=== PATIENT | male | born 1935 | race Caucasian/White ===

== ENCOUNTER 2022-12-02 09:46 | Emergency (ER) | payer MEDICARE ==
[2022-12-02 10:06] VITALS: RESP 18
[2022-12-02] MEDS ORDERED: CIPROFLOXACIN-DEXAMETH 0.3-0.1% DROPS 7.5 ML BTL RIGHT EAR STA (11:00)
--- NOTE | 2022-12-02 11:06 | ED ---
General Adult HPI - General Chief complaint: ENT Stated complaint: rt ear issues Time Seen by Provider: 12/02/22 10:09 Source: patient, RN notes reviewed Mode of arrival: ambulatory - History of Present Illness Initial comments: 87-year-old male presents emergency Department with chief complaint of right ear drainage and pain. He also reports muffled hearing. He states that he has had his ear irrigated from his primary care provider multiple times. He has been on neomycin drops for the past week. Patient states that he follows up closely with his primary care provider but he is visiting from out of town. He states that he is typically healthy. He reports that he is a nondiabetic. Denies fever, chills, nausea, vomiting. Denies dizziness. - Related Data Allergies Allergy/AdvReac Type Severity Reaction Status Date / Time No Known Allergies Allergy Verified 12/02/22 10:05 Review of Systems ROS Statement: Those systems with pertinent positive or pertinent negative responses have been documented in the HPI. ROS Other: All systems not noted in ROS Statement are negative. Past Medical History Past Medical History: Coronary Artery Disease (CAD) History of Any Multi-Drug Resistant Organisms: None Reported Past Surgical History: Coronary Bypass/CABG Past Psychological History: No Psychological Hx Reported Smoking Status: Never smoker Past Alcohol Use History: None Reported Past Drug Use History: None Reported General Exam Limitations: no limitations General appearance: alert, in no apparent distress Head exam: Present: atraumatic, normocephalic, normal inspection ENT exam: Present: normal exam, normal oropharynx, mucous membranes moist, TM's normal bilaterally, other (non-tender pinna, no tenderness over mastoid). Absent: normal external ear exam (purulent drainage from right ear canal with mild canal swelling) Neck exam: Present: normal inspection, full ROM. Absent: tenderness, meningismus, lymphadenopathy Respiratory exam: Present: normal lung sounds bilaterally. Absent: respiratory distress, wheezes, rales, rhonchi, stridor Cardiovascular Exam: Present: regular rate, normal rhythm, normal heart sounds. Absent: systolic murmur, diastolic murmur, rubs, gallop, clicks GI/Abdominal exam: Present: soft, normal bowel sounds. Absent: distended, tenderness, guarding, rebound, rigid Extremities exam: Present: normal inspection, full ROM, normal capillary refill. Absent: tenderness, pedal edema, joint swelling, calf tenderness Back exam: Present: normal inspection Neurological exam: Present: alert, oriented X3 Psychiatric exam: Present: normal affect, normal mood Skin exam: Present: warm, dry, intact, normal color. Absent: rash Course Vital Signs 12/02/22 12/02/22 10:01 11:51 Temperature 98.5 F 98.2 F Pulse Rate 70 72 Respiratory 18 18 Rate Blood Pressure 121/74 120/76 O2 Sat by Pulse 95 96 Oximetry Medical Decision Making - Medical Decision Making Was pt. sent in by a medical professional or institution (, PEYTON, RECREATIONAL RESORT MANAGER, urgent care, hospital, or senior care...) When possible be specific @ -No Did you speak to anyone other than the patient for history (EMS, parent, family, police, friend...)? What history was obtained from this source @ -No Did you review nursing and triage notes (agree or disagree)? Why? @ -I reviewed and agree with nursing and triage notes Were old charts reviewed (outside hosp., previous admission, EMS record, old EKG, old radiological studies, urgent care reports/EKG's, senior care records)? Report findings @ -No old charts were reviewed Differential Diagnosis (chest pain, altered mental status, abdominal pain women, abdominal pain men, vaginal bleeding, weakness, fever, dyspnea, syncope, headache, dizziness, GI bleed, back pain, seizure, CVA, palpatations, mental health, musculoskeletal)? @ -Otitis media, otitis externa, malignant otitis externa, mastoiditis, this list is not all-inclusive EKG interpreted by me (3pts min.). @ -none X-rays interpreted by me (1pt min.). @ -None done CT interpreted by me (1pt min.). @ -None done U/S interpreted by me (1pt. min.). @ -None done What testing was considered but not performed or refused? (CT, X-rays, U/S, labs)? Why? @ -None What meds were considered but not given or refused? Why? @ -None Did you discuss the management of the patient with other professionals (professionals i.e. PEYTON Quiroz, RECREATIONAL RESORT MANAGER, lab, RT, psych nurse, social scientist, regional sales engineer, teacher, commissioned security officer, renal case manager)? Give summary @ -No Was smoking cessation discussed for >3mins.? @ -No Was critical care preformed (if so, how long)? @ -No Were there social determinants of health that impacted care today? How? (Homelessness, low income, unemployed, alcoholism, drug addiction, transportation, low edu. Level, literacy, decrease access to med. care, longterm, rehab)? @ -No Was there de-escalation of care discussed even if they declined (Discuss DNR or withdrawal of care, Hospice)? DNR status @ -No What co-morbidities impacted this encounter? (DM, HTN, Smoking, COPD, CAD, Cancer, CVA, ARF, Chemo, Hep., AIDS, mental health diagnosis, sleep apnea, morbid obesity)? @ -None Was patient admitted / discharged? Hospital course, mention meds given and route, prescriptions, significant lab abnormalities, going to OR and other pertinent info. @ -Discharged. Patient presented to emergency department chief complaint of right ear drainage and muffled hearing. Patient has visible discharge from the right ear with mild erythema and swelling of the right ear canal. Patient has no risk factors for malignant otitis externa such as diabetes or immunosuppression. It is not having any systemic symptoms at this time. Patient ear drops switched to Ciprodex. Ear wick was placed. Patient given strict return precautions. Patient is going to follow up with his primary care provider when he returns home from his vacation or return to the nearest emergency Department if symptoms worsen or do not improve. Patient stable at time of discharge. Case discussed with my attending, Dr. [place] Undiagnosed new problem with uncertain prognosis? @ -No Drug Therapy requiring intensive monitoring for toxicity (Heparin, Nitro, Insulin, Cardizem)? @ -No Were any procedures done? @ -No Diagnosis/symptom? @ -Otitis externa Acute, or Chronic, or Acute on Chronic? @ -Acute Uncomplicated (without systemic symptoms) or Complicated (systemic symptoms)? @ -Uncomplicated Side effects of treatment? @ -No Exacerbation, Progression, or Severe Exacerbation? @ -No Poses a threat to life or bodily function? How? (Chest pain, USA, VA, pneumonia, PE, COPD, DKA, ARF, appy, cholecystitis, CVA, Diverticulitis, Homicidal, Ibrahim icidal, threat to staff... and all critical care pts) @ -No Disposition Clinical Impression: Otitis externa Disposition: HOME SELF-CARE Condition: Stable Instructions (If sedation given, give patient instructions): Earache (ED) Additional Instructions: Instill 4 ear drops twice a day for 1 week. Follow up with your primary care provider when you return home. Return to the emergency department if you develop new or worsening symptoms including fever. Is patient prescribed a controlled substance at d/c from ED?: No Referrals: Nonstaff,Physician [Primary Care Provider] - 1-2 days Time of Disposition: 11:28
[2022-12-02 11:53] VITALS: BP 120/76; PULSE 72; TEMP 98.2
== END 2022-12-02 11:36 | disposition home or self-care (01) ==
LOC: EC 09:46
DX: H60.91 Unspecified otitis externa, right ear (principal); I25.10 Atherosclerotic heart disease of native coronary artery without angina pectoris; Z95.1 Presence of aortocoronary bypass graft
CPT/HCPCS: 99282

== ENCOUNTER 2023-04-20 16:00 | Inpatient (IN) | payer MEDICARE ==
[2023-04-20 17:08] LABS: Basophils % (A) 1 %; Eosinophils # (A) 0.1 k/uL (0-0.7); Eosinophils % (A) 1 %; HCT 48.6 % (39.0-53.0); HGB 15.9 gm/dL (13.0-17.5); Hypochromasia Slight; Lymphocytes # (A) 1.1 k/uL (1.0-4.8); Lymphocytes % (A) 15 %; MCH 36.9 pg (25.0-35.0); MCHC 32.6 g/dL (31.0-37.0); MCV 112.9 fL (80.0-100.0); Macrocytosis Marked; Mean Platelet Volume 10.6; Monocytes # (A) 0.7 k/uL (0-1.0); Monocytes % (A) 9 %; Neutrophils # (A) 5.5 k/uL (1.3-7.7); Neutrophils % (A) 72 %; Platelet Count 125 k/uL (150-450); RDW 14.7 % (11.5-15.5); WBC 7.6 k/uL (3.8-10.6)
[2023-04-20 17:22] LABS: INR 1.1 (<1.2); Partial Thromboplastin Time 26.3 sec (22.0-30.0); Prothrombin Time 12.1 sec (10.0-12.5)
[2023-04-20 17:53] LABS: ALT 39 U/L (4-49); AST 62 U/L (17-59); African American GFR (CKD) 87 (>60 ml/min/1.73 sqM); Albumin 3.7 g/dL (3.5-5.0); Alkaline Phosphatase 218 U/L (38-126); Anion Gap 11 mmol/L; Blood Urea Nitrogen 28 mg/dL (9-20); Calcium 9.1 mg/dL (8.4-10.2); Carbon Dioxide 24 mmol/L (22-30); Chloride 100 mmol/L (98-107); Glucose 90 mg/dL (74-99); Non-African American GFR(CKD) 76 (>60 ml/min/1.73 sqM); Potassium 4.8 mmol/L (3.5-5.1); Sodium 135 mmol/L (137-145); Total Bilirubin 1.5 mg/dL (0.2-1.3); Total Protein 7.3 g/dL (6.3-8.2)
[2023-04-20 18:00] LABS: NT-Pro-B-Type Natriuretic Pept 5120 pg/mL
[2023-04-20] MEDS ORDERED: FUROSEMIDE 10 MG/ML 4 ML VIAL IV STA (18:11)
[2023-04-20] MEDS ORDERED: ASPIRIN 81 MG PO STA (18:11)
[2023-04-20] MEDS ORDERED: NALOXONE 0.4 MG/ML 1 ML VIAL IV PRN (18:22)
--- NOTE | 2023-04-20 18:23 | ED ---
General Adult HPI - General Chief complaint: Shortness of Breath Stated complaint: GARCIA-Leg swelling Time Seen by Provider: 04/20/23 16:25 Source: patient, RN notes reviewed, old records reviewed Mode of arrival: wheelchair Limitations: no limitations - History of Present Illness Initial comments: Patient is a 88-year-old male who recently moved here from [place] some last week presents emergency Department complaint worsening shortness of breath for t he last 2-3 weeks. Also has noticed worsening lower extremity edema. Denies any chest pain. Endorses worsening orthopnea and exertional dyspnea. Is supposed family 6 but has been without a prescription for the last 3 weeks. Has a history of CABG. Also had a history of atrial fibrillation previous on blood thinners but no longer on blood thinners. Has a pacemaker. Denies any nausea or vomiting. Does endorse mild weakness. Has no other acute complaints at this time. Recently moved here and has not established care with anyone in the area. Presents for further evaluation at this time. - Related Data Allergies Allergy/AdvReac Type Severity Reaction Status Date / Time No Known Allergies Allergy Verified 04/20/23 16:20 Review of Systems ROS Statement: Those systems with pertinent positive or pertinent negative responses have been documented in the HPI. Review of Systems: CONST: Denies fever EYES: Denies blurry vision ENT: Denies nasal congestion C/V: Denies Chest pain RESP: Endorses dyspnea GI: Denies abdominal pain : Denies dysuria SKIN: Denies rash. MSK: Denies joint pain. NEURO: Denies headache ROS Other: All systems not noted in ROS Statement are negative. Past Medical History Past Medical History: Coronary Artery Disease (CAD) History of Any Multi-Drug Resistant Organisms: None Reported Past Surgical History: Coronary Bypass/CABG Past Psychological History: No Psychological Hx Reported Smoking Status: Never smoker Past Alcohol Use History: None Reported Past Drug Use History: None Reported General Exam - General Exam Comments Initial Comments: General: Appears in no acute distress. HEAD: Normal with no signs of head trauma. EYES: PERRLA, EOMI, conjunctiva normal, no discharge. ENT: Hearing grossly intact, normal oropharynx. RESPIRATORY: Coarse breath sounds bilaterally. Normal oximetry on 3 L nasal cannula. No increased work of breathing at rest. C/V: Regular rate and rhythm. S1 and S2 auscultated, 3+ bilateral lower extremity pitting edema that is symmetric., peripheral pulses 2+ and intact throughout ABD: Abd is soft, nontender, nondistended EXT: Normal range of motion, no obvious deformity SKIN: No rashes or lesions observed on exposed skin. NEURO: Alert and oriented x 4. Limitations: no limitations Course Vital Signs 04/20/23 04/20/23 16:12 16:42 Temperature 97.8 F Pulse Rate 73 69 Respiratory 20 20 Rate Blood Pressure 135/72 127/85 O2 Sat by Pulse 99 100 Oximetry Medical Decision Making - Medical Decision Making Was pt. sent in by a medical professional or institution (, PA, INDUSTRIAL ENGINEER, urgent care, hospital, or long term...) When possible be specific @ -No Did you speak to anyone other than the patient for history (EMS, parent, family, police, friend...)? What history was obtained from this source @ -No Did you review nursing and triage notes (agree or disagree)? Why? @ -I reviewed and agree with nursing and triage notes Were old charts reviewed (outside hosp., previous admission, EMS record, old EKG, old radiological studies, urgent care reports/EKG's, long term records)? Report findings @ -No old charts were reviewed Differential Diagnosis (chest pain, altered mental status, abdominal pain women, abdominal pain men, vaginal bleeding, weakness, fever, dyspnea, syncope, h eadache, dizziness, GI bleed, back pain, seizure, CVA, palpatations, mental health, musculoskeletal)? @ -Differential Dyspnea: Coronary syndrome, arrhythmia, tamponade, asthma, COPD, pulmonary embolism, pneumonia, pneumothorax, pulmonary effusion, anaphylaxis, diabetic ketoacidosis, flailed chest, pulmonary contusion, diaphragmatic rupture, anemia, neuromuscular, this is not meant to be an all-inclusive list. EKG interpreted by me (3pts min.). @ -As above X-rays interpreted by me (1pt min.). @ -Chest x-ray reveals diffuse bilateral pulmonary vascular congestion CT interpreted by me (1pt min.). @ -None done U/S interpreted by me (1pt. min.). @ -None done What testing was considered but not performed or refused? (CT, X-rays, U/S, labs)? Why? @ -None What meds were considered but not given or refused? Why? @ -None Did you discuss the management of the patient with other professionals (professionals i.e. , PA, INDUSTRIAL ENGINEER, lab, RT, psych nurse, child welfare social worker, k [employer] school principal, teacher, transport corps officer, case management specialist)? Give summary @ - I spoke with the admitting physician, [facility] call Dr. Koroma [facility] who accepted the patient. Was smoking cessation discussed for >3mins.? @ -No Was critical care preformed (if so, how long)? @ -No Were there social determinants of health that impacted care today? How? (Homelessness, low income, unemployed, alcoholism, drug addiction, transportation, low edu. Level, literacy, decrease access to med. care, detention, rehab)? @ -No Was there de-escalation of care discussed even if they declined (Discuss DNR or withdrawal of care, Hospice)? DNR status @ -No What co-morbidities impacted this encounter? (DM, HTN, Smoking, COPD, CAD, Cancer, CVA, ARF, Chemo, Hep., AIDS, mental health diagnosis, sleep apnea, morbi d obesity)? @ -None Was patient admitted / discharged? Hospital course, mention meds given and route, prescriptions, significant lab abnormalities, going to OR and other pertinent info. @ -Based on patient's presentation and physical exam, I do strongly suspect a CHF exacerbation. The patient. We will obtain cardiac primary labs. He was in agreement this plan. Vital signs within acceptable limits at this time. EKG shows no signs of acute ischemia. Chest x-ray shows diffuse pulmonary vascular congestion. Labs are remarkable for a BNP of 5100. Troponin is not elevated. Remainder the labs except for limits. I did the patient. He will be admitted. Cardiology consulted. Echo ordered. Patient started on twice a day 40 mg Lasix. He was in agreement this plan. Patient is uncertain what his home dose of Lasix was. I spoke with the admitting physician, [facility] call Dr. Rodriguez [facility] who accepted the patient. Undiagnosed new problem with uncertain prognosis? @ -No Drug Therapy requiring intensive monitoring for toxicity (Heparin, Nitro, Insulin, Cardizem)? @ -No Were any procedures done? @ -No Diagnosis/symptom? @ -CHF Acute, or Chronic, or Acute on Chronic? @ -Acute on chronic Uncomplicated (without systemic symptoms) or Complicated (systemic symptoms)? @ -Complicated Side effects of treatment? @ -No Exacerbation, Progression, or Severe Exacerbation? @ -Exacerbation Poses a threat to life or bodily function? How? (Chest pain, USA, VA, pneumonia, PE, COPD, DKA, ARF, appy, cholecystitis, CVA, Diverticulitis, Homicidal, Suicidal, threat to staff... and all critical care pts) @ -Yes - Lab Data Result diagrams: 04/20/23 16:54 04/20/23 16:54 Lab Results 04/20/23 04/20/23 04/20/23 Range/Units 16:54 16:54 16:54 WBC 7.6 (3.8-10.6) k/uL RBC 4.30 (4.30-5.90) m/uL Hgb 15.9 (13.0-17.5) gm/dL Hct 48.6 (39.0-53.0) % MCV 112.9 H (80.0-100.0) fL MCH 36.9 H (25.0-35.0) pg MCHC 32.6 (31.0-37.0) g/dL RDW 14.7 (11.5-15.5) % Plt Count 125 L (150-450) k/uL MPV 10.6 Neutrophils % 72 % Lymphocytes % 15 % Monocytes % 9 % Eosinophils % 1 % Basophils % 1 % Neutrophils # 5.5 (1.3-7.7) k/uL Lymphocytes # 1.1 (1.0-4.8) k/uL Monocytes # 0.7 (0-1.0) k/uL Eosinophils # 0.1 (0-0.7) k/uL Basophils # 0.0 (0-0.2) k/uL Manual Slide Review Performed Hypochromasia Slight Macrocytosis Marked A PT 12.1 (10.0-12.5) sec INR 1.1 (<1.2) APTT 26.3 (22.0-30.0) sec Sodium 135 L (137-145) mmol/L Potassium 4.8 (3.5-5.1) mmol/L Chloride 100 (98-107) mmol/L Carbon Dioxide 24 (22-30) mmol/L Anion Gap 11 mmol/L BUN 28 H (9-20) mg/dL Creatinine 0.91 (0.66-1.25) mg/dL Est GFR (CKD-EPI)AfAm 87 (>60 ml/min/1.73 sqM) Est GFR (CKD-EPI)NonAf 76 (>60 ml/min/1.73 sqM) Glucose 90 (74-99) mg/dL Calcium 9.1 (8.4-10.2) mg/dL Magnesium 2.0 (1.6-2.3) mg/dL Total Bilirubin 1.5 H (0.2-1.3) mg/dL AST 62 H (17-59) U/L ALT 39 (4-49) U/L Alkaline Phosphatase 218 H (38-126) U/L Troponin I (0.000-0.034) ng/mL NT-Pro-B Natriuret Pep 5120 pg/mL Total Protein 7.3 (6.3-8.2) g/dL Albumin 3.7 (3.5-5.0) g/dL Influenza Type A (PCR) (Not Detectd) Influenza Type B (PCR) (Not Detectd) RSV (PCR) (Not Detectd) SARS-CoV-2 (PCR) (Not Detectd) 04/20/23 04/20/23 Range/Units 16:54 16:54 WBC (3.8-10.6) k/uL RBC (4.30-5.90) m/uL Hgb (13.0-17.5) gm/dL Hct (39.0-53.0) % MCV (80.0-100.0) fL MCH (25.0-35.0) pg MCHC (31.0-37.0) g/dL RDW (11.5-15.5) % Plt Count (150-450) k/uL MPV Neutrophils % % Lymphocytes % % Monocytes % % Eosinophils % % Basophils % % Neutrophils # (1.3-7.7) k/uL Lymphocytes # (1.0-4.8) k/uL Monocytes # (0-1.0) k/uL Eosinophils # (0-0.7) k/uL Basophils # (0-0.2) k/uL Manual Slide Review Hypochromasia Macrocytosis PT (10.0-12.5) sec INR (<1.2) APTT (22.0-30.0) sec Sodium (137-145) mmol/L Potassium (3.5-5.1) mmol/L Chloride (98-107) mmol/L Carbon Dioxide (22-30) mmol/L Anion Gap mmol/L BUN (9-20) mg/dL Creatinine (0.66-1.25) mg/dL Est GFR (CKD-EPI)AfAm (>60 ml/min/1.73 sqM) Est GFR (CKD-EPI)NonAf (>60 ml/min/1.73 sqM) Glucose (74-99) mg/dL Calcium (8.4-10.2) mg/dL Magnesium (1.6-2.3) mg/dL Total Bilirubin (0.2-1.3) mg/dL AST (17-59) U/L ALT (4-49) U/L Alkaline Phosphatase (38-126) U/L Troponin I 0.030 (0.000-0.034) ng/mL NT-Pro-B Natriuret Pep pg/mL Total Protein (6.3-8.2) g/dL Albumin (3.5-5.0) g/dL Influenza Type A (PCR) Not Detected (Not Detectd) Influenza Type B (PCR) Not Detected (Not Detectd) RSV (PCR) Not Detected (Not Detectd) SARS-CoV-2 (PCR) Not Detected (Not Detectd) - EKG Data -: EKG Interpreted by Me EKG Comments: 12-lead Electrocardiogram Interpretation Note EKG was reviewed and interpreted by myself. 12-lead ECG performed at 1629 is interpreted by me as revealing a paced rhythm at a rate of at 72 beats per minute. NE interval is 97 ms, QRS duration is 99 ms, QTc is 403 ms.. There were no obvious acute ST or T wave abnormalities to suggest myocardial ischemia or injury. R wave progression across the precordium was delayed. By my interpretation this EKG is non-diagnostic for acute ischemia. Disposition Clinical Impression: Congestive heart failure Disposition: ADMITTED IP TO THIS HOSP Condition: Stable Referrals: None,Stated [Primary Care Provider] - 1-2 days Time of Disposition: 18:11
[2023-04-20] MEDS: HEPARIN SODIUM,PORCINE 5,000 UNIT/ML 1 ML VIAL SQ SCH (20:14)
--- NOTE | 2023-04-20 20:57 | XR ---
EXAMINATION TYPE: XR chest 2V DATE OF EXAM: 04/20/2023 COMPARISON: None HISTORY: 88 year-old male shortness of breath, difficulty breathing TECHNIQUE: AP and lateral views FINDINGS: Median sternotomy wires are present with post-CABG changes. Left anterior chest wall pacemaker genera tor with right atrial and right ventricular leads. Heart mildly enlarged. Diffuse interstitial and pa tchy opacities are present throughout the lungs. Small bilateral pleural effusions. IMPRESSION: CHF with diffuse bilateral patchy pulmonary edema. Small effusions.
--- NOTE | 2023-04-21 01:57 | P.HPIM ---
History of Present Illness H&P Date: 04/20/23 Patient is a 88-year-old male with a PMH of CHF with pacemaker placement who presents to the emergency room with complaints of shortness of breath and lower extremity edema. The patient reports that he recently moved from [place] to be closer to his son here in [place]. He ran out of his Lasix 3 weeks ago. Reports gradually worsening dyspnea on exertion, lower extremity edema, and orthopnea. Denied chest discomfort, cough, fever, chills, nausea, vomiting. In the emergency room a chest x-ray revealed findings consistent with CHF with EKG showing an intermittently v-paced rhythm at 72 bpm as reviewed by me. Laboratory evaluation revealed a proBNP 5120, MCV 112.9, platelet count 125, tro ponin 0.030, total bilirubin 1.5, AST 62. ED documentation reviewed and case discussed with ED provider. Review of systems: Pertinent positives and negatives as discussed in HPI, a complete review of systems was performed and all other systems are negative. Physical examination: Vital signs reviewed General: non toxic, no distress, appears at stated age, normal weight Derm: no unusual rashes/lesions, warm Head: atraumatic, normocephalic, symmetric Eyes: EOMI, no lid lag, anicteric sclera, pupils equal round reactive to light ENT: Nose and ears atraumatic Neck: No cervical lymphadenopathy, trachea midline, supple Mouth: no lip lesion, mucus membranes moist Cardiovascular: S1S2 reg, no murmur, positive dorsalis pedis pulse bilateral, 2+ bilateral lower extremity pitting edema Lungs: Bibasilar rales without rhonchi or wheezing, no accessory muscle use Abdominal: soft, nontender to palpation, no guarding Ext: muscle strength 5 out of 5 in all 4 extremities grossly, no gross muscle atrophy, no contractures, Neuro: CN II-XI grossly intact, no gross focal neuro deficits Psych: Alert, oriented, appropriate affect Assessment: Acute CHF exacerbation Macrocytosis Thrombocytopenia, no baseline available for comparison Imaging: In the emergency room a chest x-ray revealed findings consistent with CHF with EKG showing an intermittently v-paced rhythm at 72 bpm as reviewed by me. Data Review: Laboratory evaluation revealed MCV 112.9, platelet count 125, troponin 0.030, total bilirubin 1.5, AST 62. Plan: Continue with Lasix IV 40 mg every 12 hourly Intake and output Daily weights Cardiology consult Cardiac monitoring Fluid restriction Check B12 and folate levels Obtain right upper quadrant ultrasound Monitor CBC Obtain echocardiogram DVT prophylaxis: Heparin subq The patient is admitted with an anticipated less than 2 midnight stay for evalu ation of acute CHF exacerbation CODE STATUS: Full Code Discussed with: Patient Anticipated discharge place: Home Past Medical History Past Medical History: Coronary Artery Disease (CAD) History of Any Multi-Drug Resistant Organisms: None Reported Past Surgical History: Coronary Bypass/CABG Past Psychological History: No Psychological Hx Reported Smoking Status: Never smoker Past Alcohol Use History: None Reported Past Drug Use History: None Reported Medications and Allergies Home Medications Medication Instructions Recorded Confirmed Type Thyroid,Pork [[place] Thyroid] 120 mg PO DAILY 04/20/23 04/20/23 History Allergies Allergy/AdvReac Type Severity Reaction Status Date / Time No Known Allergies Allergy Verified 04/20/23 18:47 Physical Exam Vitals: Vital Signs Temp Pulse Resp BP Pulse Ox 04/20/23 19:00 72 22 143/98 100 04/20/23 18:00 73 22 138/88 98 04/20/23 17:30 73 22 135/91 99 04/20/23 16:42 69 20 127/85 100 04/20/23 16:12 97.8 F 73 20 135/72 99 Intake and Output 04/20/23 04/20/23 04/21/23 14:59 22:59 06:59 Other: Weight 83.915 kg Results CBC & Chem 7: 04/20/23 16:54 04/20/23 16:54 Labs: Abnormal Lab Results - Last 24 Hours (Table) 04/20/23 04/20/23 Range/Units 16:54 16:54 MCV 112.9 H (80.0-100.0) fL MCH 36.9 H (25.0-35.0) pg Plt Count 125 L (150-450) k/uL Macrocytosis Marked A Sodium 135 L (137-145) mmol/L BUN 28 H (9-20) mg/dL Total Bilirubin 1.5 H (0.2-1.3) mg/dL AST 62 H (17-59) U/L Alkaline Phosphatase 218 H (38-126) U/L
[2023-04-21] MEDS: METOPROLOL SUCCINATE (ER) 25 MG TAB.ER.24H PO SCH (09:35)
[2023-04-21] MEDS: ASPIRIN 81 MG PO SCH (09:35)
[2023-04-21] MEDS: HEPARIN SODIUM,PORCINE 5,000 UNIT/ML 1 ML VIAL SQ SCH ×2 (09:36→20:17)
[2023-04-21] MEDS: FUROSEMIDE 10 MG/ML 4 ML VIAL IV SCH ×2 (09:36→20:17)
[2023-04-21] MEDS: THYROID, PORK 30 MG TAB PO SCH (10:04)
--- NOTE | 2023-04-21 10:17 | P.CRDCN ---
History of Present Illness Consult date: 04/21/23 Consult reason: congestive heart failure History of present illness: History of present illness: This is an 88-year-old male patient recently moved from [place] with past medical history of pacemaker, chronic atrial fibrillation, congestive heart failure, status post CABG in 2013-details not available. We have been asked to see the patient for CHF. Patient states he moved to [place] 3 days ago to apartment with his and will be near his son. He states he ran out of [employer] 2 weeks ago. He has chronic shortness of breath that has been going on for the past 6 months especially at nighttime but much worse over the past few days along with increased edema in his legs up to his thighs. He aslo complains of generalized pain in his legs from the edema. EKG pacemaker rhythm with intermittent atrial fibrillation Chest x-ray: CHF with diffuse bilateral patchy pulmonary edema. Small effusions. WBC 7.6, hemoglobin 15.9, platelet count 125. INR 1.1. Sodium 135, potassium 4.8, chloride 100, CO2 24, BUN 28 creatinine 0.91. Troponin negative 3. Magnesium 2.0. Blood sugar 90. Total bilirubin 1.5, AST 62, ALT 39, alkaline phosphatase 218. ProBNP 5120. Influenza A, influenza B, RSV, Covid 19 not detected Home cardiac medications: Only listed medication is [place] Thyroid. Review Of Systems: At the time of my exam: CONSTITUTIONAL: Denies fever or chills. CARDIOVASCULAR: Denies chest pain, + shortness of breath, no orthopnea, PND or palpitations. + edema. RESPIRATORY: Denies cough. GASTROINTESTINAL: Denies abdominal pain, diarrhea, constipation, nausea or vomiting. MUSCULOSKELETAL: Denies myalgias. NEUROLOGIC: Denies numbness, tingling or weakness. ENDOCRINE: Denies fatigue, weight change, polydipsia or polyurina. GENITOURINARY: Denies burning, hematuria or urgency with micturation. HEMATOLOGIC: Denies history of anemia or bleeding. Physical examination: Gen: This is an 88-year-old male resting on ER stretcher and appears to be comfortable and in no acute distress. No acute respiratory distress noted. VS: reviewed HEENT: Head is atraumatic, normocephalic. Pupils equal, round. Sclerae is anicteric. NECK: Supple. No JVD. LUNGS: Clear to auscultation. No wheezes or rhonchi. No intercostal retractions. HEART: Regular rate and rhythm. No murmur. ABDOMEN: Soft No tenderness. EXTREMITIES: 2+ pedal edema with edema up into the thigh. No calf tenderness. NEUROLOGICAL: Patient is awake, alert and oriented x3. Assessment: Acute on chronic heart failure Chronic atrial fibrillation status post pacemaker Coronary artery disease with previous CABG in 2012 Hypothyroidism Thrombocytopenia Plan: Continue patient on IV Lasix 40 mg every 12 hours Monitor I&O, who daily weights, electrolytes and renal function Start patient on aspirin 81 mg daily, atorvastatin 40 mg at bedtime, Toprol-XL 25 mg daily Obtain 2-D echocardiogram and Doppler study to assess cardiac structure and function Obtain cardiac records from patient's shop lead and [place] Obtain TSH with reflex free T4 Interrogate pacemaker, Medtronic Further recommendations to follow based upon clinical course Thank you kindly for this consultation. Nurse practitioner note has been reviewed, I agree with documented findings and plan of care. Patient was seen and examined. Past Medical History Past Medical History: Coronary Artery Disease (CAD) History of Any Multi-Drug Resistant Organisms: None Reported Past Surgical History: Coronary Bypass/CABG Past Psychological History: No Psychological Hx Reported Smoking Status: Never smoker Past Alcohol Use History: None Reported Past Drug Use History: None Reported Medications and Allergies Home Medications Medication Instructions Recorded Confirmed Type Thyroid,Pork [[place] Thyroid] 120 mg PO DAILY 04/20/23 04/20/23 History Allergies Allergy/AdvReac Type Severity Reaction Status Date / Time No Known Allergies Allergy Verified 04/20/23 18:47 Physical Exam Vitals: Vital Signs Temp Pulse Resp BP Pulse Ox 04/21/23 07:56 100 04/21/23 06:00 71 18 144/86 100 04/21/23 02:00 72 18 139/97 100 04/20/23 22:00 70 20 124/76 100 04/20/23 19:00 72 22 143/98 100 04/20/23 18:00 73 22 138/88 98 04/20/23 17:30 73 22 135/91 99 04/20/23 16:42 69 20 127/85 100 04/20/23 16:12 97.8 F 73 20 135/72 99 Intake and Output 04/20/23 04/21/23 04/21/23 22:59 06:59 14:59 Other: Weight 83.915 kg Results 04/20/23 16:54 04/20/23 16:54 Cardiac Enzymes 04/20/23 04/20/23 04/20/23 Range/Units 16:54 16:54 22:14 AST 62 H (17-59) U/L Troponin I 0.030 0.024 (0.000-0.034) ng/mL 04/21/23 Range/Units 01:08 AST (17-59) U/L Troponin I 0.027 (0.000-0.034) ng/mL Coagulation 04/20/23 Range/Units 16:54 PT 12.1 (10.0-12.5) sec APTT 26.3 (22.0-30.0) sec CBC 04/20/23 Range/Units 16:54 WBC 7.6 (3.8-10.6) k/uL RBC 4.30 (4.30-5.90) m/uL Hgb 15.9 (13.0-17.5) gm/dL Hct 48.6 (39.0-53.0) % Plt Count 125 L (150-450) k/uL Comprehensive Metabolic Panel 04/20/23 Range/Units 16:54 Sodium 135 L (137-145) mmol/L Potassium 4.8 (3.5-5.1) mmol/L Chloride 100 (98-107) mmol/L Carbon Dioxide 24 (22-30) mmol/L BUN 28 H (9-20) mg/dL Creatinine 0.91 (0.66-1.25) mg/dL Glucose 90 (74-99) mg/dL Calcium 9.1 (8.4-10.2) mg/dL AST 62 H (17-59) U/L ALT 39 (4-49) U/L Alkaline Phosphatase 218 H (38-126) U/L Total Protein 7.3 (6.3-8.2) g/dL Albumin 3.7 (3.5-5.0) g/dL Current Medications Generic Name Dose Route Start Last Admin Trade Name Freq PRN Reason Stop Dose Admin Furosemide 40 mg 04/21/23 09:00 Furosemide 10 Mg/Ml 4 Ml Vial IV Q12HR EDWARD Heparin Sodium (Porcine) 5,000 unit 04/20/23 21:00 04/20/23 20:14 Heparin Sodium,Porcine 5,000 Unit/Ml 1 Ml Vial SQ Not Given Q12HR EDWARD Naloxone HCl 0.2 mg 04/20/23 18:22 Naloxone 0.4 Mg/Ml 1 Ml Vial IV Q2M PRN Opioid Reversal Intake and Output 04/20/23 04/21/23 04/21/23 22:59 06:59 14:59 Other: Weight 83.915 kg 04/20/23 16:54 04/20/23 16:54
--- NOTE | 2023-04-21 11:12 | US ---
EXAMINATION TYPE: US liver DATE OF EXAM: 04/21/2023 COMPARISON: NONE CLINICAL INDICATION: Male, 88 years old with history of elevated t bili; elevated t bilirubin TECHNIQUE: Multiple sonographic images of the right upper quadrant are obtained. FINDINGS: EXAM MEASUREMENTS: Liver Length: 16.6 cm Gallbladder Wall: 0.3 cm CBD: 0.4 cm Right Kidney: 10.6x4.9x4.6 cm CORE ANALYST NOTES: IVC distended to 2.9cm, right pleural effusion, exam limited by limited patient mo bility and ability to hold deep breath, bowel, body habitus, and rib shadows Pancreas: The body and tail of the pancreas are of scattered bowel gas shadowing. Liver: Coarse in appearance, slightly nodular contour, free fluid noted superior to liver Gallbladder: [id number] sign indicating GB packed with stones, imaged in supine only due to li mited patient mobility Evidence for sonographic Green's sign: No CBD: wnl Right Kidney: No hydronephrosis or masses seen IMPRESSION: 1. Cirrhosis. Very limited detailed assessment of the liver parenchyma due to above-mentioned limitat ions. No obvious visualized hepatoma. Appropriate follow-up recommended. 2. Wall echo shadow complex when imaging the gallbladder compatible with a gallbladder packed with st ones. 3. No biliary ductal dilatation. 3. Mild ascites suggests portal venous hypertension. Distention of the IVC may reflect fluid overload state.
[2023-04-21 11:44] LABS: BUN/Creat Ratio 26.22 Ratio (12.00-20.00); Blood Urea Nitrogen 23.6 mg/dL (9.0-27.0); Carbon Dioxide 21.9 mmol/L (21.6-31.8); Chloride 100 mmol/L (96-109); Glucose 86 mg/dL (70-110); Potassium 4.6 mmol/L (3.5-5.5); Sodium 138 mmol/L (135-145)
[2023-04-21 12:23] LABS: Basophils # (A) 0.04 X 10*3/uL (0.00-0.10); Basophils % (A) 0.4 %; Eosinophils # (A) 0.15 X 10*3/uL (0.04-0.35); Eosinophils % (A) 1.7 %; HCT 44.7 % (39.6-50.0); Lymphocytes # (A) 1.28 X 10*3/uL (0.90-5.00); Lymphocytes % (A) 14.3 %; MCH 36.9 pg (27.0-32.0); MCHC 33.6 g/dL (32.0-37.0); MCV 110.1 FL (80.0-97.0); Macrocytosis (M) 3+; Mean Platelet Volume 11.9 FL (9.5-12.2); Monocytes # (A) 1.19 X 10*3/uL (0.20-1.00); Monocytes % (A) 13.3 %; NRBC Per 100 WBC 0 X 10*3/uL (0.00-0.01); Neutrophils # (A) 6.27 X 10*3/uL (1.80-7.70); Neutrophils % (A) 69.9 %; Platelet Count 135 X 10*3/uL (140-440); RBC 4.06 X 10*6/uL (4.40-5.60); WBC 8.97 X 10*3/uL (4.50-10.00)
--- NOTE | 2023-04-21 17:42 | P.PN ---
Subjective Progress Note Date: 04/21/23 Hospital course: Patient is a very pleasant 88-year-old male with a past medical history of CAD status post CABG, ischemic cardiomyopathy with chronic congestive heart failure status post pacemaker placement. He presented to the emergency department on 04/20/23 secondary to chief complaint of shortness of breath and increased bilateral lower extremity edema. Patient reports he has recently moved to [place] from [place] and ran out of his diuretics 3 weeks ago. Patient underwent full evaluation in the emergency department. Vital signs upon arrival blood pressure 135/72, heart rate 73, respiratory rate 20, temp 97.8F, SpO2 of 99% on room air. EKG completed showing an intermittently ventricular paced rhythm at 72 bpm. Chest x-ray completed showing CHF with diffuse bilateral patchy pulmonary edema and small pleural effusions. Labs completed and reviewed. CBC showed macrocytosis with MCV of 112.9. Coagulation profile normal findings. BMP revealing prerenal azotemia with BUN of 20 and otherwise normal findings. Blood glucose was 90. Magnesium normal findings at 2.0. Liver profile showing elevated total bili of 1.5, AST of 62, and alkaline phosphatase of 218. Troponin 0.030 and proBNP 5120. Influenza A, influenza B, RSV, Covid PCR were all negative. Patient was admitted under services for CHF exacerbation with consultation to cardiology. Troponins trended overnight resulting at 0.030, 0.024, and 0.027. Physical exam: Vital signs reviewed and stable. General: Nontoxic, no distress and appears stated age. Derm: Skin warm and dry, normal coloration for ethnicity. Head: Atraumatic, normocephalic and symmetric. Eyes: EOMs intact, no lid lag, and anicteric sclera Mouth: no lip lesions, mucus membranes moist Cardiovascular: regular rate and rhythm with normal S1S2, systolic murmur, positive posterior tibial pulses bilaterally, and cap refill < 2 seconds. Lungs: Respirations even, regular, and unlabored on room air. Lungs diminished, no rhonchi, no rales, no wheezing, and no accessory muscle usage. Abdominal: soft, nontender to palpation, no guarding, no appreciable organomegaly Ext: ROM intact. No gross muscle atrophy, 2+ pitting bilateral lower extremity edema, no contractures Neuro: Speech clear, face symmetrical and CN II-XII grossly intact with no noted focal neuro deficits Psych: Alert and oriented to person, place, time, and situation. Appropriate and pleasant affect. Assessment and Plan of Care: Acute exacerbation of chronic heart failure unclear type pending echocardiogram History of CAD status post CABG History of ischemic cardiomyopathy with chronic heart failure status post pacemaker placement -Cardiology consult -Telemetry monitoring -Troponins trended overnight. Resulting at 0.030, 0.024, and 0.027. -ProBNP 5120 -Daily weights -Close monitoring of I's and O's -Cardiac diet -Lasix 40 mg IVP every 12 hours -Aspirin 81 mg daily, atorvastatin 40 mg nightly, and metoprolol 25 mg dailys. -Continued close monitoring of electrolytes while diuresing. Hypothyroidism -Continue [place] Thyroid 120 mg daily. -Order placed for TSH with free T4. Data and imaging reviewed: Vital signs reviewed. Blood pressure 130/82, heart rate 70, respiratory rate 18, temp 98.1F, SpO2 of 94% on 3 L O2 via nasal cannula. Daily labs reviewed. CBC showing macrocytosis with MCV of 110.1 and MCH of 36.9 along with thrombocytopenia with platelet count of 135. BMP unremarkable. Glucose 86. CODE STATUS: Full code DVT prophylaxis: Heparin Anticipated discharge date: Clinical course to determine Anticipated discharge place: Clinical course to determine Patient was seen independently by Nurse Pracitioner. This document was prepared using [employer] dictation software. Please allow for errors in radiology transcriptionist, while rare they do occur. I reviewed the documentation as provided by the DANICA above, who is the original author of this note. I agree with the documented assessment and plan, with the following changes: none Objective - Vital Signs Vital signs: Vital Signs Temp 97.8 F 04/20/23 16:12 Pulse 71 04/21/23 06:00 Resp 18 04/21/23 06:00 BP 144/86 04/21/23 06:00 Pulse Ox 100 04/21/23 07:56 FiO2 Intake & Output 04/20/23 04/21/23 04/21/23 18:59 06:59 18:59 Weight 83.915 kg - Labs CBC & Chem 7: 04/21/23 07:21 04/21/23 07:21 Labs: Abnormal Lab Results - Last 24 Hours (Table) 04/20/23 04/20/23 Range/Units 16:54 16:54 MCV 112.9 H (80.0-100.0) fL MCH 36.9 H (25.0-35.0) pg Plt Count 125 L (150-450) k/uL Macrocytosis Marked A Sodium 135 L (137-145) mmol/L BUN 28 H (9-20) mg/dL Total Bilirubin 1.5 H (0.2-1.3) mg/dL AST 62 H (17-59) U/L Alkaline Phosphatase 218 H (38-126) U/L
[2023-04-21] MEDS: ATORVASTATIN 40 MG TAB PO SCH (20:17)
[2023-04-22] MEDS: FUROSEMIDE 10 MG/ML 4 ML VIAL IV SCH ×2 (08:45→20:45)
[2023-04-22] MEDS: HEPARIN SODIUM,PORCINE 5,000 UNIT/ML 1 ML VIAL SQ SCH ×2 (08:46→20:45)
[2023-04-22] MEDS: METOPROLOL SUCCINATE (ER) 25 MG TAB.ER.24H PO SCH (08:46)
[2023-04-22] MEDS: THYROID, PORK 30 MG TAB PO SCH (08:46)
[2023-04-22 08:58] LABS: HCT 46.2 % (39.6-50.0); HGB 15.4 g/dL (13.0-17.0); MCH 36.7 pg (27.0-32.0); MCHC 33.3 g/dL (32.0-37.0); NRBC Per 100 WBC 0 X 10*3/uL (0.00-0.01); Platelet Count 138 X 10*3/uL (140-440)
[2023-04-22] MEDS: ASPIRIN 81 MG PO SCH (09:08)
[2023-04-22 09:14] LABS: Blood Urea Nitrogen 20.6 mg/dL (9.0-27.0); Carbon Dioxide 30.2 mmol/L (21.6-31.8); Chloride 98 mmol/L (96-109); Glucose 93 mg/dL (70-110); Magnesium 1.8 mg/dL (1.5-2.4); Potassium 4.9 mmol/L (3.5-5.5); Sodium 136 mmol/L (135-145)
--- NOTE | 2023-04-22 11:06 | P.PN ---
Subjective Progress Note Date: 04/22/23 Consult reason: congestive heart failure History of present illness: History of present illness: This is an 88-year-old male patient recently moved from [place] with past medical history of pacemaker, chronic atrial fibrillation, congestive heart failure, status post CABG in 2012-details not available. We have been asked to see the patient for CHF. Patient states he moved to [place] 3 days ago to apartment with his and will be near his son. He states he ran out of lasix 2 weeks ago. He has chronic shortness of breath that has been going on for the past 6 months especially at nighttime but much worse over the past few days along with increased edema in his legs up to his thighs. He aslo complains of generalized pain in his legs from the edema. EKG pacemaker rhythm with intermittent atrial fibrillation Chest x-ray: CHF with diffuse bilateral patchy pulmonary edema. Small effusions. WBC 7.6, hemoglobin 15.9, platelet count 125. INR 1.1. Sodium 135, potassium 4.8, chloride 100, CO2 24, BUN 28 creatinine 0.91. Troponin negative 3. Magnesium 2.0. Blood sugar 90. Total bilirubin 1.5, AST 62, ALT 39, alkaline phosphatase 218. ProBNP 5120. Influenza A, influenza B, RSV, Covid 19 not detected Home cardiac medications: Only listed medication is [place] Thyroid. 04/22 Patient is seen today in follow-up on the [facility] floor. He continues to have some lower extremity edema and decreased breath sounds at the bases. He has b een maintained on IV Lasix 40 mg every 12 hours. He has documented urine output of 2000 mL's, weight does not appear accurate. Repeat blood work reveals hemoglobin 15.4. BUN 20 creatinine 1.0. TSH came back at 11.8. Echocardiogram is pending. Nursing to follow-up on interrogation of his pacemaker. [facility]ed [facility]. Patient's cooling machine operator was Dr. Loza and was seen on 02/20/2023 with the following diagnoses as problem list. Aortic stenosis, atrial fibrillation, AV block first-degree, bradycardia, congestive heart failure, coronary artery disease, hypertension, hypothyroidism, mitral regurgitation, obstructive sleep apnea, pulmonary embolism, sick sinus s yndrome. Also noted that it was discussed the patient would have an echocardiogram and this was not sent and the records or patient did not follow- up and have this done. He was started on Lasix on 02/20 as well as Toprol-XL 50 mg daily. Physical examination: Gen: This is an 88-year-old male resting in bed and appears to be comfortable and in no acute distress. No acute respiratory distress noted. VS: reviewed HEENT: Head is atraumatic, normocephalic. Pupils equal, round. Sclerae is anicteric. NECK: Supple. No JVD. LUNGS: Diminished to the bases bilat. No intercostal retractions. HEART: Regular rate and rhythm. No murmur. ABDOMEN: Soft No tenderness. EXTREMITIES: 2+ pedal edema with edema up into the thigh. No calf tenderness. NEUROLOGICAL: Patient is awake, alert and oriented x3. Assessment: Acute on chronic heart failure Chronic atrial fibrillation status post pacemaker Coronary artery disease with previous CABG in 2012 Hypothyroidism Thrombocytopenia Plan: Continue patient on IV Lasix 40 mg every 12 hours Monitor I&O, who daily weights, electrolytes and renal function Continue patient on aspirin 81 mg daily, atorvastatin 40 mg at bedtime, Toprol- XL 25 mg daily Obtain 2-D echocardiogram and Doppler study to assess cardiac structure and function Interrogate pacemaker, Medtronic Further recommendations to follow based upon clinical course Nurse practitioner note has been reviewed, I agree with documented findings and plan of care. Patient was seen and examined. Objective - Vital Signs Vital signs: Vital Signs Temp 97.7 F 04/22/23 07:33 Pulse 70 04/22/23 07:33 Resp 16 04/22/23 07:33 BP 137/81 04/22/23 07:33 Pulse Ox 99 04/22/23 07:33 FiO2 Intake & Output 04/21/23 04/22/23 04/22/23 18:59 06:59 18:59 Output Total 1999 Balance -1999 Weight 83.915 kg 54 kg Output: Urine 1999 Other: Voiding Method External Catheter - Labs CBC & Chem 7: 04/22/23 05:49 04/22/23 05:49 Labs: Abnormal Lab Results - Last 24 Hours (Table) 04/21/23 04/21/23 04/22/23 Range/Units 07:21 07:21 05:49 RBC 4.06 L 4.20 L (4.40-5.60) X 10*6/uL MCV 110.1 H 110.0 H (80.0-97.0) FL MCH 36.9 H 36.7 H (27.0-32.0) pg RDW 17.0 H 17.0 H (11.5-14.5) % Plt Count 135 L 138 L (140-440) X 10*3/uL Monocytes # 1.19 H (0.20-1.00) X 10*3/uL Macrocytosis (manual) 3+ A Anion Gap 16.10 H (4.00-12.00) mmol/L BUN/Creatinine Ratio 26.22 H (12.00-20.00) Ratio Vitamin B12 1130.0 H (200.0-944.0) pg/mL TSH 11.800 H (0.350-5.500) UIU/ML 04/22/23 Range/Units 05:49 RBC (4.40-5.60) X 10*6/uL MCV (80.0-97.0) FL MCH (27.0-32.0) pg RDW (11.5-14.5) % Plt Count (140-440) X 10*3/uL Monocytes # (0.20-1.00) X 10*3/uL Macrocytosis (manual) Anion Gap (4.00-12.00) mmol/L BUN/Creatinine Ratio 20.60 H (12.00-20.00) Ratio Vitamin B12 (200.0-944.0) pg/mL TSH (0.350-5.500) UIU/ML
--- NOTE | 2023-04-22 11:18 | CA ---
Transthoracic Echo Report Name: Lee Rodriguez Age: 88 Gender: M : 1935 Exam Date: 04/21/2023 14:57 Exam Location: [facility] Ht (in): 72 Wt (lb): 185 Ordering Physician: Benoit Hernandez MD Attending/Referring Phys: [employer] Room Supervisor Gareth Barlow Procedure CPT: Indications: chf Cardiac Hx: Technical Quality: Fair Contrast 1: Total Dose (mL): Contrast 2: Total Dose (mL): MEASUREMENTS (Male / Female) Normal Values 2D ECHO LV Diastolic Diameter PLAX 4.4 cm 4.2 - 5.9 / 3.9 - 5.3 cm LV Systolic Diameter PLAX 3.1 cm IVS Diastolic Thickness 0.9 cm 0.6 - 1.0 / 0.6 - 0.9 cm LVPW Diastolic Thickness 1.2 cm 0.6 - 1.0 / 0.6 - 0.9 cm LV Relative Wall Thickness 0.5 RV Internal Dim ED PLAX 3.8 cm LVOT Diameter 2.2 cm Aortic Root Diameter 2.9 cm LA Systolic Diameter LX 3.0 cm 3.0 - 4.0 / 2.7 - 3.8 cm LV Diastolic Volume MOD BP 50.2 cm??? 67 - 155 / 56 - 104 cm??? LV Systolic Volume MOD BP 21.1 cm??? 22 - 58 / 19 - 49 cm??? LV Ejection Fraction MOD BP 58.1 % >= 55 % LV Cardiac Index MOD BP 985.8 cm???/min???m??? LV Diastolic Volume MOD 4C 36.3 cm??? LV Systolic Volume MOD 4C 20.0 cm??? LV Ejection Fraction MOD 4C 44.9 % LV Cardiac Index MOD 4C 551.9 cm???/min???m??? LV Diastolic Length 4C 6.8 cm LV Systolic Length 4C 6.0 cm LV Diastolic Volume MOD 2C 67.7 cm??? LV Systolic Volume MOD 2C 21.4 cm??? LV Ejection Fraction MOD 2C 68.4 % LV Cardiac Index MOD 2C 1565.7 cm???/min???m??? LV Diastolic Length 2C 6.9 cm LV Systolic Length 2C 6.3 cm LA Volume 57.5 cm??? 18 - 58 / 22 - 52 cm??? LA Volume Index 27.8 cm???/m??? 16 - 28 cm???/m??? Ascending Aorta Diameter 2.7 cm DOPPLER AV Peak Velocity 262.0 cm/s AV Peak Gradient 27.5 mmHg AV Mean Velocity 187.4 cm/s AV Mean Gradient 16.3 mmHg AV Velocity Time Integral 57.1 cm LVOT Peak Velocity 67.9 cm/s LVOT Peak Gradient 1.8 mmHg LVOT Velocity Time Integral 13.2 cm LVOT Stroke Volume 52.5 cm??? LVOT Stroke Volume Index 25.5 ml/m??? LVOT Cardiac Index 1772.6 cm???/min???m??? AV Area Cont Eq vti 0.9 cm??? AV Area Cont Eq pk 1.0 cm??? MV Peak Velocity 164.2 cm/s MV Peak Gradient 10.8 mmHg MV Mean Velocity 75.2 cm/s MV Mean Gradient 3.1 mmHg MV Velocity Time Integral 29.1 cm MR Peak Velocity 395.3 cm/s MR Peak Gradient 62.5 mmHg Mitral E Point Velocity 147.7 cm/s Mitral A Point Velocity 35.3 cm/s Mitral E to A Ratio 4.2 MV Deceleration Time 155.4 ms MV E' Velocity 5.6 cm/s Mitral E to MV E' Ratio 26.4 TR Peak Velocity 300.9 cm/s TR Peak Gradient 36.2 mmHg Right Ventricular Systolic Press 46.2 mmHg PV Peak Velocity 123.4 cm/s PV Peak Gradient 6.1 mmHg FINDINGS Left Ventricle Normal LVsize and wall thickness. Normal global LV systolic function with EF around 55%. No obvious regional wall motion abnormality. Grade III diastolic dysfunction Right Ventricle Moderate right ventricular dilatation. RVSP= 46mmHg. Right Atrium Moderate right ventricular dilatation Left Atrium Moderate left atrial dilatation. Elevated left atrial filling pressures Mitral Valve Mild Mitral annulus calcification. [place] MR Aortic Valve At least moderate AV calcification. Aortic valve not well visualized. AV peak gradient= 27.5mmHg. Mean gradient= 16.3mmHg. Tricuspid Valve Structurally normal tricuspid valve. Moderate TR. Pulmonic Valve Pulmonic valve not well visualized. No pulmonic regurgitation. Pericardium Normal pericardium. Aorta Normal size aortic root and proximal ascending aorta. CONCLUSIONS Normal LVsize and wall thickness. No obvious regional wall motion abnormality. Normal global LV systolic function with EF around 55%. Grade III diastolic dysfunction. Moderate biatrial dilatation. Elevated RA and LA pressures Calcific aortic valve with midl , mean gradient 16 mmHg at index stroke volume of 25 cm/m??? (Low flow state) Dilated IVC Elevated RVSP at 46 mmHg Previewed by: Dr Geoffrey Edwards (Electronically Signed) Final Date: 22 April 2023 11:17
[2023-04-22] MEDS: SPIRONOLACTONE 25 MG TAB PO SCH (14:12)
[2023-04-22 16:06] VITALS: BMI 16.1
--- NOTE | 2023-04-22 18:51 | P.PN ---
Subjective Progress Note Date: 04/22/23 Hospital course: Patient is a very pleasant 88-year-old male with a past medical history of CAD status post CABG, ischemic cardiomyopathy with chronic congestive heart failure status post pacemaker placement. He presented to the emergency department on 04/20/23 secondary to chief complaint of shortness of breath and increased bilateral lower extremity edema. Patient reports he has recently moved to [place] from [place] and ran out of his diuretics 3 weeks ago. Patient underwent full evaluation in the emergency department. Vital signs upon arrival blood pressure 135/72, heart rate 73, respiratory rate 20, temp 97.8F, SpO2 of 99% on room air. EKG completed showing an intermittently ventricular paced rhythm at 72 bpm. Chest x-ray completed showing CHF with diffuse bilateral patchy pulmonary edema and small pleural effusions. Labs completed and reviewed. CBC showed macrocytosis with MCV of 112.9. Coagulation profile normal findings. BMP revealing prerenal azotemia with BUN of 20 and otherwise normal findings. Blood glucose was 90. Magnesium normal findings at 2.0. Liver profile showing elevated total bili of 1.5, AST of 62, and alkaline phosphatase of 218. Troponin 0.030 and proBNP 5120. Influenza A, influenza B, RSV, Covid PCR were all negative. Patient was admitted under services for CHF exacerbation with consultation to cardiology. Troponins trended overnight resulting at 0.030, 0.024, and 0.027. Physical exam: Vital signs reviewed and stable. General: Nontoxic, no distress and appears stated age. Derm: Skin warm and dry, normal coloration for ethnicity. Head: Atraumatic, normocephalic and symmetric. Eyes: EOMs intact, no lid lag, and anicteric sclera Mouth: no lip lesions, mucus membranes moist Cardiovascular: regular rate and rhythm with normal S1S2, systolic murmur, positive posterior tibial pulses bilaterally, and cap refill < 2 seconds. Lungs: Respirations even, regular, and unlabored on room air. Lungs diminished, no rhonchi, no rales, no wheezing, and no accessory muscle usage. Abdominal: soft, nontender to palpation, no guarding, no appreciable organomegaly Ext: ROM intact. No gross muscle atrophy, 2+ pitting bilateral lower extremity edema, no contractures Neuro: Speech clear, face symmetrical and CN II-XII grossly intact with no noted focal neuro deficits Psych: Alert and oriented to person, place, time, and situation. Appropriate and pleasant affect. Assessment and Plan of Care: Acute exacerbation of chronic heart failure unclear type pending echocardiogram History of CAD status post CABG History of ischemic cardiomyopathy with chronic heart failure status post pacemaker placement -Cardiology following -Telemetry monitoring -ProBNP 5120 -Daily weights -Close monitoring of I's and O's. Pt has documented urinary output of 2000 mL in the last 24 hours. -Cardiac diet -Lasix 40 mg IVP every 12 hours -Aspirin 81 mg daily, atorvastatin 40 mg nightly, and metoprolol 25 mg dailys. -Continued close monitoring of electrolytes while diuresing. Hypothyroidism -Continue [place] Thyroid 120 mg daily. -Order placed for TSH with free T4. Data and imaging reviewed: Vital signs reviewed. Blood pressure 137/82, heart rate 81, respiratory rate 18, temp 97.7F, SpO2 of 99% on 2 L O2 via nasal cannula. Daily labs reviewed. CBC showing macrocytosis with MCV of 110.0 and MCH of 36.7 along with thrombocytopenia with platelet count of 138. BMP unremarkable. Glucose 93. CODE STATUS: Full code DVT prophylaxis: Heparin Anticipated discharge date: Clinical course to determine Anticipated discharge place: Clinical course to determine Patient was seen independently by Nurse Pracitioner. This document was prepared using Delectable dictation software. Please allow for errors in pourer buggy ladle, while rare they do occur. Objective - Vital Signs Vital signs: Vital Signs Temp 97.5 F L 04/22/23 00:19 Pulse 65 04/22/23 00:19 Resp 18 04/22/23 00:19 BP 134/81 04/22/23 00:19 Pulse Ox 99 04/22/23 00:19 FiO2 Intake & Output 04/21/23 04/22/23 04/22/23 18:59 06:59 18:59 Output Total 1999 Balance -1999 Weight 83.915 kg 54 kg Output: Urine 1999 Other: Voiding Method External Catheter - Labs CBC & Chem 7: 04/22/23 05:49 04/22/23 05:49 Labs: Abnormal Lab Results - Last 24 Hours (Table) 04/21/23 04/21/23 Range/Units 07:21 07:21 RBC 4.06 L (4.40-5.60) X 10*6/uL MCV 110.1 H (80.0-97.0) FL MCH 36.9 H (27.0-32.0) pg RDW 17.0 H (11.5-14.5) % Plt Count 135 L (140-440) X 10*3/uL Monocytes # 1.19 H (0.20-1.00) X 10*3/uL Macrocytosis (manual) 3+ A Anion Gap 16.10 H (4.00-12.00) mmol/L BUN/Creatinine Ratio 26.22 H (12.00-20.00) Ratio Vitamin B12 1130.0 H (200.0-944.0) pg/mL TSH 11.800 H (0.350-5.500) UIU/ML
[2023-04-22] MEDS: ATORVASTATIN 40 MG TAB PO SCH (20:45)
[2023-04-23 08:30] VITALS: RESP 19
[2023-04-23] MEDS: METOPROLOL SUCCINATE (ER) 25 MG TAB.ER.24H PO SCH (08:51)
[2023-04-23] MEDS: SPIRONOLACTONE 25 MG TAB PO SCH (08:51)
[2023-04-23] MEDS: THYROID, PORK 30 MG TAB PO SCH (08:51)
[2023-04-23] MEDS: ASPIRIN 81 MG PO SCH (08:51)
[2023-04-23] MEDS: HEPARIN SODIUM,PORCINE 5,000 UNIT/ML 1 ML VIAL SQ SCH ×2 (08:52→20:40)
[2023-04-23] MEDS: FUROSEMIDE 10 MG/ML 4 ML VIAL IV SCH ×2 (08:52→20:40)
--- NOTE | 2023-04-23 10:05 | P.PN ---
Subjective Progress Note Date: 04/23/23 Consult reason: congestive heart failure History of present illness: History of present illness: This is an 88-year-old male patient recently moved from [place] with past medical history of pacemaker, chronic atrial fibrillation, congestive heart failure, status post CABG in 2012-details not available. We have been asked to see the patient for CHF. Patient states he moved to [place] 3 days ago to apartment with his and will be near his son. He states he ran out of lasix 2 weeks ago. He has chronic shortness of breath that has been going on for the past 6 months especially at nighttime but much worse over the past few days along with increased edema in his legs up to his thighs. He aslo complains of generalized pain in his legs from the edema. EKG pacemaker rhythm with intermittent atrial fibrillation Chest x-ray: CHF with diffuse bilateral patchy pulmonary edema. Small effusions. WBC 7.6, hemoglobin 15.9, platelet count 125. INR 1.1. Sodium 135, potassium 4.8, chloride 100, CO2 24, BUN 28 creatinine 0.91. Troponin negative 3. Magnesium 2.0. Blood sugar 90. Total bilirubin 1.5, AST 62, ALT 39, alkaline phosphatase 218. ProBNP 5120. Influenza A, influenza B, RSV, Covid 19 not detected Home cardiac medications: Only listed medication is [place] Thyroid. 04/22 Patient is seen today in follow-up on the [facility] floor. He continues to have some lower extremity edema and decreased breath sounds at the bases. He has b een maintained on IV Lasix 40 mg every 12 hours. He has documented urine output of 2000 mL's, weight does not appear accurate. Repeat blood work reveals hemoglobin 15.4. BUN 20 creatinine 1.0. TSH came back at 11.8. Echocardiogram is pending. Nursing to follow-up on interrogation of his pacemaker. Reviewed patient records from [facility]. Patient's oliving machine operator was Dr. Loza and was seen on 02/20/2023 with the following diagnoses as problem list. Aortic stenosis, atrial fibrillation, AV block first-degree, bradycardia, congestive heart failure, coronary artery disease, hypertension, hypothyroidism, mitral regurgitation, obstructive sleep apnea, pulmonary embolism, sick sinus s yndrome. Also noted that it was discussed the patient would have an echocardiogram and this was not sent and the records or patient did not follow- up and have this done. He was started on Lasix on 02/20 as well as Toprol-XL 50 mg daily. 04/23 Echocardiogram reveals EF of 55%, grade 3 diastolic dysfunction. Moderate biatrial dilation. Elevated RA and LA pressures. Calcified aortic valve with mild left ear, mean gradient 16 mmHg at the index stroke. Volume of 25 cm/asthma. Dilated IVC. Elevated RVSP of 46 mmHg. Yesterday, patient was continued on IV Lasix and Aldactone was added. Vital signs have been stable, blood pressure 138/78, heart rate 70, pulse ox 90% on 2 L. Patient currently denies having any shortness of breath. Interrogation of pacemaker is pending as this device is not Medtronic. Nursing will try to obtain manager photography name from his oliving machine operator in [place]. Physical examination: Gen: This is an 88-year-old male resting in bed and appears to be comfortable and in no acute distress. No acute respiratory distress noted. VS: reviewed HEENT: Head is atraumatic, normocephalic. Pupils equal, round. Sclerae is anicteric. NECK: Supple. No JVD. LUNGS: Diminished to the bases bilat. No intercostal retractions. HEART: Regular rate and rhythm. No murmur. ABDOMEN: Soft No tenderness. EXTREMITIES: 1+ pedal edema with edema. No calf tenderness. NEUROLOGICAL: Patient is awake, alert and oriented x3. Assessment: Acute on chronic diastolic heart failure Chronic atrial fibrillation status post pacemaker Coronary artery disease with previous CABG in 2012 Hypothyroidism Thrombocytopenia Plan: Continue patient on IV Lasix 40 mg every 12 hours Monitor I&O, who daily weights, electrolytes and renal function Continue patient on aspirin 81 mg daily, atorvastatin 40 mg at bedtime, Toprol- XL 25 mg daily, Aldactone 12.5 mg daily Start patient on losartan 25 mg daily Interrogate pacemaker Further recommendations to follow based upon clinical course Nurse practitioner note has been reviewed, I agree with documented findings and plan of care. Patient was seen and examined. Objective - Vital Signs Vital signs: Vital Signs Temp 97.6 F 04/23/23 07:12 Pulse 70 04/23/23 07:12 Resp 19 04/23/23 07:12 BP 138/78 04/23/23 07:12 Pulse Ox 98 04/23/23 07:12 FiO2 Intake & Output 1204/23/23 04/23/23 18:59 06:59 18:59 Output Total 1000 2200 Balance -1000 -2200 Weight 54 kg 86 kg Output: Urine 1000 2200 Other: Voiding Method External Catheter External Catheter # Bowel Movements 1 2 - Labs CBC & Chem 7: 04/22/23 05:49 04/22/23 05:49 Labs: Abnormal Lab Results - Last 24 Hours (Table) 04/22/23 04/22/23 Range/Units 05:49 05:49 RBC 4.20 L (4.40-5.60) X 10*6/uL MCV 110.0 H (80.0-97.0) FL MCH 36.7 H (27.0-32.0) pg RDW 17.0 H (11.5-14.5) % Plt Count 138 L (140-440) X 10*3/uL BUN/Creatinine Ratio 20.60 H (12.00-20.00) Ratio
--- NOTE | 2023-04-23 12:23 | P.PN ---
Subjective Progress Note Date: 04/23/23 Hospital course: Patient is a very pleasant 88-year-old male with a past medical history of CAD status post CABG, ischemic cardiomyopathy with chronic congestive heart failure status post pacemaker placement. He presented to the emergency department on 04/20/23 secondary to chief complaint of shortness of breath and increased bilateral lower extremity edema. Patient reports he has recently moved to [place] from [place] and ran out of his diuretics 3 weeks ago. Patient underwent full evaluation in the emergency department. Vital signs upon arrival blood pressure 135/72, heart rate 73, respiratory rate 20, temp 97.8F, SpO2 of 99% on room air. EKG completed showing an intermittently ventricular paced rhythm at 72 bpm. Chest x-ray completed showing CHF with diffuse bilateral patchy pulmonary edema and small pleural effusions. Labs completed and reviewed. CBC showed macrocytosis with MCV of 112.9. Coagulation profile normal findings. BMP revealing prerenal azotemia with BUN of 20 and otherwise normal findings. Blood glucose was 90. Magnesium normal findings at 2.0. Liver profile showing elevated total bili of 1.5, AST of 62, and alkaline phosphatase of 218. Troponin 0.030 and proBNP 5120. Influenza A, influenza B, RSV, Covid PCR were all negative. Patient was admitted under services for CHF exacerbation with consultation to cardiology. Troponins trended overnight resulting at 0.030, 0.024, and 0.027. Currently on IV Lasix. Echocardiogram showed LVEF of around 55%, grade 3 diastolic dysfunction, RVSP 46, calcified aortic valve with mild Patient seen and examined at bedside. No acute events overnight. Continues to have orthopnea. Slightly improved with lower extremity swelling. Physical exam: Vital signs reviewed and stable. General: Nontoxic, no distress and appears stated age. Derm: Skin warm and dry, normal coloration for ethnicity. Head: Atraumatic, normocephalic and symmetric. Eyes: EOMs intact, no lid lag, and anicteric sclera Mouth: no lip lesions, mucus membranes moist Cardiovascular: regular rate and rhythm with normal S1S2, systolic murmur, positive posterior tibial pulses bilaterally, and cap refill < 2 seconds. Lungs: Bilateral rales, no wheezing, and no accessory muscle usage. , Supplemental oxygen Abdominal: soft, nontender to palpation, no guarding, no appreciable organomegaly Ext: ROM intact. No gross muscle atrophy, 2+ pitting bilateral lower extremity edema, no contractures Neuro: Speech clear, face symmetrical and CN II-XII grossly intact with no noted focal neuro deficits Psych: Alert and oriented to person, place, time, and situation. Appropriate and pleasant affect. Assessment and Plan of Care: Acute exacerbation of chronic diastolic heart failure History of CAD status post CABG History of ischemic cardiomyopathy with chronic heart failure status post pacemaker placement -Cardiology note reviewed, started on losartan 25 mg daily, interrogate pacemaker -Telemetry monitoring -Daily weights -Lasix 40 mg IVP every 12 hours, monitor renal function and electrolytes -Aspirin 81 mg daily, atorvastatin 40 mg nightly, and metoprolol 25 mg dailys. -Also on Aldactone 12.5 daily Hypothyroidism -Continue [place] Thyroid, increased to 135 mg daily -Repeat TSH in 6 weeks Data and imaging reviewed: TSH 11.8, free T4 0.9 Echocardiogram showed LVEF 55%, grade 3 diastolic dysfunction BMP and magnesium pending, will be reviewed when available CODE STATUS: Full code DVT prophylaxis: Heparin Anticipated discharge date: Clinical course to determine Anticipated discharge place: Clinical course to determine Objective - Vital Signs Vital signs: Vital Signs Temp 97.6 F 04/23/23 07:12 Pulse 70 04/23/23 07:12 Resp 19 04/23/23 07:12 BP 138/78 04/23/23 07:12 Pulse Ox 98 04/23/23 07:12 FiO2 Intake & Output 04/22/23 04/23/23 04/23/23 18:59 06:59 18:59 Output Total 1000 2200 Balance -1000 -2200 Weight 54 kg 86 kg Output: Urine 1000 2200 Other: Voiding Method External Catheter External Catheter # Bowel Movements 1 2 - Labs CBC & Chem 7: 04/22/23 05:49 04/22/23 05:49
[2023-04-23] MEDS: LOSARTAN 25 MG TAB PO SCH (12:34)
[2023-04-23] MEDS: TAMSULOSIN 0.4 MG CAP.ER.24H PO SCH (12:34)
[2023-04-23 14:40] LABS: African American GFR (CKD) >90 (>60 ml/min/1.73 sqM); Anion Gap 9 mmol/L; Blood Urea Nitrogen 24 mg/dL (9-20); Calcium 8.9 mg/dL (8.4-10.2); Carbon Dioxide 35 mmol/L (22-30); Chloride 90 mmol/L (98-107); Glucose 103 mg/dL (74-99); Magnesium 1.7 mg/dL (1.6-2.3); Non-African American GFR(CKD) 81 (>60 ml/min/1.73 sqM); Potassium 4.4 mmol/L (3.5-5.1); Sodium 134 mmol/L (137-145)
[2023-04-23] MEDS: ATORVASTATIN 40 MG TAB PO SCH (20:41)
[2023-04-24] MEDS: HEPARIN SODIUM,PORCINE 5,000 UNIT/ML 1 ML VIAL SQ SCH (08:36)
[2023-04-24] MEDS: LOSARTAN 25 MG TAB PO SCH (08:36)
[2023-04-24] MEDS: SPIRONOLACTONE 25 MG TAB PO SCH (08:36)
[2023-04-24] MEDS: ASPIRIN 81 MG PO SCH (08:36)
[2023-04-24] MEDS: TAMSULOSIN 0.4 MG CAP.ER.24H PO SCH (08:36)
[2023-04-24] MEDS: METOPROLOL SUCCINATE (ER) 25 MG TAB.ER.24H PO SCH (08:36)
[2023-04-24] MEDS ORDERED: THYROID, PORK 30 MG TAB PO SCH (09:00)
[2023-04-24] MEDS: FUROSEMIDE 10 MG/ML 4 ML VIAL IV SCH ×2 (09:50→11:00)
--- NOTE | 2023-04-24 09:53 | P.PN ---
Subjective Progress Note Date: 04/24/23 Consult reason: congestive heart failure History of present illness: History of present illness: This is an 88-year-old male patient recently moved from [place] with past medical history of pacemaker, chronic atrial fibrillation, congestive heart failure, status post CABG in 2012-details not available. We have been asked to see the patient for CHF. Patient states he moved to [place] 3 days ago to apartment with his and will be near his son. He states he ran out of lasix 2 weeks ago. He has chronic shortness of breath that has been going on for the past 6 months especially at nighttime but much worse over the past few days along with increased edema in his legs up to his thighs. He aslo complains of generalized pain in his legs from the edema. EKG pacemaker rhythm with intermittent atrial fibrillation Chest x-ray: CHF with diffuse bilateral patchy pulmonary edema. Small effusions. WBC 7.6, hemoglobin 15.9, platelet count 125. INR 1.1. Sodium 135, potassium 4.8, chloride 100, CO2 24, BUN 28 creatinine 0.91. Troponin negative 3. Magnesium 2.0. Blood sugar 90. Total bilirubin 1.5, AST 62, ALT 39, alkaline phosphatase 218. ProBNP 5120. Influenza A, influenza B, RSV, Covid 19 not detected Home cardiac medications: Only listed medication is [place] Thyroid. 04/22 Patient is seen today in follow-up on the [facility] floor. He continues to have some lower extremity edema and decreased breath sounds at the bases. He has b een maintained on IV Lasix 40 mg every 12 hours. He has documented urine output of 2000 mL's, weight does not appear accurate. Repeat blood work reveals hemoglobin 15.4. BUN 20 creatinine 1.0. TSH came back at 11.8. Echocardiogram is pending. Nursing to follow-up on interrogation of his pacemaker. Reviewed patient records from [facility]. Patient's program supervisor was Dr. Loza and was seen on 02/20/2023 with the following diagnoses as problem list. Aortic stenosis, atrial fibrillation, AV block first-degree, bradycardia, congestive heart failure, coronary artery disease, hypertension, hypothyroidism, mitral regurgitation, obstructive sleep apnea, pulmonary embolism, sick sinus s yndrome. Also noted that it was discussed the patient would have an echocardiogram and this was not sent and the records or patient did not follow- up and have this done. He was started on Lasix on 02/20 as well as Toprol-XL 50 mg daily. 04/23 Echocardiogram reveals EF of 55%, grade 3 diastolic dysfunction. Moderate biatrial dilation. Elevated RA and LA pressures. Calcified aortic valve with mild left ear, mean gradient 16 mmHg at the index stroke. Volume of 25 cm/asthma. Dilated IVC. Elevated RVSP of 46 mmHg. Yesterday, patient was continued on IV Lasix and Aldactone was added. Vital signs have been stable, blood pressure 138/78, heart rate 70, pulse ox 90% on 2 L. Patient currently denies having any shortness of breath. Interrogation of pacemaker is pending as this device is not Medtronic. Nursing will try to obtain hearing instrument specialist name from his program supervisor in [place]. 04/24 Patient's vital signs have been stable with the addition of new medications. He seems to be tolerating well. He has less lower extremity edema. He denies any shortness of breath. He has been afebrile. Physical examination: Gen: This is an 88-year-old male resting in bed and appears to be comfortable and in no acute distress. No acute respiratory distress noted. VS: reviewed HEENT: Head is atraumatic, normocephalic. Pupils equal, round. Sclerae is anicteric. NECK: Supple. No JVD. LUNGS: Diminished to the bases bilat. No intercostal retractions. HEART: Regular rate and rhythm. No murmur. ABDOMEN: Soft No tenderness. EXTREMITIES: Minimal pedal edema. No calf tenderness. NEUROLOGICAL: Patient is awake, alert and oriented x3. Assessment: Acute on chronic diastolic heart failure Chronic atrial fibrillation status post pacemaker Coronary artery disease with previous CABG in 2012 Hypothyroidism Thrombocytopenia Grade 3 diastolic dysfunction Mild aortic stenosis Plan: Transition IV Lasix to Bumex 1 mg daily Continue current cardiac medications Interrogate pacemaker Patient is cleared for discharge following interrogation of pacemaker Patient will follow up with Dr. Edwards in 1 week. Nurse practitioner note has been reviewed, I agree with documented findings and plan of care. Patient was seen and examined. Objective - Vital Signs Vital signs: Vital Signs Temp 97.5 F L 04/24/23 07:09 Pulse 66 04/24/23 07:09 Resp 19 04/24/23 07:09 BP 104/69 04/24/23 07:09 Pulse Ox 100 04/24/23 07:09 FiO2 Intake & Output 04/23/23 04/24/23 04/24/23 18:59 06:59 18:59 Output Total 1080 Balance -1080 Weight 86 kg Output: Urine 1080 Other: Voiding Method External Catheter # Bowel Movements 1 - Labs CBC & Chem 7: 04/22/23 05:49 04/23/23 13:51 Labs: Abnormal Lab Results - Last 24 Hours (Table) 04/23/23 Range/Units 13:51 Sodium 134 L (137-145) mmol/L Chloride 90 L (98-107) mmol/L Carbon Dioxide 35 H (22-30) mmol/L BUN 24 H (9-20) mg/dL Glucose 103 H (74-99) mg/dL
--- NOTE | 2023-04-24 11:08 | P.DS ---
Providers Date of admission: 04/20/23 18:24 Expected date of discharge: 04/24/23 Attending physician: Bernie Rodriguez DO Consults: 04/20/23 18:24 Consult Physician Routine Consulting Provider: [facility] Consult Reason/Comments: chf Do you want consulting provider notified?: Yes Primary care physician: Stated None Hospital Course: Discharge Diagnosis: Acute exacerbation of chronic diastolic heart failure History of CAD status post CABG History of ischemic cardiomyopathy with chronic heart failure status post pacemaker placement Hypothyroidism Macrocytosis Chronic hypoxic respiratory failure on 2 L Hospital Course: Patient is a very pleasant 88-year-old male with a past medical history of CAD status post CABG, ischemic cardiomyopathy with chronic congestive heart failure status post pacemaker placement, chronic hypoxic respiratory failure on 2 L. He presented to the emergency department on 04/20/23 secondary to chief complaint of shortness of breath and increased bilateral lower extremity edema. Patient reports he has recently moved to [place] from [place] and ran out of his diuretics 3 weeks ago. Patient underwent full evaluation in the emergency department. Vital signs upon arrival blood pressure 135/72, heart rate 73, respiratory rate 20, temp 97.8F, SpO2 of 99% on room air. EKG completed showing an intermittently ventricular paced rhythm at 72 bpm. Chest x-ray completed showing CHF with diffuse bilateral patchy pulmonary edema and small pleural effusions. Labs completed and reviewed. CBC showed macrocytosis with MCV of 112.9. Coagulation profile normal findings. BMP revealing prerenal azotemia with BUN of 20 and otherwise normal findings. Blood glucose was 90. Magnesium normal findings at 2.0. Liver profile showing elevated total bili of 1.5, AST of 62, and alkaline phosphatase of 218. Troponin 0.030 and proBNP 5120. Influenza A, influenza B, RSV, Covid PCR were all negative. Patient was admitted under services for CHF exacerbation with consultation to cardiology. Troponins trended overnight resulting at 0.030, 0.024, and 0.027. He was on IV Lasix. Echocardiogram showed LVEF of around 55%, grade 3 diastolic dysfunction, RVSP 46, calcified aortic valve with mild . Additional hypertension medications added. Patient being discharged home with oral Bumex. [place] Thyroid also increased due to TSH being 11.8. Repeat TSH in 4-6 weeks. Patient also has macrocytosis, likely related to hypothyroidism. Will have evaluation by hematology outpatient as well. He will also follow-up with cardiology outpatient. Patient seen and examined at bedside. Vital signs reviewed and stable. General: nontoxic, no distress, appears at stated age Derm: warm, dry Head: atraumatic, normocephalic, symmetric Eyes: EOMI, no lid lag, anicteric sclera Mouth: no lip lesion, mucus membranes moist Cardiovascular: S1S2 reg, systolic murmur Lungs: Bibasilar rales , no accessory muscle use, supplemental oxygen Abdominal: soft, nontender to palpation, no guarding, no appreciable organomegaly Ext: no gross muscle atrophy, 2+ pitting edema, no contractures Neuro: CN II-XI grossly intact, no focal neuro deficits Psych: Alert, oriented, appropriate affect A total of 33 minutes of time were spent preparing this complex discharge summary. Patient was discharged on 04/24/23 at 1037. Patient Condition at Discharge: Stable Plan - Discharge Summary Discharge Rx Participant: No New Discharge Prescriptions: New Thyroid, Pork [[place] Thyroid] 135 mg PO DAILY #30 tab Bumetanide [BUMEX] 1 mg PO DAILY #90 tab Spironolactone [Aldactone] 12.5 mg PO DAILY #90 tab Aspirin 81 mg PO DAILY #90 tab Losartan [Cozaar] 25 mg PO DAILY #90 tab Tamsulosin [Flomax] 0.4 mg PO PC-BRKFST #30 cap Atorvastatin [Lipitor] 40 mg PO HS #90 tab Metoprolol Succinate (ER) [Toprol XL] 25 mg PO DAILY #90 tab Discontinued Thyroid,Pork [[place] Thyroid] 120 mg PO DAILY Discharge Medication List Aspirin 81 mg PO DAILY #90 tab 04/24/23 [Rx] Atorvastatin [Lipitor] 40 mg PO HS #90 tab 04/24/23 [Rx] Bumetanide [BUMEX] 1 mg PO DAILY #90 tab 04/24/23 [Rx] Losartan [Cozaar] 25 mg PO DAILY #90 tab 04/24/23 [Rx] Metoprolol Succinate (ER) [Toprol XL] 25 mg PO DAILY #90 tab 04/24/23 [Rx] Spironolactone [Aldactone] 12.5 mg PO DAILY #90 tab 04/24/23 [Rx] Tamsulosin [Flomax] 0.4 mg PO PC-BRKFST #30 cap 04/24/23 [Rx] Thyroid, Pork [[place] Thyroid] 135 mg PO DAILY #30 tab 04/24/23 [Rx] Follow up Appointment(s)/Referral(s): Geoffrey Edwards MD [Medical Doctor] - 1 Week Cooper Do [STAFF PHYSICIAN] - 2 Weeks (work up for MDS) None,Stated [Primary Care Provider] - 1-2 days Patient Instructions/Handouts: Heart Failure (DC), Hypothyroidism (DC) Activity/Diet/Wound Care/Special Instructions: Please see your mattress inspector, auto cleaner and PCP. You will need repeat thyroid function test in 4-6 weeks. Discharge Disposition: HOME SELF-CARE
[2023-04-24 11:25] LABS: African American GFR (CKD) >90 (>60 ml/min/1.73 sqM); Anion Gap 7 mmol/L; Blood Urea Nitrogen 29 mg/dL (9-20); Calcium 8.9 mg/dL (8.4-10.2); Carbon Dioxide 37 mmol/L (22-30); Chloride 90 mmol/L (98-107); Glucose 100 mg/dL (74-99); Magnesium 1.8 mg/dL (1.6-2.3); Non-African American GFR(CKD) 80 (>60 ml/min/1.73 sqM); Potassium 4.5 mmol/L (3.5-5.1); Sodium 134 mmol/L (137-145)
[2023-04-24 13:27] VITALS: BP 110/68; PULSE 69; TEMP 97.9
[2023-04-25] MEDS ORDERED: BUMETANIDE 1 MG TAB PO SCH (09:00)
== END 2023-04-24 16:57 | disposition home or self-care (01) | DRG 291 ==
LOC: EC 16:00 → 6NMEDSUR 18:23 → OBSVTOIN 18:24 → 6NMEDSUR 20:08 → 4SSUR 04-21 20:10
PROVIDERS: ADMIT Internal Medicine; ATTEND Internal Medicine
DX: I11.0 Hypertensive heart disease with heart failure (principal); I50.33 Acute on chronic diastolic (congestive) heart failure; J96.11 Chronic respiratory failure with hypoxia; D69.6 Thrombocytopenia, unspecified; I49.5 Sick sinus syndrome; Z28.310 Unvaccinated for COVID-19; I25.10 Atherosclerotic heart disease of native coronary artery without angina pectoris; I08.0 Rheumatic disorders of both mitral and aortic valves; I25.5 Ischemic cardiomyopathy; E03.9 Hypothyroidism, unspecified; G47.33 Obstructive sleep apnea (adult) (pediatric); I44.30 Unspecified atrioventricular block; D75.89 Other specified diseases of blood and blood-forming organs; Z79.890 Hormone replacement therapy; Z79.899 Other long term (current) drug therapy; Z95.1 Presence of aortocoronary bypass graft; Z86.711 Personal history of pulmonary embolism; Z95.0 Presence of cardiac pacemaker
CPT/HCPCS: 36415; 51702; 71046; 76705; 80048; 80053; 82607; 82747; 83735; 83880; 84439; 84443; 84484; 85025; 85027; 85610; 85730; 87636; 93005; 93306; 94760; 96372; 96374; 96376; 99285

== ENCOUNTER 2023-06-25 12:31 | Inpatient (IN) | payer MEDICARE, OTHER ==
--- NOTE | 2023-06-25 13:41 | XR ---
EXAMINATION TYPE: XR chest 2V DATE OF EXAM: 06/25/2023 COMPARISON: NONE HISTORY: Weakness, cough and congestion. TECHNIQUE: Frontal and lateral views of the chest are obtained. IMPRESSION: The cardiac silhouette is moderately enlarged with mild diffuse interstitial changes throughout the l ungs bilaterally which is likely related to mild edema. More focal opacity in the left upper lobe is new since the previous examination and could represent a developing pneumonia with an underlying mass not excluded and follow to resolution is recommended. Left-sided pacemaker generator and midline sternotomy wires are unchanged.
[2023-06-25] MEDS: SODIUM CHLORIDE 0.9% 1,000 ML IV STA (15:50)
[2023-06-25] MEDS: SODIUM CHLORIDE 0.9% 500 ML 500 ML IV STA (15:51)
[2023-06-25 16:12] LABS: Basophils # (A) 0.1 k/uL (0-0.2); Basophils % (A) 1 %; Eosinophils % (A) 1 %; HCT 52.4 % (39.0-53.0); HGB 17.3 gm/dL (13.0-17.5); Lymphocytes # (A) 1.9 k/uL (1.0-4.8); Lymphocytes % (A) 25 %; MCHC 33.1 g/dL (31.0-37.0); MCV 108.8 fL (80.0-100.0); Macrocytosis Moderate; Monocytes # (A) 0.7 k/uL (0-1.0); Monocytes % (A) 9 %; Neutrophils # (A) 4.8 k/uL (1.3-7.7); Neutrophils % (A) 64 %; RBC 4.82 m/uL (4.30-5.90); RDW 12.7 % (11.5-15.5); WBC 7.5 k/uL (3.8-10.6)
[2023-06-25 16:16] LABS: Appearance,Urine Clear (Clear); Bacteria,Urine Rare /hpf; Bilirubin,Urine Negative (Negative); Blood,Urine Negative (Negative); Color,Urine Yellow; Glucose,Urine (UA) Negative (Negative); Hyaline Casts,Urine 9 /lpf (0-2); Ketones,Urine Negative (Negative); Leukocyte Esterase,Urine Negative (Negative); Mucus,Urine Few /hpf; Nitrite,Urine Negative (Negative); Protein,Urine 1+ (Negative); Specific Gravity,Urine 1.016 (1.001-1.035); Squamous Epithelial Cell,Urine <1 /hpf (0-4); Urobilinogen,Urine <2.0 mg/dL (<2.0); WBC,Urine 3 /hpf (0-5)
[2023-06-25 16:20] LABS: Platelet Count 316 k/uL (150-450)
[2023-06-25 17:01] LABS: ALT 47 U/L (4-49); AST 75 U/L (17-59); African American GFR (CKD) 82 (>60 ml/min/1.73 sqM); Albumin 3.6 g/dL (3.5-5.0); Alkaline Phosphatase 288 U/L (38-126); Anion Gap 8 mmol/L; Blood Urea Nitrogen 32 mg/dL (9-20); Calcium 9.7 mg/dL (8.4-10.2); Carbon Dioxide 27 mmol/L (22-30); Chloride 102 mmol/L (98-107); Glucose 97 mg/dL (74-99); Magnesium 2.3 mg/dL (1.6-2.3); Non-African American GFR(CKD) 71 (>60 ml/min/1.73 sqM); Potassium 5.9 mmol/L (3.5-5.1); Sodium 137 mmol/L (137-145); Total Bilirubin 1.3 mg/dL (0.2-1.3); Total Protein 7.5 g/dL (6.3-8.2)
[2023-06-25 17:10] LABS: NT-Pro-B-Type Natriuretic Pept 2620 pg/mL
--- NOTE | 2023-06-25 18:12 | ED ---
General Adult HPI - General Chief complaint: Upper Respiratory Infection Stated complaint: Weakness,Diaherra, hx of CHF Time Seen by Provider: 06/25/23 13:00 Source: patient Mode of arrival: ambulatory Limitations: no limitations - History of Present Illness Initial comments: 88-year-old male presents the emergency department with weakness, diarrhea and cough. His son is at bedside and helps provide the history. The patient has had symptoms all week. They went into an urgent care and was told that they needed to go to the hospital of the patient's symptoms continued. He did test positive for influenza A. Son states that the patient has had a poor appetite. He has had several episodes of loose watery stool per day. Denies any black or bloody stool. They deny any current fevers. The patient's has also been sick however her symptoms seem to have improved. The patient denies any belly pain. No chest pain. No difficulty breathing. No lateralizing weakness. No other alleviating, precipitating or modifying factors - Related Data Home Medications Medication Instructions Recorded Confirmed Adthyza 130mg 130 mg PO DAILY 06/25/23 06/26/23 Dabigatran Etexilate Mesylate 150 mg PO DIRECTED 06/25/23 06/25/23 [Dabigatran Etexilate] cefUROXime axetiL [Ceftin] 500 mg PO BID 06/25/23 06/25/23 Previous Rx's Medication Instructions Recorded Aspirin 81 mg PO DAILY #90 tab 04/24/23 Atorvastatin [Lipitor] 40 mg PO HS #90 tab 04/24/23 Bumetanide [BUMEX] 1 mg PO DAILY #90 tab 04/24/23 Losartan [Cozaar] 25 mg PO DAILY #90 tab 04/24/23 Metoprolol Succinate (ER) [Toprol 25 mg PO DAILY #90 tab 04/24/23 XL] Spironolactone [Aldactone] 12.5 mg PO DAILY #90 tab 04/24/23 Tamsulosin [Flomax] 0.4 mg PO PC-BRKFST #30 cap 04/24/23 Allergies Allergy/AdvReac Type Severity Reaction Status Date / Time No Known Allergies Allergy Verified 06/25/23 22:19 Review of Systems ROS Statement: Those systems with pertinent positive or pertinent negative responses have been documented in the HPI. ROS Other: All systems not noted in ROS Statement are negative. Past Medical History Past Medical History: Coronary Artery Disease (CAD), Heart Failure History of Any Multi-Drug Resistant Organisms: None Reported Past Surgical History: Appendectomy, Coronary Bypass/CABG, Pacemaker Additional Past Surgical History / Comment(s): rt hip surgery 1986 Past Anesthesia/Blood Transfusion Reactions: No Reported Reaction Past Psychological History: No Psychological Hx Reported Smoking Status: Never smoker Past Alcohol Use History: None Reported Past Drug Use History: None Reported General Exam Limitations: no limitations General appearance: alert, in no apparent distress Head exam: Present: atraumatic, normocephalic, normal inspection Eye exam: Present: normal appearance, PERRL, EOMI. Absent: scleral icterus, conjunctival injection, periorbital swelling ENT exam: Present: normal exam, mucous membranes moist Neck exam: Present: normal inspection. Absent: tenderness, meningismus, lymphadenopathy Respiratory exam: Present: normal lung sounds bilaterally. Absent: respiratory distress, wheezes, rales, rhonchi, stridor Cardiovascular Exam: Present: normal rhythm, bradycardia, normal heart sounds. Absent: systolic murmur, diastolic murmur, rubs, gallop, clicks GI/Abdominal exam: Present: soft, normal bowel sounds. Absent: distended, tenderness, guarding, rebound, rigid Extremities exam: Present: normal inspection, full ROM, normal capillary refill. Absent: tenderness, pedal edema, joint swelling, calf tenderness Back exam: Present: normal inspection Neurological exam: Present: alert, oriented X3, CN II-XII intact Psychiatric exam: Present: normal affect, normal mood Skin exam: Present: warm, dry, intact, normal color. Absent: rash Course Vital Signs 06/25/23 06/25/23 06/25/23 12:58 15:01 18:44 Temperature 97.3 F L Pulse Rate 47 L 72 70 Pulse Rate [ Pulse Oximetery ] Respiratory 18 20 18 Rate Blood Pressure 98/65 109/72 107/67 Blood Pressure [Right Arm] O2 Sat by Pulse 100 96 99 Oximetry 06/25/23 22:03 Temperature 97.9 F Pulse Rate Pulse Rate [ 69 Pulse Oximetery ] Respiratory 18 Rate Blood Pressure Blood Pressure 116/72 [Right Arm] O2 Sat by Pulse 94 L Oximetry Medical Decision Making - Medical Decision Making Was pt. sent in by a medical professional or institution (Dr., PA, CLOTH EXAMINER, urgent care, hospital, or care home...) When possible be specific @ -No Did you speak to anyone other than the patient for history (EMS, parent, family, police, friend...)? What history was obtained from this source @ -Spoke with the patient's son Did you review nursing and triage notes (agree or disagree)? Why? @ -I reviewed and agree with nursing and triage notes Were old charts reviewed (outside hosp., previous admission, EMS record, old EKG , old radiological studies, urgent care reports/EKG's, care home records)? Report findings @ -No old charts were reviewed Differential Diagnosis (chest pain, altered mental status, abdominal pain women, abdominal pain men, vaginal bleeding, weakness, fever, dyspnea, syncope, headache, dizziness, GI bleed, back pain, seizure, CVA, palpatations, mental health, musculoskeletal)? @ -Differential Weakness: Hypoglycemia, shock, sepsis, hyponatremia, anemia, infection, ME, ETOH, adverse medicine reaction, overdose, stroke, this is not meant to be an all-inclusive list. EKG interpreted by me (3pts min.). @ -Yes and demonstrates an electronic pacemaker with a rate of 70. QRS 169. QTc of 493. Pacemaker captures appropriately. No acute ST segment elevation X-rays interpreted by me (1pt min.). @ -Yes and demonstrates possible pneumonia CT interpreted by me (1pt min.). @ -None done U/S interpreted by me (1pt. min.). @ -None done What testing was considered but not performed or refused? (CT, X-rays, U/S, labs)? Why? @ -None What meds were considered but not given or refused? Why? @ -None Did you discuss the management of the patient with other professionals (professionals i.e. , PA, CLOTH EXAMINER, lab, RT, psych nurse, social sciences chair, family manager, teacher, navigating officer, major case detective)? Give summary @ -Spoke with Dr. Orr who will admit the patient Was smoking cessation discussed for >3mins.? @ -No Was critical care preformed (if so, how long)? @ -No Were there social determinants of health that impacted care today? How? (Homelessness, low income, unemployed, alcoholism, drug addiction, transportation, low edu. Level, literacy, decrease access to med. care, detention, rehab)? @ -No Was there de-escalation of care discussed even if they declined (Discuss DNR or withdrawal of care, Hospice)? DNR status @ -No What co-morbidities impacted this encounter? (DM, HTN, Smoking, COPD, CAD, Cancer, CVA, ARF, Chemo, Hep., AIDS, mental health diagnosis, sleep apnea, morbid obesity)? @ -None Was patient admitted / discharged? Hospital course, mention meds given and route, prescriptions, significant lab abnormalities, going to OR and other pertinent info. @ -Upon arrival patient was placed into room 31. Thorough history and physical exam was performed. Twelve-lead EKG was obtained. Laboratory studies are conducted. Patient did receive a 500 cc bolus of normal saline followed by 75 cc/h. Chest x-ray was performed which demonstrates possible pneumonia. Due to patient's weakness with recent influenza infection and now possible lobar pneumonia I do feel that the patient will require admission. He was agreeable to this. Spoke with Dr. Orr who agreed to admit the patient. Patient no longer testing positive for influenza at this time Undiagnosed new problem with uncertain prognosis? @ -Yes Drug Therapy requiring intensive monitoring for toxicity (Heparin, Nitro, Insulin, Cardizem)? @ -No Were any procedures done? @ -No Diagnosis/symptom? @ -Acute diarrhea, acute pneumonia, recent influenza A infection Acute, or Chronic, or Acute on Chronic? @ -Acute Uncomplicated (without systemic symptoms) or Complicated (systemic symptoms)? @ -Complicated Side effects of treatment? @ -No Exacerbation, Progression, or Severe Exacerbation? @ -No Poses a threat to life or bodily function? How? (Chest pain, USA, ME, pneumonia, PE, COPD, DKA, ARF, appy, cholecystitis, CVA, Diverticulitis, Homicidal, Suicidal, threat to staff... and all critical care pts) @ -No - Lab Data Result diagrams: 06/26/23 06:01 06/26/23 06:01 Lab Results 06/25/23 06/25/23 06/25/23 Range/Units 15:05 15:23 15:23 WBC 7.5 (3.8-10.6) k/uL RBC 4.82 (4.30-5.90) m/uL Hgb 17.3 (13.0-17.5) gm/dL Hct 52.4 (39.0-53.0) % MCV 108.8 H (80.0-100.0) fL MCH 36.0 H (25.0-35.0) pg MCHC 33.1 (31.0-37.0) g/dL RDW 12.7 (11.5-15.5) % Plt Count 316 D (150-450) k/uL MPV 10.0 Neutrophils % 64 % Lymphocytes % 25 % Monocytes % 9 % Eosinophils % 1 % Basophils % 1 % Neutrophils # 4.8 (1.3-7.7) k/uL Lymphocytes # 1.9 (1.0-4.8) k/uL Monocytes # 0.7 (0-1.0) k/uL Eosinophils # 0.0 (0-0.7) k/uL Basophils # 0.1 (0-0.2) k/uL Macrocytosis Moderate Sodium (137-145) mmol/L Potassium (3.5-5.1) mmol/L Chloride (98-107) mmol/L Carbon Dioxide (22-30) mmol/L Anion Gap mmol/L BUN (9-20) mg/dL Creatinine (0.66-1.25) mg/dL Est GFR (CKD-EPI)AfAm (>60 ml/min/1.73 sqM) Est GFR (CKD-EPI)NonAf (>60 ml/min/1.73 sqM) Glucose (74-99) mg/dL Plasma Lactic Acid Trevor (0.7-2.0) mmol/L Calcium (8.4-10.2) mg/dL Magnesium (1.6-2.3) mg/dL Total Bilirubin (0.2-1.3) mg/dL AST (17-59) U/L ALT (4-49) U/L Alkaline Phosphatase (38-126) U/L Troponin I (0.000-0.034) ng/mL NT-Pro-B Natriuret Pep pg/mL Total Protein (6.3-8.2) g/dL Albumin (3.5-5.0) g/dL Procalcitonin (0.02-0.09) ng/mL TSH (0.465-4.680) mIU/L Free T4 (0.78-2.19) ng/dL Urine Color Yellow Urine Appearance Clear (Clear) Urine pH 5.0 (5.0-8.0) Ur Specific [place] 1.016 (1.001-1.035) Urine Protein 1+ H (Negative) Urine Glucose (UA) Negative (Negative) Urine Ketones Negative (Negative) Urine Blood Negative (Negative) Urine Nitrite Negative (Negative) Urine Bilirubin Negative (Negative) Urine Urobilinogen <2.0 (<2.0) mg/dL Ur Leukocyte Esterase Negative (Negative) Urine WBC 3 (0-5) /hpf Ur Squamous Epith Cells <1 (0-4) /hpf Urine Bacteria Rare H (None) /hpf Hyaline Casts 9 H (0-2) /lpf Urine Mucus Few H (None) /hpf Influenza Type A (PCR) Not Detected (Not Detectd) Influenza Type B (PCR) Not Detected (Not Detectd) RSV (PCR) Not Detected (Not Detectd) SARS-CoV-2 (PCR) Not Detected (Not Detectd) 06/25/23 06/25/23 06/25/23 Range/Units 15:23 15:23 15:23 WBC (3.8-10.6) k/uL RBC (4.30-5.90) m/uL Hgb (13.0-17.5) gm/dL Hct (39.0-53.0) % MCV (80.0-100.0) fL MCH (25.0-35.0) pg MCHC (31.0-37.0) g/dL RDW (11.5-15.5) % Plt Count (150-450) k/uL MPV Neutrophils % % Lymphocytes % % Monocytes % % Eosinophils % % Basophils % % Neutrophils # (1.3-7.7) k/uL Lymphocytes # (1.0-4.8) k/uL Monocytes # (0-1.0) k/uL Eosinophils # (0-0.7) k/uL Basophils # (0-0.2) k/uL Macrocytosis Sodium 137 (137-145) mmol/L Potassium 5.9 H (3.5-5.1) mmol/L Chloride 102 (98-107) mmol/L Carbon Dioxide 27 (22-30) mmol/L Anion Gap 8 mmol/L BUN 32 H (9-20) mg/dL Creatinine 0.97 (0.66-1.25) mg/dL Est GFR (CKD-EPI)AfAm 82 (>60 ml/min/1.73 sqM) Est GFR (CKD-EPI)NonAf 71 (>60 ml/min/1.73 sqM) Glucose 97 (74-99) mg/dL Plasma Lactic Acid Trevor 1.5 (0.7-2.0) mmol/L Calcium 9.7 (8.4-10.2) mg/dL Magnesium 2.3 (1.6-2.3) mg/dL Total Bilirubin 1.3 (0.2-1.3) mg/dL AST 75 H (17-59) U/L ALT 47 (4-49) U/L Alkaline Phosphatase 288 H (38-126) U/L Troponin I <0.012 (0.000-0.034) ng/mL NT-Pro-B Natriuret Pep 2620 pg/mL Total Protein 7.5 (6.3-8.2) g/dL Albumin 3.6 (3.5-5.0) g/dL Procalcitonin (0.02-0.09) ng/mL TSH 0.246 L (0.465-4.680) mIU/L Free T4 1.85 (0.78-2.19) ng/dL Urine Color Urine Appearance (Clear) Urine pH (5.0-8.0) Ur Specific [place] (1.001-1.035) Urine Protein (Negative) Urine Glucose (UA) (Negative) Urine Ketones (Negative) Urine Blood (Negative) Urine Nitrite (Negative) Urine Bilirubin (Negative) Urine Urobilinogen (<2.0) mg/dL Ur Leukocyte Esterase (Negative) Urine WBC (0-5) /hpf Ur Squamous Epith Cells (0-4) /hpf Urine Bacteria (None) /hpf Hyaline Casts (0-2) /lpf Urine Mucus (None) /hpf Influenza Type A (PCR) (Not Detectd) Influenza Type B (PCR) (Not Detectd) RSV (PCR) (Not Detectd) SARS-CoV-2 (PCR) (Not Detectd) 06/25/23 Range/Units 15:23 WBC (3.8-10.6) k/uL RBC (4.30-5.90) m/uL Hgb (13.0-17.5) gm/dL Hct (39.0-53.0) % MCV (80.0-100.0) fL MCH (25.0-35.0) pg MCHC (31.0-37.0) g/dL RDW (11.5-15.5) % Plt Count (150-450) k/uL MPV Neutrophils % % Lymphocytes % % Monocytes % % Eosinophils % % Basophils % % Neutrophils # (1.3-7.7) k/uL Lymphocytes # (1.0-4.8) k/uL Monocytes # (0-1.0) k/uL Eosinophils # (0-0.7) k/uL Basophils # (0-0.2) k/uL Macrocytosis Sodium (137-145) mmol/L Potassium (3.5-5.1) mmol/L Chloride (98-107) mmol/L Carbon Dioxide (22-30) mmol/L Anion Gap mmol/L BUN (9-20) mg/dL Creatinine (0.66-1.25) mg/dL Est GFR (CKD-EPI)AfAm (>60 ml/min/1.73 sqM) Est GFR (CKD-EPI)NonAf (>60 ml/min/1.73 sqM) Glucose (74-99) mg/dL Plasma Lactic Acid Trevor (0.7-2.0) mmol/L Calcium (8.4-10.2) mg/dL Magnesium (1.6-2.3) mg/dL Total Bilirubin (0.2-1.3) mg/dL AST (17-59) U/L ALT (4-49) U/L Alkaline Phosphatase (38-126) U/L Troponin I (0.000-0.034) ng/mL NT-Pro-B Natriuret Pep pg/mL Total Protein (6.3-8.2) g/dL Albumin (3.5-5.0) g/dL Procalcitonin 0.07 (0.02-0.09) ng/mL TSH (0.465-4.680) mIU/L Free T4 (0.78-2.19) ng/dL Urine Color Urine Appearance (Clear) Urine pH (5.0-8.0) Ur Specific [place] (1.001-1.035) Urine Protein (Negative) Urine Glucose (UA) (Negative) Urine Ketones (Negative) Urine Blood (Negative) Urine Nitrite (Negative) Urine Bilirubin (Negative) Urine Urobilinogen (<2.0) mg/dL Ur Leukocyte Esterase (Negative) Urine WBC (0-5) /hpf Ur Squamous Epith Cells (0-4) /hpf Urine Bacteria (None) /hpf Hyaline Casts (0-2) /lpf Urine Mucus (None) /hpf Influenza Type A (PCR) (Not Detectd) Influenza Type B (PCR) (Not Detectd) RSV (PCR) (Not Detectd) SARS-CoV-2 (PCR) (Not Detectd) Disposition Clinical Impression: Congestive heart failure, Pneumonia, Influenza A, Hyperkalemia Disposition: ADMITTED IP TO THIS HOSP Condition: Stable Is patient prescribed a controlled substance at d/c from ED?: No Time of Disposition: 18:28
[2023-06-25] MEDS ORDERED: NALOXONE 0.4 MG/ML 1 ML VIAL IV PRN (18:33)
[2023-06-25 18:40] LABS: T4, Free (Free Thyroxine) 1.85 ng/dL (0.78-2.19)
[2023-06-25] MEDS ORDERED: ACETAMINOPHEN TAB 325 MG TAB PO PRN (19:13)
[2023-06-25] MEDS ORDERED: PNEUMONIA PROTOCOL UTILIZED 1 EACH MISC PO PRN (19:16)
[2023-06-25] MEDS: AZITHROMYCIN 500 MG in SODIUM CHLORIDE 0.9% 250 ML IVPB STA (20:17)
[2023-06-26 08:22] LABS: Basophils # (A) 0.08 X 10*3/uL (0.00-0.10); Eosinophils # (A) 0.15 X 10*3/uL (0.04-0.35); Eosinophils % (A) 1.8 %; HCT 47.4 % (39.6-50.0); HGB 16.2 g/dL (13.0-17.0); Lymphocytes # (A) 2.56 X 10*3/uL (0.90-5.00); Lymphocytes % (A) 30.4 %; MCH 35.7 pg (27.0-32.0); MCHC 34.2 g/dL (32.0-37.0); MCV 104.4 FL (80.0-97.0); Mean Platelet Volume 11.4 FL (9.5-12.2); Monocytes # (A) 1.08 X 10*3/uL (0.20-1.00); Monocytes % (A) 12.8 %; NRBC Per 100 WBC 0 X 10*3/uL (0.00-0.01); Neutrophils # (A) 4.37 X 10*3/uL (1.80-7.70); Neutrophils % (A) 51.9 %; Platelet Count 236 X 10*3/uL (140-440); RBC 4.54 X 10*6/uL (4.40-5.60); RDW 13.5 % (11.5-14.5); WBC 8.42 X 10*3/uL (4.50-10.00)
[2023-06-26 09:11] LABS: Blood Urea Nitrogen 25.2 mg/dL (9.0-27.0); Calcium 8.8 mg/dL (8.7-10.3); Carbon Dioxide 21.2 mmol/L (21.6-31.8); Chloride 105 mmol/L (96-109); Glucose 85 mg/dL (70-110); Potassium 5.2 mmol/L (3.5-5.5); Sodium 135 mmol/L (135-145)
[2023-06-26] MEDS: ASPIRIN 81 MG PO SCH (10:59)
[2023-06-26] MEDS: TAMSULOSIN 0.4 MG CAP.ER.24H PO SCH (11:00)
[2023-06-26] MEDS: ENOXAPARIN 40 MG/0.4 ML SYRINGE SQ SCH (11:01)
[2023-06-26] MEDS: METOPROLOL SUCCINATE (ER) 25 MG TAB.ER.24H PO SCH (11:01)
[2023-06-26] MEDS: THYROID, PORK 30 MG TAB PO SCH (11:02)
[2023-06-26] MEDS: SPIRONOLACTONE 25 MG TAB PO SCH (11:02)
--- NOTE | 2023-06-26 11:40 | XR ---
EXAMINATION TYPE: XR chest 2V DATE OF EXAM: 06/26/2023 COMPARISON: 06/25/2023 HISTORY: 88-year-old male pneumonia TECHNIQUE: Frontal and lateral views FINDINGS: Left anterior chest wall pacemaker generator with right atrial and right ventricular leads. Median st ernotomy wires and post-CABG clips. Mild hyperinflation. Mild cardiomegaly. Diffuse interstitial dens ities and patchy/hazy densities in the mid and lower lungs slightly worsened from prior. IMPRESSION: COPD with patchy infiltrates mid and lower lungs slightly worsened from prior. Consider infectious or aspiration pneumonitis. Interstitial pneumonitis is also in the differential.
[2023-06-26] MEDS: IOPAMIDOL CONTRAST (ORAL USE) VIAL PO PRN (13:38)
[2023-06-26] MEDS ORDERED: ZINC OXIDE PASTE (Z-GUARD) 1 APPLIC TOPICAL PRN (14:31)
[2023-06-26] MEDS: AZITHROMYCIN 500 MG TAB PO SCH (14:34)
[2023-06-26] MEDS: BUMETANIDE 1 MG TAB PO SCH (15:16)
[2023-06-26 15:53] LABS: Alpha Fetoprotein, Tumor Mkr <3.00 ng/mL (0.00-7.90); Carcinoembryonic Antigen 5.2 ng/mL (0.0-4.9)
--- NOTE | 2023-06-26 16:05 | CT ---
EXAMINATION TYPE: CT ChestAbdPelvis wo/w con DATE OF EXAM: 06/26/2023 COMPARISON: 06/26/2023. HISTORY: Abnormal weight loss. CT DLP: 3712 mGycm Automated exposure control for dose reduction was used. CONTRAST: CT scan of the chest, abdomen and pelvis is performed without Oral Contrast and without and with IV C ontrast, patient injected with 100ml mL of Isovue 300. FINDINGS: LUNGS: Trace right pleural effusion. There is scattered interstitial changes seen throughout the lung s bilaterally which are likely related to chronic and fibrotic changes. These are more prominent at t he lung bases. There is no focal area of consolidation. MEDIASTINUM: The heart is moderately to significantly enlarged. There are midline sternotomy wires. L eft-sided pacemaker generator has leads in the right atrium and right ventricle. Surgical changes of prior CABG are noted. There is significant coronary artery calcifications. OTHER: No additional significant abnormality is seen. LIVER/GB: No significant abnormality is appreciated. PANCREAS: No significant abnormality is seen. SPLEEN: No significant abnormality is seen. ADRENALS: No significant abnormality is seen. KIDNEYS: 1.4 cm cyst in the upper pole of the left kidney. 1.4 cm simple cyst in the lower pole of th e left kidney. The left kidneys and ureters otherwise appear unremarkable BOWEL: There is moderate sigmoid colonic diverticulosis without evidence of diverticulitis. REPRODUCTIVE ORGANS: The prostate is moderately to significantly enlarged with likely radiation seeds present. LYMPH NODES: No greater than 1 cm abdominal or pelvic lymph nodes are appreciated. OSSEOUS STRUCTURES: No significant abnormality is seen. OTHER: Nothing significant. IMPRESSION: 1. Chronic and likely fibrotic changes within the lungs bilaterally. 2. Trace right pleural effusion. 3. Cardiomegaly. 4. Diverticulosis without evidence of diverticulitis. 5. Prostatomegaly.
--- NOTE | 2023-06-26 17:59 | P.HPIM ---
History of Present Illness H&P Date: 06/26/23 Chief Complaint: Increased weakness This is a very pleasant 88-year-old patient who follows Dr. Norman. Does live with his . Chronic stable medical conditions include coronary artery disease with coronary bypass, pacemaker, osteoarthritis, CHF. Lives with his . Patient had a flu infection about 3 weeks ago. Now progressively has gotten weak. Barely able to stand gets dizzy lightheaded. Decreased appetite. Patient lost about 50 pounds in last 1 year. Last 2 weeks is having diarrhea including rather aggressive. Denies any fever chills abdominal pain. Tired rundown. Review of systems: GEN.: Decreased appetite tired weight loss EYES: None HEENT: None NECK: None RESPIRATORY: None CARDIOVASCULAR: None GASTROINTESTINAL: As above e GENITOURINARY: None MUSCULOSKELETAL: Joint pains LYMPHATICS: None HEMATOLOGICAL: None PSYCHIATRY: None NEUROLOGICAL: None Social history: Lives with his . Non-smoker. No alcohol. Retired Physical examination: VITAL SIGNS: 98.1, 70, blood pressure 105 x 76 lying down and 79/57 standing up GENERAL: BMI 22.1, laying in bed awake tired. EYES: Pupils equal. Conjunctiva tommy l. HEENT: External appearance of nose and ears normal, oral cavity grossly normal. NECK: JVD not raised; masses not palpable. HEART: First and second heart sounds are normal; no edema. LUNGS: Respiratory rate normal; clear to auscultation. ABDOMEN: Soft, nontender, liver spleen not palpable, no masses palpable. PSYCH: Alert and oriented x3; mood and affect tommy l. MUSCULOSKELETAL:No Clubbing/cyanosis;muscles-grossly intact. OA NEUROLOGICAL: Cranial nerves grossly intact; no facial asymmetry, power and sensation grossly intact. LYMPHATICS: No lymph nodes palpable in the axilla and neck INVESTIGATIONS, reviewed in the clinical context: June 26: White count 8.4 hemoglobin 16.2 platelets 236 sodium 135 potassium 5.2 creatinine is 1.0 Alpha-fetoprotein: Less than 3 CEA antigen 5.2 TSH 0.246. Free T41.85. Procalcitonin 0.07 Influenza type A, type B, RSV, COVID-19: Not detected EKG tracing personally reviewed by me-ventricular paced rhythm Chest x-ray film personally reviewed by me-cardiomegaly. Pacemaker. Some interstitial changes. Questionable upper lobe mass CT chest abdomen pelvis with and without contrast: Scattered interstitial changes throughout the lungs bilaterally. Heart is enlarged. Coronary calcification. Moderate sigmoid colon diverticulosis. Prostate is significantly enlarged. Previous labs: 2D echocardiogram April 22, 2023: EF 55%. Calcified aortic valve. Assessment and plan: -This is a patient present increasing asthenia weakness. Falls. Had a flu symptoms about 2 weeks ago. But patient is losing weight about 50 pounds in last 1 year. Having significant diarrhea. Found to be orthostatic. Need to rule out rule out underlying GI malignancy. Patient will be made n.p.o. after midnight. Clear liquid diet. GoLytely. Dr. Jules Curry from [facility] been consulted for the same. For EGD colonoscopy tomorrow. -Orthostatic hypotension From diarrhea and decreased appetite -Essential hypertension Hold Bumex, Cozaar, Aldactone. Continue Toprol-XL Hyperlipidemia Lipitor 40 mg nightly -Clinical dehydration IV fluids gently. -Hyperkalemia: Corrected -Chronic congestive heart failure from diastolic dysfunction EF 55%. Hold off diuretics for now -BPH Flomax -Hypothyroidism from over replacement. This patient is lost over 50 pounds. Will cut back the thyroid dose to 90 mg. This itself could be causing the diarrhea. And some weight loss Patient has over 50 pound weight loss severe diarrhea. Weak tired. Orthostatic. Will need workup for his weight loss. Given the complexity and severity of patient's condition expect the patient to be in the hospital at least for 2 overnights - Past Medical History Past Medical History: Coronary Artery Disease (CAD), Heart Failure History of Any Multi-Drug Resistant Organisms: None Reported Past Surgical History: Appendectomy, Coronary Bypass/CABG, Pacemaker Additional Past Surgical History / Comment(s): rt hip surgery 1986 Past Anesthesia/Blood Transfusion Reactions: No Reported Reaction Type of Cardiac Device: Permanent Pacemaker Device Placement Date:: unknown Past Psychological History: No Psychological Hx Reported Smoking Status: Never smoker Past Alcohol Use History: None Reported Past Drug Use History: None Reported Medications and Allergies Home Medications Medication Instructions Recorded Confirmed Type Aspirin 81 mg PO DAILY #90 tab 04/24/23 06/25/23 Rx Atorvastatin [Lipitor] 40 mg PO HS #90 tab 04/24/23 06/25/23 Rx Bumetanide [BUMEX] 1 mg PO DAILY #90 tab 04/24/23 06/25/23 Rx Losartan [Cozaar] 25 mg PO DAILY #90 tab 04/24/23 06/25/23 Rx Metoprolol Succinate (ER) [Toprol 25 mg PO DAILY #90 tab 04/24/23 06/25/23 Rx XL] Spironolactone [Aldactone] 12.5 mg PO DAILY #90 tab 04/24/23 06/25/23 Rx Tamsulosin [Flomax] 0.4 mg PO PC-BRKFST #30 cap 04/24/23 06/25/23 Rx Adthyza 130mg 130 mg PO DAILY 06/25/23 06/26/23 History Dabigatran Etexilate Mesylate 150 mg PO DIRECTED 06/25/23 06/25/23 History [Dabigatran Etexilate] cefUROXime axetiL [Ceftin] 500 mg PO BID 06/25/23 06/25/23 History Allergies Allergy/AdvReac Type Severity Reaction Status Date / Time No Known Allergies Allergy Verified 06/25/23 22:19 Physical Exam Vitals: Vital Signs Temp Pulse Pulse Resp BP BP Pulse Ox 06/26/23 07:00 98.1 F 70 16 108/69 98 06/26/23 03:53 97.8 F 67 18 101/62 98 06/25/23 22:03 97.9 F 69 18 116/72 94 L 06/25/23 18:44 70 18 107/67 99 06/25/23 15:01 72 20 109/72 96 06/25/23 12:58 97.3 F L 47 L 18 98/65 100 Intake and Output 06/25/23 06/26/23 06/26/23 22:59 06:59 14:59 Output Total 600 Balance -600 Output: Urine 600 Other: # Bowel Movements 1 Weight 73.936 kg Results CBC & Chem 7: 06/26/23 06:01 06/26/23 06:01 Labs: Abnormal Lab Results - Last 24 Hours (Table) 06/25/23 06/25/23 06/25/23 Range/Units 15:23 15:23 15:23 MCV 108.8 H (80.0-100.0) fL MCH 36.0 H (25.0-35.0) pg Immature Gran # (0.00-0.04) X 10*3/uL Monocytes # (0.20-1.00) X 10*3/uL Potassium 5.9 H (3.5-5.1) mmol/L Carbon Dioxide (21.6-31.8) mmol/L BUN 32 H (9-20) mg/dL BUN/Creatinine Ratio (12.00-20.00) Ratio AST 75 H (17-59) U/L Alkaline Phosphatase 288 H (38-126) U/L TSH 0.246 L (0.465-4.680) mIU/L Urine Protein 1+ H (Negative) Urine Bacteria Rare H (None) /hpf Hyaline Casts 9 H (0-2) /lpf Urine Mucus Few H (None) /hpf 06/26/23 06/26/23 Range/Units 06:01 06:01 MCV 104.4 H (80.0-100.0) fL MCH 35.7 H (25.0-35.0) pg Immature Gran # 0.18 H (0.00-0.04) X 10*3/uL Monocytes # 1.08 H (0.20-1.00) X 10*3/uL Potassium (3.5-5.1) mmol/L Carbon Dioxide 21.2 L (21.6-31.8) mmol/L BUN (9-20) mg/dL BUN/Creatinine Ratio 25.20 H (12.00-20.00) Ratio AST (17-59) U/L Alkaline Phosphatase (38-126) U/L TSH (0.465-4.680) mIU/L Urine Protein (Negative) Urine Bacteria (None) /hpf Hyaline Casts (0-2) /lpf Urine Mucus (None) /hpf
[2023-06-26] MEDS: PEG 3350 (236 GM/BTL) + LYTES 4,000 ML BOTTLE PO ONE (19:49)
[2023-06-26] MEDS: ATORVASTATIN 40 MG TAB PO SCH (20:38)
[2023-06-26] MEDS ORDERED: LOSARTAN 25 MG TAB PO SCH (21:00)
--- NOTE | 2023-06-27 09:21 | P.CONS ---
History of Present Illness - Reason for Consult Consult date: 06/27/23 EGD and colonoscopy, weight loss and positive CEA Requesting physician: Oswaldo Orr - Chief Complaint Weakness - History of Present Illness This is a pleasant 88-year-old male who presented to the hospital with complaints of generalized weakness, diarrhea and shortness of breath. He has a past medical history including coronary artery disease status post CABG and pac emaker. He states that he has been sick for the last month with the flu. He has had diarrhea upper respiratory symptoms and states that he has had a 50 pound weight loss over the last 1 year duration. He states over the last 1 year he has not had much of an appetite and the weight just started falling off. He denies any abdominal pain, nausea or vomiting. Reports nonbloody stool. Chest x-ray reported COPD with patchy infiltrate consider infectious or aspiration pneumonitis, interstitial pneumonitis in the differential. He also had a CT of the chest abdomen pelvis reporting chronic and likely fibrotic changes with the lungs bilaterally trace right pleural effusion, cardiomegaly, diverticulosis without evidence of diverticulitis and prostamegaly. He had a CEA that was elevated. Gastroenterology was consulted and asked to do EGD and colonoscopy on this patient. He states his last colonoscopy was at least 10 to 15 years ago which she states was normal. No history of upper endoscopy. Influenza and COVID-19 negative. Review of Systems REVIEW OF SYSTEMS: CARDIOPULMONARY: No chest pain. Shortness of breath. Gastrointestinal: No reported abdominal pain. No nausea or vomiting. No hematemesis, coffee-ground emesis. Diarrhea. No rectal bleeding, or melena. Decreased appetite. GENITOURINARY: No dysuria or hematuria. MUSCULOSKELETAL: Reports normal range of motion. SKIN: No rashes. No jaundice. ENDOCRINE: No chills, fevers. No excessive weight gain or loss. No polydipsia or polyuria. PSYCHIATRIC: Unremarkable. NEUROLOGY: No change in mental status. Denies dizziness, headache. ENT: Vision unremarkable. CONSTITUTIONAL: 50 pound weight loss over the last year.. No fever, chills, night sweats. Weakness. Past Medical History Past Medical History: Coronary Artery Disease (CAD), Heart Failure History of Any Multi-Drug Resistant Organisms: None Reported Past Surgical History: Appendectomy, Coronary Bypass/CABG, Pacemaker Additional Past Surgical History / Comment(s): rt hip surgery 1986 Past Anesthesia/Blood Transfusion Reactions: No Reported Reaction Type of Cardiac Device: Permanent Pacemaker Device Placement Date:: unknown Past Psychological History: No Psychological Hx Reported Smoking Status: Never smoker Past Alcohol Use History: None Reported Past Drug Use History: None Reported Medications and Allergies Home Medications Medication Instructions Recorded Confirmed Type Aspirin 81 mg PO DAILY #90 tab 04/24/23 06/25/23 Rx Atorvastatin [Lipitor] 40 mg PO HS #90 tab 04/24/23 06/25/23 Rx Bumetanide [BUMEX] 1 mg PO DAILY #90 tab 04/24/23 06/25/23 Rx Losartan [Cozaar] 25 mg PO DAILY #90 tab 04/24/23 06/25/23 Rx Metoprolol Succinate (ER) [Toprol 25 mg PO DAILY #90 tab 04/24/23 06/25/23 Rx XL] Spironolactone [Aldactone] 12.5 mg PO DAILY #90 tab 04/24/23 06/25/23 Rx Tamsulosin [Flomax] 0.4 mg PO PC-BRKFST #30 cap 04/24/23 06/25/23 Rx Adthyza 130mg 130 mg PO DAILY 06/25/23 06/26/23 History Dabigatran Etexilate Mesylate 150 mg PO DIRECTED 06/25/23 06/25/23 History [Dabigatran Etexilate] cefUROXime axetiL [Ceftin] 500 mg PO BID 06/25/23 06/25/23 History Allergies Allergy/AdvReac Type Severity Reaction Status Date / Time No Known Allergies Allergy Verified 06/25/23 22:19 Physical Exam Vitals: Vital Signs Temp Pulse Pulse Pulse Pulse Resp BP 06/27/23 01:49 97.6 F 70 16 06/26/23 20:00 97.7 F 62 16 06/26/23 14:00 16 06/26/23 13:30 97.3 F L 66 73 70 97/65 06/26/23 08:00 16 BP BP BP Pulse Ox 06/27/23 01:49 109/68 90 L 06/26/23 20:00 116/70 90 L 06/26/23 14:00 06/26/23 13:30 79/57 105/66 99 06/26/23 08:00 Intake and Output 06/26/23 06/27/23 06/27/23 22:59 06:59 14:59 Output Total 750 Balance -750 Output: Urine 750 Other: Voiding Method External Catheter # Bowel Movements 1 3 General appearance: The patient is alert, oriented, appears in no acute distress. HET: Head is normocephalic and atraumatic. Conjunctiva pink. Sclera anicteric. Neck: Supple without lymphadenopathy. Trachea midline. Heart: Regular. Lungs: Equal expansion, normal respiratory effort. Abdomen: Soft, nontender, nondistended with bowel sounds. No guarding or rigidity. Skin: No rashes. No jaundice. Extremities: Normal skin color and turgor. No pedal edema. Neurological: No focal deficits. Alert and oriented x3. Results CBC & Chem 7: 06/26/23 06:01 06/26/23 06:01 Labs: Abnormal Lab Results - Last 24 Hours (Table) 06/26/23 06/26/23 06/26/23 Range/Units 06:01 06:01 11:32 MCV 104.4 H (80.0-97.0) FL MCH 35.7 H (27.0-32.0) pg Immature Gran # 0.18 H (0.00-0.04) X 10*3/uL Monocytes # 1.08 H (0.20-1.00) X 10*3/uL Carbon Dioxide 21.2 L (21.6-31.8) mmol/L BUN/Creatinine Ratio 25.20 H (12.00-20.00) Ratio Carcinoembryonic Ag 5.2 H (0.0-4.9) ng/mL Comments: Chest x-ray reported COPD with patchy infiltrate consider infectious or aspiration pneumonitis, interstitial pneumonitis in the differential. CT of the chest abdomen pelvis reporting chronic and likely fibrotic changes with the lungs bilaterally trace right pleural effusion, cardiomegaly, dive rticulosis without evidence of diverticulitis and prostamegaly. Assessment and Plan (1) Diarrhea Narrative/Plan: 88-year-old male with ongoing diarrhea and upper respiratory symptoms over the last 1 months duration. Patient reports nonbloody diarrhea. Also reports unintentional weight loss over last 1 year duration up to [address] chest abdomen and pelvis with findings of diverticulosis without evidence of diverticulitis. Patient had an elevated CEA, primary medical team following patient was concerned due to weight loss. Requested EGD and colonoscopy to be completed. Will proceed with EGD and colonoscopy today. Patient did finish a bowel prep yesterday and states that he is clear. Current Visit: Yes Status: Acute Code(s): R19.7 - DIARRHEA, UNSPECIFIED SNOMED Code(s): 77368605 (2) Unintentional weight loss Current Visit: Yes Status: Acute Code(s): R63.4 - ABNORMAL WEIGHT LOSS SNOMED Code(s): 653345181 Plan: 1. Continue symptomatic and supportive care 2. Keep n.p.o. 3. Patient has completed a bowel prep 4. Plan for EGD and colonoscopy today 5. Further recommendations forthcoming based on endoscopic findings Thank you for this consultation, we will sign off at this time as there will be no further GI available in the hospital. Dr. Jules Curry I agree with the dictator's note, documented as a scribe by Janiya Tineo.
--- NOTE | 2023-06-27 12:25 | CDI ---
Documentation Clarification Form Date: 06/27/2023 12:01:01 PM From: Kristin Wilson RN CCDS Phone: [phone] Admit Date: 06/25/2023 07:14:00 PM Patient Name: Lee Rodriguez Visit Number: [id number] Discharge Date: ATTENTION: The Clinical Documentation Specialists (CDI) and [facility] Coding Staff appreciate your assistance in clarifying documentation. Please respond to the clarification below the line at the bottom and electronically sign. The CDI & [facility] Coding staff will review the response and follow-up if needed. Please note: Queries are made part of the Legal Health Record. If you have any questions, please contact the author of this message via ITS. Dr. Oswaldo Orr Your patient is receiving the followin/14 Azithromycin 500mg IVPB X 1, 06/25 Ceftriaxone 2gm IVPB x 1, 06/26 Zithromax 500mg po daily x 2 doses, 06/26 Ceftriaxone IVPB Q24H x 4 bags. Please clarify what condition/diagnosis is being treated. History/Risk Factors: 88-year old male presents to the ED with progressive weakness, barely able to stand, decreased appetite, being dizzy and lightheaded. Medical History: CHF, Flu infection three weeks prior, OA, CAD with coronary bypass and pacemaker. 06/26 H&P Clinical indicators: CXR, 06/25: Cardiac silhouette is moderately enlarged with mild diffuse interstitial changes throughout the lungs bilaterally which is likely related to mild edema. More focal opacity in the left upper lobe is new since the previous examination and could represent developing pneumonia with an underlying mass not excluded. CXR, 06/26: COPD with patchy infiltrates mid and lower lungs slightly worsened from prior. Consider infectious or aspiration pneumonitis. Interstitial pneumonitis is also in the differential. Lung exam, 06/26 HP: Respiratory rate normal; clear to auscultation. Treatment: 06/25 Azithromycin 500mg IVPB X 1, 06/25 Ceftriaxone 2gm IVPB x 1, 15 Zithromax 500mg po daily x 2 doses, 15 Ceftriaxone IVPB Q24H x 4 bags. What diagnosis are you treating with Azithromycin and Ceftriaxone? [ ] Pneumonia [ ] No additional diagnosis [ + ] Other, please specify____antibiotics stopped.. No infection [ ] Unable to determine (Template Last Reviewed: June 2020) MTDD
--- NOTE | 2023-06-27 16:05 | P.PN ---
Progress Note - Text Progress Note Date: 06/27/23 Chief Complaint: Increased weakness This is a very pleasant 88-year-old patient who follows Dr. Norman. Does live with his . Chronic stable medical conditions include coronary artery disease with coronary bypass, pacemaker, osteoarthritis, CHF. Lives with his wi fe. Patient had a flu infection about 3 weeks ago. Now progressively has gotten weak. Barely able to stand gets dizzy lightheaded. Decreased appetite. Patient lost about 50 pounds in last 1 year. Last 2 weeks is having diarrhea including rather aggressive. Denies any fever chills abdominal pain. Tired rundown. June 27: Patient seen this morning. Did feeling a little bit better. Pending EGD colonoscopy later today. Active Medications Acetaminophen (Acetaminophen Tab 325 Mg Tab) 650 mg PO Q6HR PRN PRN Reason: Mild Pain or Fever > 100.5 Aspirin (Aspirin 81 Mg) 81 mg PO DAILY [facility] Last Admin: 06/27/23 08:53 Dose: Not Given Atorvastatin Calcium (Atorvastatin 40 Mg Tab) 40 mg PO HS [facility] Last Admin: 06/26/23 20:38 Dose: 40 mg Enoxaparin Sodium (Enoxaparin 40 Mg/0.4 Ml Syringe) 40 mg SQ DAILY [facility] Last Admin: 06/27/23 08:54 Dose: Not Given Metoprolol Succinate (Metoprolol Succinate (Er) 25 Mg Tab.Er.24h) 25 mg PO DAILY [facility] Last Admin: 06/27/23 08:53 Dose: 25 mg Miscellaneous Information (Pneumonia Protocol Utilized 1 Each Misc) 1 each PO ONCE PRN PRN Reason: Per Protocol Naloxone HCl (Naloxone 0.4 Mg/Ml 1 Ml Vial) 0.2 mg IV Q2M PRN PRN Reason: Opioid Reversal Petrolatum (Zinc Oxide Paste (Z-Guard) 1 Applic) 1 applic TOPICAL Q2HR PRN; Protocol PRN Reason: Wound Healing Tamsulosin HCl (Tamsulosin 0.4 Mg Cap.Er.24h) 0.4 mg PO PC-BRKFST [facility] Last Admin: 06/27/23 08:53 Dose: 0.4 mg Thyroid (Thyroid, Pork 30 Mg Tab) 60 mg PO DAILY [facility] Thyroid (Thyroid, Pork 30 Mg Tab) 30 mg PO DAILY [facility] Social history: Lives with his . Non-smoker. No alcohol. Retired Physical examination: VITAL SIGNS: 97.8, 70, 14, 103 x 68, 98% room air GENERAL: Laying in bed, tired EYES: Pupils equal. Conjunctiva tommy l. HEENT: External appearance of nose and ears normal, oral cavity grossly normal. NECK: JVD not raised; masses not palpable. HEART: First and second heart sounds are normal; no edema. LUNGS: Respiratory rate normal; clear to auscultation. ABDOMEN: Soft, nontender, liver spleen not palpable, no masses palpable. PSYCH: Alert and oriented x3; mood and affect tommy l. MUSCULOSKELETAL:No Clubbing/cyanosis;muscles-grossly intact. OA INVESTIGATIONS, reviewed in the clinical context: Total PSA 2.3. C. difficile: Negative June 26: White count 8.4 hemoglobin 16.2 platelets 236 sodium 135 potassium 5.2 creatinine is 1.0 Alpha-fetoprotein: Less than 3 CEA antigen 5.2 TSH 0.246. Free T41.85. Procalcitonin 0.07 Influenza type A, type B, RSV, COVID-19: Not detected EKG tracing personally reviewed by me-ventricular paced rhythm Chest x-ray film personally reviewed by me-cardiomegaly. Pacemaker. Some interstitial changes. Questionable upper lobe mass CT chest abdomen pelvis with and without contrast: Scattered interstitial changes throughout the lungs bilaterally. Heart is enlarged. Coronary calcification. Moderate sigmoid colon diverticulosis. Prostate is significantly enlarged. Previous labs: 2D echocardiogram April 22, 2023: EF 55%. Calcified aortic valve. Assessment and plan: -This is a patient present increasing asthenia weakness. Falls. Had a flu symptoms about 2 weeks ago. But patient is losing weight about 50 pounds in last 1 year. Having significant diarrhea. Found to be orthostatic. Need to rule out rule out underlying GI malignancy. N.p.o. after midnight. Clear liquid diet. GoLytely. Dr. Jules Curry from [facility] been consulted for the same. For EGD colonoscopy today -Orthostatic hypotension From diarrhea and decreased appetite -Essential hypertension Hold Bumex, Cozaar, Aldactone. Continue Toprol-XL Hyperlipidemia Lipitor 40 mg nightly -Clinical dehydration IV fluids gently. -Hyperkalemia: Corrected -Chronic congestive heart failure from diastolic dysfunction EF 55%. Hold off diuretics for now -BPH Flomax -Hypothyroidism from over replacement. This patient is lost over 50 pounds. Will cut back the thyroid dose to 90 mg. This itself could be causing the diarrhea. And some weight loss Pending EGD colonoscopy today. - Past Medical History Past Medical History: Coronary Artery Disease (CAD), Heart Failure History of Any Multi-Drug Resistant Organisms: None Reported Past Surgical History: Appendectomy, Coronary Bypass/CABG, Pacemaker Additional Past Surgical History / Comment(s): rt hip surgery 1986 Past Anesthesia/Blood Transfusion Reactions: No Reported Reaction Type of Cardiac Device: Permanent Pacemaker Device Placement Date:: unknown Past Psychological History: No Psychological Hx Reported Smoking Status: Never smoker Past Alcohol Use History: None Reported Past Drug Use History: None Reported
[2023-06-27] MEDS: SODIUM CHLORIDE 0.9% 500 ML 500 ML IV ONE (16:13)
[2023-06-27] MEDS ORDERED: PROPOFOL 10 MG/ML 20 ML VIAL IV ONE (16:15)
--- NOTE | 2023-06-27 16:35 | P.PCN ---
Date of Procedure: 06/27/23 Procedure(s) Performed: Brief history: Patient is a pleasant 88-year-old white male admitted hospital with severe diarrhea for the last month duration. He is having bowel movements anywhere from 10-12 a day which are loose to watery in consistency associated with weight loss of 50 pounds in the last 6 months. He complains of generalized fatigue and weakness. No rectal bleeding. CT of abdomen and pelvis was unremarkable. He is scheduled for an upper endoscopy as well as colonoscopy to evaluate further. Procedure performed: Esophagogastroduodenoscopy biopsy. Colonoscopy with biopsy Preoperative diagnosis: Abdominal pain, chronic diarrhea Progressive weight loss of 50 pounds in the last 1 year duration Anesthesia: MAC Procedure: After informed consent was obtained from the patient was brought into the endoscopy unit and IV sedation was administered by anesthesia under continuous monitoring. Initially upper endoscopy was done. The Olympus GF 160 video endoscope was inserted inserted into the mouth and esophagus intubated without any difficulty and was gradually advanced into the stomach and duodenum and carefully examined. The bulb and second part of the duodenum appeared normal. Multiple biopsies were done from the duodenum to evaluate for celiac disease. The scope was then withdrawn into the stomach adequately insufflated with air and upon careful examination the antrum had gastritis and biopsies were done from this area. Mucosa body, cardia and fundus appeared normal. The scope was then withdrawn into the esophagus. Small hiatal hernia noted. The GE junction was located at 40 cm to the incisors. It appeared regular with no erythema erosions or ulcerations. Rest of the esophagus appeared normal. Patient tolerated the procedure well. At this time the patient continued to remain sedation. Initial digital rectal examination was normal. Olympus CF 160 video colonoscope was then inserted into the rectum and gradually advanced to the cecum without any difficulty. Careful examination was performed as the scope was gradually being withdrawn. The prep was excellent. Terminal ileum was intubated and 20 cm visualized and appeared normal. The cecum, ascending colon, transverse colon, descending colon, sigmoid colon and rectum appeared normal. Biopsies were done from ascending and descending colon to rule out microscopic/collagenous colitis. Retroflexion was performed in the rectum and no lesions were noted. Patient tolerated the procedure well. Impression: 1. Upper endoscopy revealed mild antral gastritis, small hiatal hernia 2. Colonoscopy was within normal limits with no evidence of colitis or colorectal neoplasia Recommendations: Findings of this examination were discussed with the patient . Follow with biopsy results. Advance diet as tolerated. Recommend Imodium for the chronic diarrhea. Follow up in one to 2 weeks following discharge from the hospital
[2023-06-27] MEDS: LACTATED RINGERS 1,000 ML IV SCH (18:49)
[2023-06-28] MEDS: THYROID, PORK 30 MG TAB PO SCH ×2 (08:52)
[2023-06-28 14:15] VITALS: RESP 19; TEMP 97.8
--- NOTE | 2023-06-28 16:12 | P.DS ---
Providers Date of admission: 06/25/23 19:14 Attending physician: Oswaldo Orr Consults: 06/26/23 17:53 Consult Physician Routine Consulting Provider: Flori Curry Consult Reason/Comments: EGD colonoscopy. Elevated CEA. Diarrhea weight loss Do you want consulting provider notified?: Yes Primary care physician: Inocencio Norman Patient Condition at Discharge: Stable Plan - Discharge Summary New Discharge Prescriptions: New Thyroid, Pork [[place] Thyroid] 30 mg PO DAILY #0 tab Thyroid, Pork [[place] Thyroid] 60 mg PO DAILY tab Continue Dabigatran Etexilate Mesylate [Dabigatran Etexilate] 150 mg PO DIRECTED Adthyza 130mg 130 mg PO DAILY Aspirin 81 mg PO DAILY #90 tab Tamsulosin [Flomax] 0.4 mg PO PC-BRKFST #30 cap Atorvastatin [Lipitor] 40 mg PO HS #90 tab Metoprolol Succinate (ER) [Toprol XL] 25 mg PO DAILY #90 tab Discontinued Bumetanide [BUMEX] 1 mg PO DAILY #90 tab cefUROXime axetiL [Ceftin] 500 mg PO BID Spironolactone [Aldactone] 12.5 mg PO DAILY #90 tab Losartan [Cozaar] 25 mg PO DAILY #90 tab Discharge Medication List Aspirin 81 mg PO DAILY #90 tab 04/24/23 [Rx] Atorvastatin [Lipitor] 40 mg PO HS #90 tab 04/24/23 [Rx] Metoprolol Succinate (ER) [Toprol XL] 25 mg PO DAILY #90 tab 04/24/23 [Rx] Tamsulosin [Flomax] 0.4 mg PO PC-BRKFST #30 cap 04/24/23 [Rx] Adthyza 130mg 130 mg PO DAILY 06/25/23 [History] Dabigatran Etexilate Mesylate [Dabigatran Etexilate] 150 mg PO DIRECTED 06/25/23 [History] Thyroid, Pork [[place] Thyroid] 30 mg PO DAILY #0 tab 06/28/23 [Rx] Thyroid, Pork [[place] Thyroid] 60 mg PO DAILY tab 06/28/23 [Rx] Follow up Appointment(s)/Referral(s): Geoffrey Edwards MD [Medical Doctor] - 1 Week Inocencio Norman DO [Primary Care Provider] - 1-2 days [facility], [NON-STAFF] - 1-2 Days Ambulatory/Diagnostic Orders: Basic Metabolic Panel [LAB.AMB] Location: None Selected Complete Blood Count w/diff [LAB.AMB] Time Frame: 3 Days, Location: None Selected Activity/Diet/Wound Care/Special Instructions: Recommend to continue on decreased dose of thyroid armour. Follow up labs with PCP outpatient. Continue with ensure protein supplementation. Recommend holding BP medication and following up with Cardiology outpatient in 1 to 2 weeks. Discharge Disposition: HOME WITH HOME HEALTH SERVICES
[2023-06-28 16:31] VITALS: BP 103/70; PULSE 69
== END 2023-06-28 18:52 | disposition home health service (06) | DRG 392 ==
LOC: EC 12:31 → 6NMEDSUR 19:14 → OBSVTOIN 19:14 → 6NMEDSUR 20:41
PROVIDERS: ADMIT Hospitalist; ATTEND Hospitalist
PROC: 0DBK8ZX Excision of Ascending Colon, Via Natural or Artificial Opening Endoscopic, Diagnostic (ICD-10-PCS; 2023-06-27)
PROC: 0DBM8ZX Excision of Descending Colon, Via Natural or Artificial Opening Endoscopic, Diagnostic (ICD-10-PCS; 2023-06-27)
PROC: 0DB98ZX Excision of Duodenum, Via Natural or Artificial Opening Endoscopic, Diagnostic (ICD-10-PCS; principal; 2023-06-27 07:30)
PROC: 0DB78ZX Excision of Stomach, Pylorus, Via Natural or Artificial Opening Endoscopic, Diagnostic (ICD-10-PCS; 2023-06-27 07:30)
DX: K29.70 Gastritis, unspecified, without bleeding (principal); K52.1 Toxic gastroenteritis and colitis; I50.32 Chronic diastolic (congestive) heart failure; I11.0 Hypertensive heart disease with heart failure; E03.2 Hypothyroidism due to medicaments and other exogenous substances; I35.8 Other nonrheumatic aortic valve disorders; R63.4 Abnormal weight loss; E87.5 Hyperkalemia; K44.9 Diaphragmatic hernia without obstruction or gangrene; I25.10 Atherosclerotic heart disease of native coronary artery without angina pectoris; M19.90 Unspecified osteoarthritis, unspecified site; K57.30 Diverticulosis of large intestine without perforation or abscess without bleeding; I95.1 Orthostatic hypotension; E78.5 Hyperlipidemia, unspecified; E86.0 Dehydration; N40.0 Benign prostatic hyperplasia without lower urinary tract symptoms; T38.1X5A Adverse effect of thyroid hormones and substitutes, initial encounter; Z68.22 Body mass index [BMI] 22.0-22.9, adult; Z86.79 Personal history of other diseases of the circulatory system; Z11.52 Encounter for screening for COVID-19; Z95.1 Presence of aortocoronary bypass graft; Z79.899 Other long term (current) drug therapy; Z95.0 Presence of cardiac pacemaker; Z28.310 Unvaccinated for COVID-19; Z79.82 Long term (current) use of aspirin; Z79.01 Long term (current) use of anticoagulants
CPT/HCPCS: 36415; 43239; 45380; 51702; 71046; 71270; 74178; 80048; 80053; 81001; 82105; 82378; 83605; 83735; 83880; 84145; 84153; 84154; 84439; 84443; 84484; 85025; 87324; 87449; 87636; 88305; 93005; 96365; 96366; 99285

== ENCOUNTER → 2023-07-28 | Outpatient (CLI) | payer MEDICARE ==
[2023-07-29 03:54] LABS: HCT 43.7 % (39.6-50.0); HGB 14.2 g/dL (13.0-17.0); MCH 36.5 pg (27.0-32.0); MCHC 32.5 g/dL (32.0-37.0); MCV 112.3 FL (80.0-97.0); Mean Platelet Volume 11.7 FL (9.5-12.2); NRBC Per 100 WBC 0 X 10*3/uL (0.00-0.01); Platelet Count 201 X 10*3/uL (140-440); RBC 3.89 X 10*6/uL (4.40-5.60); RDW 16.4 % (11.5-14.5); WBC 8.16 X 10*3/uL (4.50-10.00)
[2023-07-29 04:31] LABS: NT-Pro-B-Type Natriuretic Pept 3529 pg/mL (0-450)
[2023-07-29 04:34] LABS: ALT 23 U/L (10-49); AST 48 U/L (14-35); Albumin 3.4 g/dL (3.8-4.9); Alkaline Phosphatase 222 U/L (41-126); BUN/Creat Ratio 19.78 Ratio (12.00-20.00); Blood Urea Nitrogen 17.8 mg/dL (9.0-27.0); Calcium 9.2 mg/dL (8.7-10.3); Carbon Dioxide 24.8 mmol/L (21.6-31.8); Chloride 100 mmol/L (96-109); Globulin 3.4 g/dL (1.6-3.3); Glucose 89 mg/dL (70-110); Potassium 4.9 mmol/L (3.5-5.5); Sodium 137 mmol/L (135-145); Total Bilirubin 0.9 mg/dL (0.3-1.2); Total Protein 6.8 g/dL (6.2-8.2)
== END | disposition home or self-care (01) ==
LOC: LABWHC1 16:19
PROVIDERS: ATTEND Student in an Organized Health Care Education/Training Program
DX: E11.22 Type 2 diabetes mellitus with diabetic chronic kidney disease (principal); N18.9 Chronic kidney disease, unspecified; I50.9 Heart failure, unspecified
CPT/HCPCS: 36415; 80053; 83036; 83880; 84443; 85027

== ENCOUNTER 2023-10-23 14:12 | Inpatient (IN) | payer MEDICARE ==
--- NOTE | 2023-10-23 14:15 | ED ---
Weakness HPI - General Source: patient, family, RN notes reviewed Mode of arrival: wheelchair Limitations: no limitations - History of Present Illness MD Complaint: generalized weakness <Tanna Parra - Last Filed: 10/23/23 14:16> <Armen Mauro - Last Filed: 10/23/23 19:32> - General Chief complaint: Weakness Stated complaint: low O2 Time Seen by Provider: 10/23/23 14:13 - History of Present Illness Initial comments: Quick Note: This is an 88-year-old male who presents to the emergency department for generalized weakness. Family states that he has been dealing with low oxygen saturation, bowel incontinence, and increasing weakness over the last week. States that his doctor told him to come in for evaluation. (Tanna Parra) This is a 88-year-old male who presents to the emergency department complaining of generalized weakness and low oxygen levels. Patient has also noticed some incontinence of stool when he becomes very weak which he has had in the past but he has not had it for few months. Patient denies any fever chills patient denies a cough. Patient denies any abdominal pain patient [place] any nausea but has had a couple episodes of vomiting. Patient denies any diarrhea. Patient does state he is short of breath and denies any chest pain. (Armen Mauro) - Related Data Home Medications Medication Instructions Recorded Confirmed Adthyza 130mg 130 mg PO DAILY 06/25/23 06/26/23 Dabigatran Etexilate Mesylate 150 mg PO DIRECTED 06/25/23 06/25/23 [Dabigatran Etexilate] Previous Rx's Medication Instructions Recorded Aspirin 81 mg PO DAILY #90 tab 04/24/23 Atorvastatin [Lipitor] 40 mg PO HS #90 tab 04/24/23 Metoprolol Succinate (ER) [Toprol 25 mg PO DAILY #90 tab 04/24/23 XL] Tamsulosin [Flomax] 0.4 mg PO PC-BRKFST #30 cap 04/24/23 Thyroid,Pork [[place] Thyroid] 90 mg PO DAILY #30 tablet 06/28/23 Allergies Allergy/AdvReac Type Severity Reaction Status Date / Time No Known Allergies Allergy Verified 06/25/23 22:19 Review of Systems ROS Other: All systems not noted in ROS Statement are negative. <Tanna Parra - Last Filed: 10/23/23 14:16> ROS Other: All systems not noted in ROS Statement are negative. <Armen Mauro - Last Filed: 10/23/23 19:32> ROS Statement: Those systems with pertinent positive or pertinent negative responses have been documented in the HPI. Past Medical History Past Medical History: Coronary Artery Disease (CAD), Heart Failure History of Any Multi-Drug Resistant Organisms: None Reported Past Surgical History: Appendectomy, Coronary Bypass/CABG, Pacemaker Additional Past Surgical History / Comment(s): rt hip surgery 1987 Past Anesthesia/Blood Transfusion Reactions: No Reported Reaction Type of Cardiac Device: Permanent Pacemaker Device Placement Date:: unknown Past Psychological History: No Psychological Hx Reported Smoking Status: Never smoker Past Alcohol Use History: None Reported Past Drug Use History: None Reported <Tanna Prara - Last Filed: 10/23/23 14:16> General Exam <Tanna Parra - Last Filed: 10/23/23 14:16> <Armen Mauro - Last Filed: 10/23/23 19:32> - General Exam Comments Initial Comments: Visual Physical Exam Vital signs reviewed General: Well-appearing, nontoxic, no acute distress. Head: Normocephalic, atraumatic Eyes: PERRLA, EOMI ENT: Airway patent Chest: Nonlabored breathing Skin: No visual rash, normal skin tone Neuro: Alert and oriented 3 Musculoskeletal: No gross abnormalities (Tanna Parra) GENERAL: Patient is well-developed and well-nourished. Patient is nontoxic and well- hydrated and is in mild distress. ENT: Neck is soft and supple. No significant lymphadenopathy is noted. Oropharynx is clear. Moist mucous membranes. Neck has full range of motion without eliciting any pain. EYES: The sclera were anicteric and conjunctiva were pink and moist. Extraocular movements were intact and pupils were equal round and reactive to light. Eyelids were unremarkable. PULMONARY: Unlabored respirations. Good breath sounds bilaterally. Patient has crackles bilaterally CARDIOVASCULAR: There is a regular rate and rhythm without any murmurs gallops or rubs. ABDOMEN: Soft and nontender with normal bowel sounds. SKIN: Skin is clear with no lesions or rashes and otherwise unremarkable. NEUROLOGIC: Patient is alert and oriented x3. Cranial nerves II through XII are grossly intact. Motor and sensory are also intact. Normal speech, volume and content. Symmetrical smile. MUSCULOSKELETAL: Normal extremities with adequate strength and full range of motion. 1+ edema bilaterally LYMPHATICS: No significant lymphadenopathy is noted PSYCHIATRIC: Normal psychiatric evaluation. (Armen Mauro) Course Vital Signs 10/23/23 14:14 Temperature 97.6 F Pulse Rate 73 Respiratory 16 Rate Blood Pressure 133/87 O2 Sat by Pulse 96 Oximetry Medical Decision Making <Tanna Parra - Last Filed: 10/23/23 14:16> - Lab Data Result diagrams: 10/23/23 14:21 10/23/23 17:55 <Armen Mauro - Last Filed: 10/23/23 19:32> - Medical Decision Making I performed the QuickNote portion of this chart. Signed Tanna Parra PA-C. (Tanna Parra) EKG is interpreted by myself. EKG shows a sinus rhythm for half of the EKG and then a paced rhythm the remaining half. In the preceding half of the rhythm he is at a rate of 71 bpm QRS 105 QT interval is 411 QTc is 433. There is some flipped T waves in the inferior leads which are unchanged from a previous EKG Was pt. sent in by a medical professional or institution ([facility]z, NET DEVELOPER, urgent care, hospital, or correction...) When possible be specific @ -No Did you speak to anyone other than the patient for history (EMS, parent, family, police, friend...)? What history was obtained from this source @ -No Did you review nursing and triage notes (agree or disagree)? Why? @ -I reviewed and agree with nursing and triage notes Were old charts reviewed (outside hosp., previous admission, EMS record, old EKG, old radiological studies, urgent care reports/EKG's, correction records)? Report findings @ -I compared today's EKG to a prior EKG there are no acute changes the T waves this on the inferior leads are the same as before. Differential Diagnosis (chest pain, altered mental status, abdominal pain women, abdominal pain men, vaginal bleeding, weakness, fever, dyspnea, syncope, headache, dizziness, GI bleed, back pain, seizure, CVA, palpatations, mental health, musculoskeletal)? @ -Differential Dyspnea: Coronary syndrome, arrhythmia, tamponade, asthma, COPD, pulmonary embolism, pneumonia, pneumothorax, pulmonary effusion, anaphylaxis, diabetic ketoacidosis, flailed chest, pulmonary contusion, diaphragmatic rupture, anemia, neuromuscular, this is not meant to be an all-inclusive list. EKG interpreted by me (3pts min.). @ -As above X-rays interpreted by me (1pt min.). @ -Chest x-ray shows pulmonary fibrosis with pulmonary vascular congestion CT interpreted by me (1pt min.). @ -None done U/S interpreted by me (1pt. min.). @ -None done What testing was considered but not performed or refused? (CT, X-rays, U/S, labs)? Why? @ -None What meds were considered but not given or refused? Why? @ -None Did you discuss the management of the patient with other professionals (professionals i.e. , PA, NET DEVELOPER, lab, RT, psych nurse, social media executive, tipple boss, teacher, chief development officer, case advocate)? Give summary @ -I spoke with Dr. Orr agreed to admit the patient admit the patient wrote admitting orders I consulted cardiology Was smoking cessation discussed for >3mins.? @ -No Was critical care preformed (if so, how long)? @ -No Were there social determinants of health that impacted care today? How? (Homeles sness, low income, unemployed, alcoholism, drug addiction, transportation, low edu. Level, literacy, decrease access to med. care, snf, rehab)? @ -No Was there de-escalation of care discussed even if they declined (Discuss DNR or withdrawal of care, Hospice)? DNR status @ -No What co-morbidities impacted this encounter? (DM, HTN, Smoking, COPD, CAD, Cancer, CVA, ARF, Chemo, Hep., AIDS, mental health diagnosis, sleep apnea, morbid obesity)? @ -None Was patient admitted / discharged? Hospital course, mention meds given and route, prescriptions, significant lab abnormalities, going to OR and other pertinent info. @ -Patient is being mated for pulmonary edema. I gave the patient Lasix and Nitropaste in the emergency department. I spoke with Dr. Figueroa and he agreed admit the patient admit the patient recommending orders Undiagnosed new problem with uncertain prognosis? @ -No Drug Therapy requiring intensive monitoring for toxicity (Heparin, Nitro, Insulin, Cardizem)? @ -No Were any procedures done? @ -No Diagnosis/symptom? @ -Pulmonary edema Acute, or Chronic, or Acute on Chronic? @ -Acute Uncomplicated (without systemic symptoms) or Complicated (systemic symptoms)? @ -Complicated Side effects of treatment? @ -No Exacerbation, Progression, or Severe Exacerbation? @ -No Poses a threat to life or bodily function? How? (Chest pain, USA, PA, pneumonia, PE, COPD, DKA, ARF, appy, cholecystitis, CVA, Diverticulitis, Homicidal, Suicidal, threat to staff... and all critical care pts) @ -Yes this can lead to hypoxia and endorgan dysfunction Diagnosis/symptom? @ -Weakness Acute, or Chronic, or Acute on Chronic? @ -Acute Uncomplicated (without systemic symptoms) or Complicated (systemic symptoms)? @ -Complicated Side effects of treatment? @ -None Exacerbation, Progression, or Severe Exacerbation] @ -No Poses a threat to life or bodily function? @ -No (Armen Mauro) - Lab Data Lab Results 10/23/23 10/23/23 10/23/23 Range/Units 14:21 14:21 15:21 WBC 6.6 (3.8-10.6) k/uL RBC 4.12 L (4.30-5.90) m/uL Hgb 14.8 (13.0-17.5) gm/dL Hct 46.6 (39.0-53.0) % MCV 113.2 H (80.0-100.0) fL MCH 35.9 H (25.0-35.0) pg MCHC 31.7 (31.0-37.0) g/dL RDW 13.4 (11.5-15.5) % Plt Count 106 L (150-450) k/uL MPV 11.4 Neutrophils % 68 % Lymphocytes % 19 % Monocytes % 10 % Eosinophils % 2 % Basophils % 1 % Neutrophils # 4.5 (1.3-7.7) k/uL Lymphocytes # 1.2 (1.0-4.8) k/uL Monocytes # 0.6 (0-1.0) k/uL Eosinophils # 0.1 (0-0.7) k/uL Basophils # 0.0 (0-0.2) k/uL Manual Slide Review Performed Macrocytosis Marked A PT 14.6 H (10.0-12.5) sec INR 1.4 H (<1.2) APTT 41.7 H (22.0-30.0) sec Sodium (137-145) mmol/L Potassium (3.5-5.1) mmol/L Chloride (98-107) mmol/L Carbon Dioxide (22-30) mmol/L Anion Gap mmol/L BUN (9-20) mg/dL Creatinine (0.66-1.25) mg/dL Est GFR (CKD-EPI)AfAm (>60 ml/min/1.73 sqM) Est GFR (CKD-EPI)NonAf (>60 ml/min/1.73 sqM) Glucose (74-99) mg/dL Plasma Lactic Acid Trevor (0.7-2.0) mmol/L Calcium (8.4-10.2) mg/dL Magnesium (1.6-2.3) mg/dL Total Bilirubin (0.2-1.3) mg/dL AST (17-59) U/L ALT (4-49) U/L Alkaline Phosphatase (38-126) U/L Troponin I (0.000-0.034) ng/mL NT-Pro-B Natriuret Pep pg/mL Total Protein (6.3-8.2) g/dL Albumin (3.5-5.0) g/dL Urine Color Colorless Urine Appearance Clear (Clear) Urine pH 5.5 (5.0-8.0) Ur Specific [place] 1.009 (1.001-1.035) Urine Protein Trace H (Negative) Urine Glucose (UA) Negative (Negative) Urine Ketones Negative (Negative) Urine Blood Trace H (Negative) Urine Nitrite Negative (Negative) Urine Bilirubin Negative (Negative) Urine Urobilinogen <2.0 (<2.0) mg/dL Ur Leukocyte Esterase Negative (Negative) Urine RBC 3 (0-5) /hpf Urine WBC 1 (0-5) /hpf Hyaline Casts 1 (0-2) /lpf Urine Mucus Rare H (None) /hpf Influenza Type A (PCR) (Not Detectd) Influenza Type B (PCR) (Not Detectd) RSV (PCR) (Not Detectd) SARS-CoV-2 (PCR) (Not Detectd) 10/23/23 10/23/23 10/23/23 Range/Units 17:55 17:55 17:55 WBC (3.8-10.6) k/uL RBC (4.30-5.90) m/uL Hgb (13.0-17.5) gm/dL Hct (39.0-53.0) % MCV (80.0-100.0) fL MCH (25.0-35.0) pg MCHC (31.0-37.0) g/dL RDW (11.5-15.5) % Plt Count (150-450) k/uL MPV Neutrophils % % Lymphocytes % % Monocytes % % Eosinophils % % Basophils % % Neutrophils # (1.3-7.7) k/uL Lymphocytes # (1.0-4.8) k/uL Monocytes # (0-1.0) k/uL Eosinophils # (0-0.7) k/uL Basophils # (0-0.2) k/uL Manual Slide Review Macrocytosis PT (10.0-12.5) sec INR (<1.2) APTT (22.0-30.0) sec Sodium 135 L (137-145) mmol/L Potassium 5.3 H (3.5-5.1) mmol/L Chloride 105 (98-107) mmol/L Carbon Dioxide 23 (22-30) mmol/L Anion Gap 7 mmol/L BUN 28 H (9-20) mg/dL Creatinine 0.88 (0.66-1.25) mg/dL Est GFR (CKD-EPI)AfAm 90 (>60 ml/min/1.73 sqM) Est GFR (CKD-EPI)NonAf 77 (>60 ml/min/1.73 sqM) Glucose 90 (74-99) mg/dL Plasma Lactic Acid Trevor 1.1 (0.7-2.0) mmol/L Calcium 8.8 (8.4-10.2) mg/dL Magnesium 1.9 (1.6-2.3) mg/dL Total Bilirubin 2.0 H (0.2-1.3) mg/dL AST 56 (17-59) U/L ALT 22 (4-49) U/L Alkaline Phosphatase 223 H (38-126) U/L Troponin I (0.000-0.034) ng/mL NT-Pro-B Natriuret Pep 6700 pg/mL Total Protein 7.5 (6.3-8.2) g/dL Albumin 3.8 (3.5-5.0) g/dL Urine Color Urine Appearance (Clear) Urine pH (5.0-8.0) Ur Specific [place] (1.001-1.035) Urine Protein (Negative) Urine Glucose (UA) (Negative) Urine Ketones (Negative) Urine Blood (Negative) Urine Nitrite (Negative) Urine Bilirubin (Negative) Urine Urobilinogen (<2.0) mg/dL Ur Leukocyte Esterase (Negative) Urine RBC (0-5) /hpf Urine WBC (0-5) /hpf Hyaline Casts (0-2) /lpf Urine Mucus (None) /hpf Influenza Type A (PCR) Not Detected (Not Detectd) Influenza Type B (PCR) Not Detected (Not Detectd) RSV (PCR) Not Detected (Not Detectd) SARS-CoV-2 (PCR) Not Detected (Not Detectd) 10/23/23 Range/Units 17:55 WBC (3.8-10.6) k/uL RBC (4.30-5.90) m/uL Hgb (13.0-17.5) gm/dL Hct (39.0-53.0) % MCV (80.0-100.0) fL MCH (25.0-35.0) pg MCHC (31.0-37.0) g/dL RDW (11.5-15.5) % Plt Count (150-450) k/uL MPV Neutrophils % % Lymphocytes % % Monocytes % % Eosinophils % % Basophils % % Neutrophils # (1.3-7.7) k/uL Lymphocytes # (1.0-4.8) k/uL Monocytes # (0-1.0) k/uL Eosinophils # (0-0.7) k/uL Basophils # (0-0.2) k/uL Manual Slide Review Macrocytosis PT (10.0-12.5) sec INR (<1.2) APTT (22.0-30.0) sec Sodium (137-145) mmol/L Potassium (3.5-5.1) mmol/L Chloride (98-107) mmol/L Carbon Dioxide (22-30) mmol/L Anion Gap mmol/L BUN (9-20) mg/dL Creatinine (0.66-1.25) mg/dL Est GFR (CKD-EPI)AfAm (>60 ml/min/1.73 sqM) Est GFR (CKD-EPI)NonAf (>60 ml/min/1.73 sqM) Glucose (74-99) mg/dL Plasma Lactic Acid Trevor (0.7-2.0) mmol/L Calcium (8.4-10.2) mg/dL Magnesium (1.6-2.3) mg/dL Total Bilirubin (0.2-1.3) mg/dL AST (17-59) U/L ALT (4-49) U/L Alkaline Phosphatase (38-126) U/L Troponin I 0.031 (0.000-0.034) ng/mL NT-Pro-B Natriuret Pep pg/mL Total Protein (6.3-8.2) g/dL Albumin (3.5-5.0) g/dL Urine Color Urine Appearance (Clear) Urine pH (5.0-8.0) Ur Specific [place] (1.001-1.035) Urine Protein (Negative) Urine Glucose (UA) (Negative) Urine Ketones (Negative) Urine Blood (Negative) Urine Nitrite (Negative) Urine Bilirubin (Negative) Urine Urobilinogen (<2.0) mg/dL Ur Leukocyte Esterase (Negative) Urine RBC (0-5) /hpf Urine WBC (0-5) /hpf Hyaline Casts (0-2) /lpf Urine Mucus (None) /hpf Influenza Type A (PCR) (Not Detectd) Influenza Type B (PCR) (Not Detectd) RSV (PCR) (Not Detectd) SARS-CoV-2 (PCR) (Not Detectd) Disposition <Tanna Parra - Last Filed: 10/23/23 14:16> Time of Disposition: 19:32 <Armen Mauro - Last Filed: 10/23/23 19:32> Clinical Impression: Pulmonary edema, acute, Generalized weakness, Incontinence of feces Disposition: ADMITTED IP TO THIS HOSP Referrals: Inocencio Norman DO [Primary Care Provider] - 1-2 days
--- NOTE | 2023-10-23 15:01 | XR ---
EXAMINATION TYPE: XR chest 2V DATE OF EXAM: 10/23/2023 COMPARISON: 06/26/2023 TECHNIQUE: PA and lateral views submitted. HISTORY: Shortness of breath FINDINGS: Left anterior chest wall pacemaker generator with right atrial and right ventricular leads. Median st ernotomy wires and post-CABG clips. Mild hyperinflation. Mild cardiomegaly. Diffuse interstitial dens ities and patchy/hazy densities in the mid and lower lungs slightly worsened from prior. IMPRESSION: 1. Findings are suggestive of diffuse pulmonary fibrosis. It 2. Patchy densities at the lung bases are slightly progressed from prior exam could represent atelect asis or early infiltrate. Correlate clinically to exclude mild superimposed venous congestion..
[2023-10-23 15:04] LABS: Basophils % (A) 1 %; Eosinophils # (A) 0.1 k/uL (0-0.7); Eosinophils % (A) 2 %; HCT 46.6 % (39.0-53.0); HGB 14.8 gm/dL (13.0-17.5); Lymphocytes # (A) 1.2 k/uL (1.0-4.8); Lymphocytes % (A) 19 %; MCH 35.9 pg (25.0-35.0); MCHC 31.7 g/dL (31.0-37.0); MCV 113.2 fL (80.0-100.0); Macrocytosis Marked; Mean Platelet Volume 11.4; Monocytes # (A) 0.6 k/uL (0-1.0); Monocytes % (A) 10 %; Neutrophils # (A) 4.5 k/uL (1.3-7.7); Neutrophils % (A) 68 %; Platelet Count 106 k/uL (150-450); RBC 4.12 m/uL (4.30-5.90); RDW 13.4 % (11.5-15.5); WBC 6.6 k/uL (3.8-10.6)
[2023-10-23 15:07] LABS: INR 1.4 (<1.2); Partial Thromboplastin Time 41.7 sec (22.0-30.0); Prothrombin Time 14.6 sec (10.0-12.5)
[2023-10-23 16:13] LABS: Appearance,Urine Clear (Clear); Bilirubin,Urine Negative (Negative); Blood,Urine Trace (Negative); Color,Urine Colorless; Glucose,Urine (UA) Negative (Negative); Hyaline Casts,Urine 1 /lpf (0-2); Ketones,Urine Negative (Negative); Leukocyte Esterase,Urine Negative (Negative); Mucus,Urine Rare /hpf; Nitrite,Urine Negative (Negative); PH, Urine 5.5 (5.0-8.0); Protein,Urine Trace (Negative); RBC,Urine 3 /hpf (0-5); Specific Gravity,Urine 1.009 (1.001-1.035); Urobilinogen,Urine <2.0 mg/dL (<2.0); WBC,Urine 1 /hpf (0-5)
[2023-10-23 18:21] LABS: ALT 22 U/L (4-49); African American GFR (CKD) 90 (>60 ml/min/1.73 sqM); Anion Gap 7 mmol/L; Blood Urea Nitrogen 28 mg/dL (9-20); Calcium 8.8 mg/dL (8.4-10.2); Carbon Dioxide 23 mmol/L (22-30); Chloride 105 mmol/L (98-107); Glucose 90 mg/dL (74-99); Non-African American GFR(CKD) 77 (>60 ml/min/1.73 sqM); Potassium 5.3 mmol/L (3.5-5.1); Sodium 135 mmol/L (137-145)
[2023-10-23 18:22] LABS: AST 56 U/L (17-59); Albumin 3.8 g/dL (3.5-5.0); Alkaline Phosphatase 223 U/L (38-126); Magnesium 1.9 mg/dL (1.6-2.3); Total Protein 7.5 g/dL (6.3-8.2)
[2023-10-23 18:29] LABS: NT-Pro-B-Type Natriuretic Pept 6700 pg/mL
[2023-10-23] MEDS: NITROGLYCERIN OINT 1 INCH/GM PACKET TOPICAL STA (20:03)
[2023-10-23] MEDS: FUROSEMIDE 10 MG/ML 4 ML VIAL IV STA (20:04)
--- NOTE | 2023-10-23 21:24 | P.HPIM ---
History of Present Illness H&P Date: 10/23/23 Chief Complaint: Short of breath very pleasant 88-year-old patient who follows Dr. Norman. Does live with his . Chronic stable medical conditions include coronary artery disease with coronary bypass, pacemaker, osteoarthritis, Patient presents feeling very very weak. Increasing lower extremity edema. Short of breath. Uses 1-2 pillows. Because of decreased appetite has lost close to 40 pounds. Uses oxygen 2 L at night. No cough. No fever no chills. In June of this year underwent EGD colonoscopy by Dr. Jules Curry was found to have mild gastritis and colonoscopy was unremarkable. Biopsy results were unremarkable. Review of systems: GEN.: Decreased appetite tired weight loss EYES: None HEENT: None NECK: None RESPIRATORY: As above CARDIOVASCULAR: As above GASTROINTESTINAL: GENITOURINARY: None MUSCULOSKELETAL: Joint pains LYMPHATICS: None HEMATOLOGICAL: None PSYCHIATRY: None NEUROLOGICAL: Uses a cane and a walker e Social history: Lives with his . Non-smoker. No alcohol. Retired Physical examination: VITAL SIGNS: 97.6, 70, 16, 109 x 61, 93% on 2 L GENERAL: Laying in bed, tired EYES: Pupils equal. Conjunctiva tommy l. HEENT: External appearance of nose and ears normal, oral cavity grossly normal. NECK: JVD raised; masses not palpable. HEART: First and second heart sounds are normal; significant edema LUNGS: Respiratory rate increased, bilateral crackles ABDOMEN: Soft, nontender, liver spleen not palpable, no masses palpable. PSYCH: Alert and oriented x3; mood and affect tired. MUSCULOSKELETAL:No Clubbing/cyanosis;muscles-grossly intact. OA NEUROLOGICAL: Cranial nerves grossly intact. Power sensation grossly intact INVESTIGATIONS, reviewed in the clinical context: October 23, 2023: White count 6.6 hemoglobin 14.8 platelets 106 sodium 135 potassium 5.3 creatinine 0.88 Troponin I 0.031 proBNP 6700 Influenza type a type B RSV COVID-19: Not detected EKG tracing personally reviewed by me-possible atrial flutter with variable ventricular paced rhythm Chest x-ray film personally reviewed by me-cardiomegaly, pulm edema June 2023 EGD colonoscopy: Unremarkable Total PSA 2.3. June 26: White count 8.4 hemoglobin 16.2 platelets 236 sodium 135 potassium 5.2 creatinine is 1.0 Alpha-fetoprotein: Less than 3 CEA antigen 5.2 TSH 0.246. Free T41.85. Procalcitonin 0.07 Influenza type A, type B, RSV, COVID-19: Not detected CT chest abdomen pelvis with and without contrast: Scattered interstitial changes throughout the lungs bilaterally. Heart is enlarged. Coronary calcification. Moderate sigmoid colon diverticulosis. Prostate is significantly enlarged. Previous labs: 2D echocardiogram April 22, 2023: EF 55%. Calcified aortic valve. Assessment and plan: -Acute on chronic congestive heart failure exacerbation from diastolic dysfunction EF 55% Bumex IV 0.25 twice daily. Strict I's and O's. Fluid restriction 1800 cc a day. -History of weight loss loss of appetite. Patient workup is included PSA, EGD colonoscopy. All have been negative. -Essential hypertension Toprol-XL. Hyperlipidemia Lipitor 40 mg nightly -Chronic gait dysfunction uses a walker -BPH Flomax Full code Discussed with patient. 2D echo. Past Medical History Past Medical History: Coronary Artery Disease (CAD), Heart Failure History of Any Multi-Drug Resistant Organisms: None Reported Past Surgical History: Appendectomy, Coronary Bypass/CABG, Pacemaker Additional Past Surgical History / Comment(s): rt hip surgery 1986 Past Anesthesia/Blood Transfusion Reactions: No Reported Reaction Type of Cardiac Device: Permanent Pacemaker Device Placement Date:: unknown Past Psychological History: No Psychological Hx Reported Smoking Status: Never smoker Past Alcohol Use History: None Reported Past Drug Use History: None Reported Medications and Allergies Home Medications Medication Instructions Recorded Confirmed Type Aspirin 81 mg PO DAILY #90 tab 04/24/23 10/23/23 Rx Metoprolol Succinate (ER) [Toprol 25 mg PO DAILY #90 tab 04/24/23 10/23/23 Rx XL] Adthyza 130mg 130 mg PO AC-BRKFST 06/25/23 10/23/23 History Dabigatran Etexilate Mesylate 150 mg PO DAILY 06/25/23 10/23/23 History [Dabigatran Etexilate] Atorvastatin [Lipitor] 40 mg PO DAILY 10/23/23 10/23/23 History Bumetanide [Bumex] 1 mg PO DAILY 10/23/23 10/23/23 History Tamsulosin [Flomax] 0.4 mg PO DAILY 10/23/23 10/23/23 History Allergies Allergy/AdvReac Type Severity Reaction Status Date / Time No Known Allergies Allergy Verified 10/23/23 20:52 Physical Exam Vitals: Vital Signs Temp Pulse Resp BP Pulse Ox 10/23/23 20:10 70 16 109/61 93 L 10/23/23 19:41 71 16 118/68 92 L 10/23/23 14:14 97.6 F 73 16 133/87 96 Intake and Output 10/23/23 10/23/23 10/23/23 06:59 14:59 22:59 Other: Weight 83.461 kg Results CBC & Chem 7: 10/23/23 14:21 10/23/23 17:55 Labs: Abnormal Lab Results - Last 24 Hours (Table) 10/23/23 10/23/23 10/23/23 Range/Units 14:21 14:21 15:21 RBC 4.12 L (4.30-5.90) m/uL MCV 113.2 H (80.0-100.0) fL MCH 35.9 H (25.0-35.0) pg Plt Count 106 L (150-450) k/uL Macrocytosis Marked A PT 14.6 H (10.0-12.5) sec INR 1.4 H (<1.2) APTT 41.7 H (22.0-30.0) sec Sodium (137-145) mmol/L Potassium (3.5-5.1) mmol/L BUN (9-20) mg/dL Total Bilirubin (0.2-1.3) mg/dL Alkaline Phosphatase (38-126) U/L Urine Protein Trace H (Negative) Urine Blood Trace H (Negative) Urine Mucus Rare H (None) /hpf 10/23/23 Range/Units 17:55 RBC (4.30-5.90) m/uL MCV (80.0-100.0) fL MCH (25.0-35.0) pg Plt Count (150-450) k/uL Macrocytosis PT (10.0-12.5) sec INR (<1.2) APTT (22.0-30.0) sec Sodium 135 L (137-145) mmol/L Potassium 5.3 H (3.5-5.1) mmol/L BUN 28 H (9-20) mg/dL Total Bilirubin 2.0 H (0.2-1.3) mg/dL Alkaline Phosphatase 223 H (38-126) U/L Urine Protein (Negative) Urine Blood (Negative) Urine Mucus (None) /hpf
[2023-10-23] MEDS: BUMETANIDE 0.25 MG/ML 10 ML VIAL IV SCH (22:48)
[2023-10-24] MEDS ORDERED: NITROGLYCERIN OINT 1 INCH/GM PACKET TOPICAL SCH
[2023-10-24] MEDS ORDERED: FUROSEMIDE 40 MG TAB PO SCH
[2023-10-24 09:12] LABS: African American GFR (CKD) 89 (>60 ml/min/1.73 sqM); Anion Gap 5 mmol/L; Blood Urea Nitrogen 27 mg/dL (9-20); Calcium 8.6 mg/dL (8.4-10.2); Carbon Dioxide 26 mmol/L (22-30); Chloride 105 mmol/L (98-107); Glucose 78 mg/dL (74-99); Non-African American GFR(CKD) 77 (>60 ml/min/1.73 sqM); Potassium 3.9 mmol/L (3.5-5.1); Sodium 136 mmol/L (137-145)
[2023-10-24] MEDS: METOPROLOL SUCCINATE (ER) 25 MG TAB.ER.24H PO SCH (09:22)
[2023-10-24] MEDS: ATORVASTATIN 40 MG TAB PO SCH (09:22)
[2023-10-24] MEDS: TAMSULOSIN 0.4 MG CAP.ER.24H PO SCH (09:22)
[2023-10-24] MEDS: DABIGATRAN 150 MG CAP PO SCH (09:23)
[2023-10-24] MEDS: ASPIRIN 81 MG PO SCH (09:23)
--- NOTE | 2023-10-24 14:55 | P.CRDCN ---
History of Present Illness Consult date: 10/24/23 History of present illness: HISTORY OF PRESENTING ILLNESS Patient is a 88-year-old patient known to Dr. Edwards for cardiology care. He got established with cardiology care in [place] in April 2023 when he got admitted for acute CHF exacerbation and A-fib RVR and type II NSTEMI. Previously used to get his care in [place]. This time he presented to the hospital because of increased worsening shortness of breath, dyspnea on exertion. Increased fatigue. He also endorsed symptoms of orthopnea and paroxysmal nocturnal dyspnea. He also reports increased swelling in bilateral lower extremity Patient reports compliance to his medication denies missing his diuretic medications. He denies using excessive salty foods. Admission ECG shows atrial fibrillation with LV paced rhythm. REVIEW OF SYSTEMS 14 point review of system is negative except what is mentioned above in HPI. PHYSICAL EXAMINATION Vital signs reviewed. Head: Normocephalic. Eyes: Sclerae nonicteric. Neck: Brisk carotid upstroke, elevated jugular venous distention. Lungs: Respiratory effort, mild crackles audible Heart: Irregular rhythm, S1-S2, systolic murmur audible Abdomen: Soft nontender, Extremities:2+ edema, Neuro: Alert, oritented, no focal deficits. Detailed neuro exam was not performed. ASSESSMENT Acute on chronic HFpEF exacerbation Chronic atrial fibrillation, on rate control strategy, failed rhythm control in the past CAD s/p CABG 2012 Sick sinus syndrome status post PPM Aortic stenosis Hypothyroidism Thrombocytopenia with macrocytosis Cardiac testing Echo from April 2023 shows EF 55%, grade 3 diastolic dysfunction, moderate RV dilatation with RVSP 46 mmHg, moderate LA dilatation with elevated LA filling pressures, moderate aortic valve calcification with mild stenosis milligram 16 mmHg Outpatient Lexiscan MPI showed mild reversible perfusion defect with preserved LV systolic function. Patient has a prior history of CABG and they did not want invasive interventions therefore no heart cath was performed. Decision was made to treat his mild reversible perfusion defect with optimization of antianginals. PLAN Continue aspirin 81 mg, atorvastatin 40 mg He is on Bumex 1 mg p.o. twice daily at home. Change Bumex to IV 1 mg p.o. twice daily Continue metoprolol succinate 25 mg daily Start Aldactone 12.5 mg daily. Uptitrate as tolerated BP is low normal, cannot start ARB Patient would benefit from SGLT2 but patient has poor insurance coverage Continue Pradaxa 150 mg twice daily for anticoagulation for A-fib Outpatient hematology follow-up for thrombocytopenia and macrocytosis Geoffrey Edwards MD, FACC, RPVI Thank you for allowing [facility] to participate in this patient's care. Feel free to reach out in case of any followup questions. Past Medical History Past Medical History: Coronary Artery Disease (CAD), Heart Failure History of Any Multi-Drug Resistant Organisms: None Reported Past Surgical History: Appendectomy, Coronary Bypass/CABG, Pacemaker Additional Past Surgical History / Comment(s): rt hip surgery 1986 Past Anesthesia/Blood Transfusion Reactions: No Reported Reaction Type of Cardiac Device: Permanent Pacemaker Device Placement Date:: unknown Past Psychological History: No Psychological Hx Reported Smoking Status: Never smoker Past Alcohol Use History: None Reported Past Drug Use History: None Reported Medications and Allergies Home Medications Medication Instructions Recorded Confirmed Type Aspirin 81 mg PO DAILY #90 tab 04/24/23 10/23/23 Rx Metoprolol Succinate (ER) [Toprol 25 mg PO DAILY #90 tab 04/24/23 10/23/23 Rx XL] Adthyza 130mg 130 mg PO AC-BRKFST 06/25/23 10/23/23 History Dabigatran Etexilate Mesylate 150 mg PO DAILY 06/25/23 10/23/23 History [Dabigatran Etexilate] Atorvastatin [Lipitor] 40 mg PO DAILY 10/23/23 10/23/23 History Bumetanide [Bumex] 1 mg PO DAILY 10/23/23 10/23/23 History Tamsulosin [Flomax] 0.4 mg PO DAILY 10/23/23 10/23/23 History Allergies Allergy/AdvReac Type Severity Reaction Status Date / Time No Known Allergies Allergy Verified 10/23/23 20:52 Physical Exam Vitals: Vital Signs Pulse Resp BP BP Pulse Ox 10/24/23 12:00 16 104/75 96 10/24/23 08:00 16 104/62 100 10/24/23 06:53 71 16 110/74 100 10/24/23 04:00 75 16 103/78 95 10/24/23 01:00 71 16 129/61 99 10/23/23 22:12 70 16 113/86 100 10/23/23 20:10 70 16 109/61 93 L 10/23/23 19:41 71 16 118/68 92 L Intake and Output 10/23/23 10/24/23 10/24/23 22:59 06:59 14:59 Output Total 1000 Balance -1000 Output: Urine 1000 Other: Voiding Method External Catheter Results 10/23/23 14:21 10/24/23 08:01 Cardiac Enzymes 10/23/23 10/23/23 Range/Units 17:55 17:55 AST 56 (17-59) U/L Troponin I 0.031 (0.000-0.034) ng/mL Coagulation 10/23/23 Range/Units 14:21 PT 14.6 H (10.0-12.5) sec APTT 41.7 H (22.0-30.0) sec CBC 10/23/23 Range/Units 14:21 WBC 6.6 (3.8-10.6) k/uL RBC 4.12 L (4.30-5.90) m/uL Hgb 14.8 (13.0-17.5) gm/dL Hct 46.6 (39.0-53.0) % Plt Count 106 L (150-450) k/uL Comprehensive Metabolic Panel 10/23/23 10/24/23 Range/Units 17:55 08:01 Sodium 135 L 136 L (137-145) mmol/L Potassium 5.3 H 3.9 (3.5-5.1) mmol/L Chloride 105 105 (98-107) mmol/L Carbon Dioxide 23 26 (22-30) mmol/L BUN 28 H 27 H (9-20) mg/dL Creatinine 0.88 0.89 (0.66-1.25) mg/dL Glucose 90 78 (74-99) mg/dL Calcium 8.8 8.6 (8.4-10.2) mg/dL AST 56 (17-59) U/L ALT 22 (4-49) U/L Alkaline Phosphatase 223 H (38-126) U/L Total Protein 7.5 (6.3-8.2) g/dL Albumin 3.8 (3.5-5.0) g/dL Current Medications Generic Name Dose Route Start Last Admin Trade Name Freq PRN Reason Stop Dose Admin Aspirin 81 mg 10/24/23 09:00 10/24/23 09:23 Aspirin 81 Mg PO 81 mg DAILY EDWARD Administration Atorvastatin Calcium 40 mg 10/24/23 09:00 10/24/23 09:22 Atorvastatin 40 Mg Tab PO 40 mg DAILY EDWARD Administration Bumetanide 1 mg 10/24/23 12:52 Bumetanide 0.25 Mg/Ml 10 Ml Vial IV Q12HR [facility] Dabigatran 150 mg 10/24/23 09:00 10/24/23 09:23 Dabigatran 150 Mg Cap PO 150 mg DAILY EDWARD Administration Protocol Metoprolol Succinate 25 mg 10/24/23 09:00 10/24/23 09:22 Metoprolol Succinate (Er) 25 Mg Tab.Er.24h PO 25 mg DAILY EDWARD Administration Spironolactone 12.5 mg 10/24/23 13:00 Spironolactone 25 Mg Tab PO DAILY [facility] Tamsulosin HCl 0.4 mg 10/24/23 09:00 10/24/23 09:22 Tamsulosin 0.4 Mg Cap.Er.24h PO 0.4 mg DAILY EDWARD Administration Intake and Output 10/23/23 10/24/23 10/24/23 22:59 06:59 14:59 Output Total 1000 Balance -1000 Output: Urine 1000 Other: Voiding Method External Catheter 10/23/23 14:21 10/24/23 08:01
--- NOTE | 2023-10-24 15:33 | P.PN ---
Progress Note - Text Progress Note Date: 10/24/23 Chief Complaint: Short of breath very pleasant 88-year-old patient who follows Dr. Norman. Does live with his . Chronic stable medical conditions include coronary artery disease with coronary bypass, pacemaker, osteoarthritis, Patient presents feeling very very weak. Increasing lower extremity edema. Short of breath. Uses 1-2 pillows. Because of decreased appetite has lost close to 40 pounds. Uses oxygen 2 L at night. No cough. No fever no chills. In June of this year underwent EGD colonoscopy by Dr. Jules Curry was found to have mild gastritis and colonoscopy was unremarkable. Biopsy results were unremarkable. October 23: Admitted with CHF exacerbation. Seen by cardiology today. Bumex increased to 1 mg every 12. I's and O's was not well-documented. Making good urine. Breathing a bit better. Echo from today pending. Did eat some food. Active Medications Aspirin (Aspirin 81 Mg) 81 mg PO DAILY [facility] Last Admin: 10/24/23 09:23 Dose: 81 mg Atorvastatin Calcium (Atorvastatin 40 Mg Tab) 40 mg PO DAILY [facility] Last Admin: 10/24/23 09:22 Dose: 40 mg Bumetanide (Bumetanide 0.25 Mg/Ml 10 Ml Vial) 1 mg IV Q12HR [facility] Dabigatran (Dabigatran 150 Mg Cap) 150 mg PO DAILY [facility]; Protocol Last Admin: 10/24/23 09:23 Dose: 150 mg Metoprolol Succinate (Metoprolol Succinate (Er) 25 Mg Tab.Er.24h) 25 mg PO DAILY [facility] Last Admin: 10/24/23 09:22 Dose: 25 mg Spironolactone (Spironolactone 25 Mg Tab) 12.5 mg PO DAILY [facility] Tamsulosin HCl (Tamsulosin 0.4 Mg Cap.Er.24h) 0.4 mg PO DAILY [facility] Last Admin: 10/24/23 09:22 Dose: 0.4 mg Social history: Lives with his . Non-smoker. No alcohol. Retired Physical examination: VITAL SIGNS: Afebrile, 75, 16, 103 x 78, 95% on 2 L GENERAL: Laying in bed, tired EYES: Pupils equal. Conjunctiva tommy l. HEENT: External appearance of nose and ears normal, oral cavity grossly normal. NECK: JVD raised; masses not palpable. HEART: Heart sounds are irregular; significant edema LUNGS: Respiratory rate increased, bilateral crackles ABDOMEN: Soft, nontender, liver spleen not palpable, no masses palpable. PSYCH: Alert and oriented x3; mood and affect tired. MUSCULOSKELETAL:No Clubbing/cyanosis;muscles-grossly intact. OA NEUROLOGICAL: Cranial nerves grossly intact. Power sensation grossly intact INVESTIGATIONS, reviewed in the clinical context: October 23: Potassium 3.9 creatinine 0.89 October 23, 2023: White count 6.6 hemoglobin 14.8 platelets 106 sodium 135 potassium 5.3 creatinine 0.88 Troponin I 0.031 proBNP 6700 Influenza type a type B RSV COVID-19: Not detected EKG tracing personally reviewed by me-possible atrial flutter with variable ventricular paced rhythm Chest x-ray film personally reviewed by me-cardiomegaly, pulm edema June 2023 EGD colonoscopy: Unremarkable Total PSA 2.3. June 26: White count 8.4 hemoglobin 16.2 platelets 236 sodium 135 potassium 5.2 creatinine is 1.0 Alpha-fetoprotein: Less than 3 CEA antigen 5.2 TSH 0.246. Free T41.85. Procalcitonin 0.07 Influenza type A, type B, RSV, COVID-19: Not detected CT chest abdomen pelvis with and without contrast: Scattered interstitial changes throughout the lungs bilaterally. Heart is enlarged. Coronary calcification. Moderate sigmoid colon diverticulosis. Prostate is significantly enlarged. Previous labs: 2D echocardiogram April 22, 2023: EF 55%. Calcified aortic valve. Assessment and plan: -Acute on chronic congestive heart failure exacerbation from preserved ejection fraction EF 55%: Uncontrolled Bumex IV 0.25 twice daily. Strict I's and O's. Fluid restriction 1800 cc a day. -History of weight loss loss of appetite. Patient workup is included PSA, EGD colonoscopy. All have been negative. -Essential hypertension Toprol-XL. Hyperlipidemia Lipitor 40 mg nightly -Chronic gait dysfunction uses a walker -BPH Flomax Full code Disc with patient. Follow labs. Pending 2D echo. Past Medical History Past Medical History: Coronary Artery Disease (CAD), Heart Failure History of Any Multi-Drug Resistant Organisms: None Reported Past Surgical History: Appendectomy, Coronary Bypass/CABG, Pacemaker Additional Past Surgical History / Comment(s): rt hip surgery 1986 Past Anesthesia/Blood Transfusion Reactions: No Reported Reaction Type of Cardiac Device: Permanent Pacemaker Device Placement Date:: unknown Past Psychological History: No Psychological Hx Reported Smoking Status: Never smoker Past Alcohol Use History: None Reported Past Drug Use History: None Reported
[2023-10-24] MEDS: SPIRONOLACTONE 25 MG TAB PO SCH (16:43)
[2023-10-24] MEDS: BUMETANIDE 0.25 MG/ML 10 ML VIAL IV SCH (16:43)
--- NOTE | 2023-10-24 19:11 | CA ---
Transthoracic Echo Report Name: Lee Rodriguez Age: 88 Gender: M : 1935 Exam Date: 10/24/2023 10:32 Exam Location: [facility] Ht (in): 72 Wt (lb): 184 Ordering Physician: Oswaldo Orr MD Attending/Referring Phys: [employer] Cut Saw Operator Yeni Victoria RDCS Procedure CPT: Indications: chf Cardiac Hx: Technical Quality: Technically difficult study Contrast 1: Definity Total Dose (mL): 2 Contrast 2: Total Dose (mL): MEASUREMENTS (Male / Female) Normal Values 2D ECHO LV Diastolic Diameter PLAX 4.4 cm 4.2 - 5.9 / 3.9 - 5.3 cm LV Systolic Diameter PLAX 3.0 cm IVS Diastolic Thickness 1.1 cm 0.6 - 1.0 / 0.6 - 0.9 cm LVPW Diastolic Thickness 1.2 cm 0.6 - 1.0 / 0.6 - 0.9 cm LV Relative Wall Thickness 0.5 RV Internal Dim ED PLAX 4.0 cm LVOT Diameter 2.5 cm LV Diastolic Volume MOD BP 101.4 cm??? 67 - 155 / 56 - 104 cm??? LV Systolic Volume MOD BP 52.3 cm??? 22 - 58 / 19 - 49 cm??? LV Ejection Fraction MOD BP 48.5 % >= 55 % LV Cardiac Index MOD BP 1665.8 cm???/min???m??? LV Diastolic Volume MOD 4C 93.5 cm??? LV Systolic Volume MOD 4C 56.5 cm??? LV Ejection Fraction MOD 4C 39.6 % LV Cardiac Index MOD 4C 1253.0 cm???/min???m??? LV Diastolic Length 4C 7.9 cm LV Systolic Length 4C 7.4 cm LV Diastolic Volume MOD 2C 102.8 cm??? LV Systolic Volume MOD 2C 45.0 cm??? LV Ejection Fraction MOD 2C 56.3 % LV Cardiac Index MOD 2C 1959.6 cm???/min???m??? LV Diastolic Length 2C 8.4 cm LV Systolic Length 2C 8.0 cm Ascending Aorta Diameter 3.5 cm DOPPLER TR Peak Velocity 295.8 cm/s TR Peak Gradient 35.0 mmHg Right Atrial Pressure 20.0 mmHg Pulmonary Artery Systolic Pressu 55.0 mmHg Right Ventricular Systolic Press 55.0 mmHg PV Peak Velocity 107.2 cm/s PV Peak Gradient 4.6 mmHg FINDINGS Left Ventricle Left ventricular ejection fraction is estimated at 40-45 %. Mildly decreased left ventricular ejection fraction. Left ventricular cavity size normal. Left ventricular wall thickness normal. Apical inferoseptal wall hypokinesia. Paradoxical septal motion Right Ventricle Mild right ventricular dilatation with mildly reduced function. Moderately elevated right ventricular systolic pressure. Right Atrium Mild right atrial dilatation. Catheter/pacemaker wire in the right atrial cavity. Left Atrium Mildly increased left atrial area. Mitral Valve Mitral valve thickened. Mitral annular calcification. No evidence for mitral valve prolapse. Minimal mitral stenosis. Moderate eccentric mitral regurgitation. Posteriorly directed eccentric mitral regurgitation jet. No systolic flow reversal in the pulmonary veins. Aortic Valve Diffuse thickening of the aortic valve cusps with reduced excursion. Unable to estimate aortic stenosis due to limited imaging windows, appears to be stenotic. Tricuspid Valve Structurally normal tricuspid valve. No tricuspid stenosis. Moderate tricuspid regurgitation. Central jet of tricuspid regurgitation. Pulmonic Valve Structurally normal pulmonic valve. No pulmonic stenosis. No pulmonic regurgitation. Pericardium No pericardial effusion. Aorta Normal size aortic root and proximal ascending aorta. CONCLUSIONS Left ventricular ejection fraction is estimated at 40-45 %. Apical inferoseptal wall hypokinesia. Paradoxical septal motion. Moderately elevated right ventricular systolic pressure. RSVP 55 mmHg PPM wire in RA and RV Moderate eccentric mitral regurgitation, severely dilated jet. EROA 0.3 cm???, regurg volume 51 mL Calcific aortic valve, unable to estimate gradients Moderate TR Dilated inferior vena cava with no respiratory variation. Previewed by: Dr Geoffrey Edwards (Electronically Signed) Final Date: 24 October 2023 19:10
[2023-10-25 10:38] LABS: African American GFR (CKD) >90 (>60 ml/min/1.73 sqM); Anion Gap 6 mmol/L; Blood Urea Nitrogen 25 mg/dL (9-20); Calcium 8.6 mg/dL (8.4-10.2); Carbon Dioxide 29 mmol/L (22-30); Chloride 101 mmol/L (98-107); Glucose 107 mg/dL (74-99); Non-African American GFR(CKD) 79 (>60 ml/min/1.73 sqM); Potassium 3.8 mmol/L (3.5-5.1); Sodium 136 mmol/L (137-145)
[2023-10-25 12:35] VITALS: BMI 24.9
--- NOTE | 2023-10-25 13:28 | P.PN ---
Subjective Progress Note Date: 10/25/23 88-year-old patient who follows Dr. Norman. Does live with his . Chronic stable medical conditions include coronary artery disease with coronary bypass, pacemaker, osteoarthritis, Patient presents feeling very very weak. Increasing lower extremity edema. Short of breath. Uses 1-2 pillows. Because of decreased appetite has lost close to 40 pounds. Uses oxygen 2 L at night. No cough. No fever no chills. In June of this year underwent EGD colonoscopy by Dr. Jules Curry was found to have mild gastritis and colonoscopy was unremarkable. Biopsy results were unremarkable. 10/24. Patient seen and examined. Currently on room air. States he feels better. Breathing is improved REVIEW OF SYSTEMS: CONSTITUTIONAL: No fever, no malaise,. CARDIOVASCULAR: No chest pain, no palpitations, no syncope. PULMONARY: No shortness of breath, no cough, GASTROINTESTINAL: No diarrhea, no nausea, no vomiting, no abdominal pain. NEUROLOGICAL: No headaches, no weakness, PHYSICAL EXAMINATION: GENERAL: The patient is alert and oriented x3, not in any acute distress. Well developed, well nourished. HEENT: Pupils are round and equally reacting to light. EOMI. No scleral icterus. No conjunctival pallor. Normocephalic, atraumatic. No pharyngeal erythema. No thyromegaly. CARDIOVASCULAR: S1 and S2 present. No murmurs, rubs, or gallops. PULMONARY: Chest is clear to auscultation, no wheezing or crackles. ABDOMEN: Soft, nontender, nondistended, normoactive bowel sounds. No palpable organomegaly. MUSCULOSKELETAL: No joint swelling or deformity. EXTREMITIES: No cyanosis, clubbing, or pedal edema. NEUROLOGICAL: Gross neurological examination did not reveal any focal deficits. SKIN: No rashes. Assessment and plan Acute on chronic congestive heart failure exacerbation from preserved ejection fraction EF 55%: -History of weight loss loss of appetite. -Essential hypertension Hyperlipidemia -Chronic gait dysfunction uses a walker -BPH Monitor vital signs Monitor CBC Monitor CMP Continue telemetry monitoring Encourage use of incentive spirometer Strict I's and O's, daily weights, continue IV Bumex 1 mg every 12 Continue aspirin, Pradaxa Continue Toprol-XL continue Aldactone Cardiology following Labs and medication were reviewed.. Continue same treatment. Continue with symptomatic treatment. Resume home medication. Monitor labs and vitals. DVT and GI prophylaxis. Further recommendations as per clinical course of the patient Dictation was produced using [employer] dictation software. please excuse any grammatical, word or spelling errors. Objective - Vital Signs Vital signs: Vital Signs Temp 97.5 F L 10/25/23 08:00 Pulse 77 10/25/23 08:00 Resp 18 10/25/23 08:00 BP 111/66 10/25/23 08:00 Pulse Ox 91 L 10/25/23 09:34 FiO2 Intake & Output 10/24/23 10/25/23 10/25/23 18:59 06:59 18:59 Intake Total 240 Output Total 1000 Balance -1000 240 Intake: Oral 240 Output: Urine 1000 Other: Voiding Method External Catheter External Catheter Toilet Urinal # Voids 1 # Bowel Movements 1 - Labs CBC & Chem 7: 10/23/23 14:21 10/25/23 08:54
--- NOTE | 2023-10-25 15:37 | P.PN ---
Subjective Progress Note Date: 10/25/23 Progress note October 25, 2023 No new overnight events. Denies any chest pain. Reports shortness of breath has improved. On exam his lower extremity swelling has improved. Good urine output. BP 92/52, heart rate 70 bpm, atrial fibrillation is a rhythm with V paced rhythm. On telemetry Sodium 136, BUN 25, creatinine 0.8 HISTORY OF PRESENTING ILLNESS Patient is a 88-year-old patient known to Dr. Edwards for cardiology care. He got established with cardiology care in [place] in April 2023 when he got admitted for acute CHF exacerbation and A-fib RVR and type II NSTEMI. Previously used to get his care in [place]. This time he presented to the hospital because of increased worsening shortness of breath, dyspnea on exertion. Increased fatigue. He also endorsed symptoms of orthopnea and paroxysmal nocturnal dyspnea. He also reports increased swelling in bilateral lower extremity Patient reports compliance to his medication denies missing his diuretic medications. He denies using excessive salty foods. Admission ECG shows atrial fibrillation with LV paced rhythm. REVIEW OF SYSTEMS 14 point review of system is negative except what is mentioned above in HPI. PHYSICAL EXAMINATION Vital signs reviewed. Head: Normocephalic. Eyes: Sclerae nonicteric. Neck: Brisk carotid upstroke, elevated jugular venous distention. Lungs: Respiratory effort, mild crackles audible Heart: Irregular rhythm, S1-S2, systolic murmur audible Abdomen: Soft nontender, Extremities:2+ edema, Neuro: Alert, oritented, no focal deficits. Detailed neuro exam was not performed. ASSESSMENT Acute on chronic HFpEF exacerbation Chronic atrial fibrillation, on rate control strategy, failed rhythm control in the past CAD s/p CABG 2012 Sick sinus syndrome status post PPM Aortic stenosis Hypothyroidism Thrombocytopenia with macrocytosis Cardiac testing Echo from April 2023 shows EF 55%, grade 3 diastolic dysfunction, moderate RV dilatation with RVSP 46 mmHg, moderate LA dilatation with elevated LA filling pressures, moderate aortic valve calcification with mild stenosis milligram 16 mmHg Outpatient Lexiscan MPI showed mild reversible perfusion defect with preserved LV systolic function. Patient has a prior history of CABG and they did not want invasive interventions therefore no heart cath was performed. Decision was made to treat his mild reversible perfusion defect with optimization of antianginals. PLAN Continue aspirin 81 mg, atorvastatin 40 mg He is on Bumex 1 mg p.o. twice daily at home. Change Bumex to IV 1 mg p.o. twice daily. Consider transitioning to p.o. tomorrow Continue metoprolol succinate 25 mg daily Increase Aldactone to 25 mg daily BP is low normal, cannot start ARB Patient would benefit from SGLT2 but patient has poor insurance coverage Continue Pradaxa 150 mg twice daily for anticoagulation for A-fib Outpatient hematology follow-up for thrombocytopenia and macrocytosis Anticipate possible discharge tomorrow Geoffrey Edwards MD, FACC, RPVI Thank you for allowing [facility] to participate in this patient's care. Feel free to reach out in case of any followup questions. Objective - Vital Signs Vital signs: Vital Signs Temp 97.5 F L 10/25/23 08:00 Pulse 70 10/25/23 11:50 Resp 16 10/25/23 11:50 BP 92/52 10/25/23 11:50 Pulse Ox 95 10/25/23 11:50 FiO2 Intake & Output 10/24/23 10/25/23 10/25/23 18:59 06:59 18:59 Intake Total 350 Output Total 1000 600 Balance -1000 -250 Weight 83.461 kg Intake: Oral 350 Output: Urine 1000 600 Other: Voiding Method External Catheter External Catheter Toilet Urinal # Voids 1 # Bowel Movements 1 - Labs CBC & Chem 7: 10/23/23 14:21 10/25/23 08:54 Labs: Abnormal Lab Results - Last 24 Hours (Table) 10/25/23 Range/Units 08:54 Sodium 136 L (137-145) mmol/L BUN 25 H (9-20) mg/dL Glucose 107 H (74-99) mg/dL
[2023-10-26] MEDS: SPIRONOLACTONE 25 MG TAB PO SCH (07:42)
[2023-10-26 09:04] VITALS: TEMP 97.5
[2023-10-26 11:24] VITALS: BP 112/72; PULSE 70; RESP 17
--- NOTE | 2023-10-26 12:33 | P.DS ---
Providers Date of admission: 10/23/23 19:36 Expected date of discharge: 10/26/23 Attending physician: Oswaldo Orr Consults: 10/23/23 19:32 Consult Physician Routine Consulting Provider: [facility] Consult Reason/Comments: Pulmonary edema Do you want consulting provider notified?: Yes Primary care physician: Inocencio Norman [place] [facility] Course: Discharge diagnoses; Acute on chronic congestive heart failure exacerbation from preserved ejection fraction EF 55%: -History of weight loss loss of appetite. -Essential hypertension Hyperlipidemia -Chronic gait dysfunction uses a walker -[facility] Hospital course; 88-year-old patient who follows Dr. Norman. Does live with his . Chronic stable medical conditions include coronary artery disease with coronary bypass, pacemaker, osteoarthritis, Patient presents feeling very very weak. Increasing lower extremity edema. Short of breath. Uses 1-2 pillows. Because of decreased appetite has lost close to 40 pounds. Uses oxygen 2 L at night. No cough. No fever no chills. In June of this year underwent EGD colonoscopy by Dr. Jules Curry was found to have mild gastritis and colonoscopy was unremarkable. Biopsy results were unremarkable. 10/24. Patient seen and examined. Currently on room air. States he feels better. Breathing is improved 10/25. Patient seen and examined. Cardiology recommended transitioning patient to Bumex 1 mg twice a day. Cardiology cleared the patient for discharge PHYSICAL EXAMINATION: GENERAL: The patient is alert and oriented x3, not in any acute distress. Well developed, well nourished. HEENT: Pupils are round and equally reacting to light. EOMI. No scleral icterus. No conjunctival pallor. Normocephalic, atraumatic. No pharyngeal erythema. No thyromegaly. CARDIOVASCULAR: S1 and S2 present. No murmurs, rubs, or gallops. PULMONARY: Chest is clear to auscultation, no wheezing or crackles. ABDOMEN: Soft, nontender, nondistended, normoactive bowel sounds. No palpable organomegaly. MUSCULOSKELETAL: No joint swelling or deformity. EXTREMITIES: No cyanosis, clubbing, or pedal edema. NEUROLOGICAL: Gross neurological examination did not reveal any focal deficits. SKIN: No rashes. Dictation was produced using [employer]obi[employer] software. please excuse any grammatical, word or spelling errors. Patient Condition at Discharge: Fair Plan - Discharge Summary Discharge Rx Participant: No New Discharge Prescriptions: New Spironolactone [Aldactone] 25 mg PO DAILY 30 Days #30 tab Continue Dabigatran Etexilate Mesylate [Dabigatran Etexilate] 150 mg PO DAILY Adthyza 130mg 130 mg PO [facility] Tamsulosin [Flomax] 0.4 mg PO DAILY Aspirin 81 mg PO DAILY #90 tab Metoprolol Succinate (ER) [Toprol XL] 25 mg PO DAILY #90 tab Atorvastatin [Lipitor] 40 mg PO DAILY Changed Bumetanide [BUMEX] 1 mg PO BID #60 tab Discharge Medication List Aspirin 81 mg PO DAILY #90 tab 04/24/23 [Rx] Metoprolol Succinate (ER) [Toprol XL] 25 mg PO DAILY #90 tab 04/24/23 [Rx] Adthyza 130mg 130 mg PO -BRKFST 06/25/23 [History] Dabigatran Etexilate Mesylate [Dabigatran Etexilate] 150 mg PO DAILY 06/25/23 [History] Atorvastatin [Lipitor] 40 mg PO DAILY 10/23/23 [History] Tamsulosin [Flomax] 0.4 mg PO DAILY 10/23/23 [History] Bumetanide [BUMEX] 1 mg PO BID #60 tab 10/26/23 [Rx] Spironolactone [Aldactone] 25 mg PO DAILY 30 Days #30 tab 10/26/23 [Rx] Follow up Appointment(s)/Referral(s): Geoffrey Edwards MD [Medical Doctor] - 1 Week Inocencio Norman DO [Primary Care Provider] - 1-2 days Discharge Disposition: HOME SELF-CARE
== END 2023-10-26 14:24 | disposition home or self-care (01) | DRG 280 ==
LOC: EC 14:12 → 1SOBS 19:36 → 3SCARD 23:12
PROVIDERS: ADMIT Hospitalist; ATTEND Hospitalist
DX: I11.0 Hypertensive heart disease with heart failure (principal); I50.33 Acute on chronic diastolic (congestive) heart failure; I21.A1 Myocardial infarction type 2; I48.20 Chronic atrial fibrillation, unspecified; E78.5 Hyperlipidemia, unspecified; E03.9 Hypothyroidism, unspecified; Z79.890 Hormone replacement therapy; I25.10 Atherosclerotic heart disease of native coronary artery without angina pectoris; M19.90 Unspecified osteoarthritis, unspecified site; D69.6 Thrombocytopenia, unspecified; I49.5 Sick sinus syndrome; K57.30 Diverticulosis of large intestine without perforation or abscess without bleeding; I08.3 Combined rheumatic disorders of mitral, aortic and tricuspid valves; Z95.0 Presence of cardiac pacemaker; R26.89 Other abnormalities of gait and mobility; D75.89 Other specified diseases of blood and blood-forming organs; N40.0 Benign prostatic hyperplasia without lower urinary tract symptoms; Z79.82 Long term (current) use of aspirin; Z79.899 Other long term (current) drug therapy; Z95.1 Presence of aortocoronary bypass graft
CPT/HCPCS: 36415; 71046; 80048; 80053; 81001; 83605; 83735; 83880; 84484; 85025; 85610; 85730; 87636; 93005; 93306; 94760; 96374; 96375; 96376; 99285

== ENCOUNTER → 2024-02-05 | Outpatient (CLI) | payer MEDICARE ==
[2024-02-05 17:58] LABS: HCT 43.5 % (39.6-50.0); HGB 14.4 g/dL (13.0-17.0); MCHC 33.1 g/dL (32.0-37.0); MCV 108.8 FL (80.0-97.0); Mean Platelet Volume 11.5 FL (9.5-12.2); NRBC Per 100 WBC 0 X 10*3/uL (0.00-0.01); Platelet Count 148 X 10*3/uL (140-440); RDW 15.6 % (11.5-14.5); WBC 7.42 X 10*3/uL (4.50-10.00)
[2024-02-05 20:08] LABS: ALT 21 U/L (10-49); AST 42 U/L (14-35); Albumin 3.7 g/dL (3.8-4.9); Albumin/Globulin Ratio 1.06 Ratio (1.60-3.17); Alkaline Phosphatase 206 U/L (41-126); BUN/Creat Ratio 20.57 Ratio (12.00-20.00); Blood Urea Nitrogen 28.8 mg/dL (9.0-27.0); Calcium 9.1 mg/dL (8.7-10.3); Carbon Dioxide 22.5 mmol/L (21.6-31.8); Chloride 101 mmol/L (96-109); Globulin 3.5 g/dL (1.6-3.3); Glucose 102 mg/dL (70-110); Potassium 4.5 mmol/L (3.5-5.5); Sodium 139 mmol/L (135-145); T4, Free (Free Thyroxine) 0.79 ng/dL (0.80-1.80); Total Bilirubin 1.3 mg/dL (0.3-1.2); Total Protein 7.2 g/dL (6.2-8.2)
== END | disposition home or self-care (01) ==
LOC: LABWHC1 14:56
PROVIDERS: ATTEND Family Medicine
DX: I10 Essential (primary) hypertension (principal); E55.9 Vitamin D deficiency, unspecified; E78.5 Hyperlipidemia, unspecified; E03.9 Hypothyroidism, unspecified
CPT/HCPCS: 36415; 80053; 82306; 83036; 84439; 84443; 85027

== ENCOUNTER 2024-08-09 11:14 | Emergency (ER) | payer MEDICARE ==
[2024-08-09 11:24] VITALS: PULSE 70
--- NOTE | 2024-08-09 11:34 | ED ---
ENT HPI - General Chief complaint: ENT Stated complaint: Nose Bleed Time Seen by Provider: 08/09/24 11:34 Source: patient Mode of arrival: EMS Limitations: no limitations - History of Present Illness Initial comments: 89-year-old male presenting to the ER via EMS from [facility] for evaluation of epistaxis. Patient states approximately 40 minutes prior to arrival he started to notice a large amount of blood coming from his right nostril. He does report it is draining down the back of his throat. No bleeding from left nostril. He denies any injuries or traumas to the nose. No history of nosebleeds. Patient is unsure if he is on a blood thinner. Case was discussed with pharmacy who state patient is not currently on blood thinner. Patient admits to wearing nasal [place] oxygen at nighttime given hx heart failure. Patient denies any dizziness, lightheadedness, chest pain or shortness of breath prior to initiation of nosebleed. No other complaints. - Related Data Home Medications Medication Instructions Recorded Confirmed Adthyza 130mg 130 mg PO AC-BRKFST 06/25/23 08/09/24 Atorvastatin [Lipitor] 40 mg PO DAILY 10/23/23 08/09/24 Tamsulosin [Flomax] 0.4 mg PO DAILY 10/23/23 08/09/24 Empagliflozin [Jardiance] 10 mg PO DAILY 08/09/24 08/09/24 Previous Rx's Medication Instructions Recorded Metoprolol Succinate (ER) [Toprol 25 mg PO DAILY #90 tab 04/24/23 XL] Bumetanide [BUMEX] 1 mg PO BID #60 tab 10/26/23 Allergies Allergy/AdvReac Type Severity Reaction Status Date / Time No Known Allergies Allergy Verified 08/09/24 11:47 Review of Systems ROS Statement: Those systems with pertinent positive or pertinent negative responses have been documented in the HPI. ROS Other: All systems not noted in ROS Statement are negative. Past Medical History Past Medical History: Coronary Artery Disease (CAD), Heart Failure Additional Past Medical History / Comment(s): nose bleeds, History of Any Multi-Drug Resistant Organisms: None Reported Past Surgical History: Appendectomy, Coronary Bypass/CABG, Pacemaker Additional Past Surgical History / Comment(s): rt hip surgery 1986 Past Anesthesia/Blood Transfusion Reactions: No Reported Reaction Type of Cardiac Device: Permanent Pacemaker Device Placement Date:: unknown Past Psychological History: No Psychological Hx Reported Smoking Status: Never smoker Past Alcohol Use History: None Reported Past Drug Use History: None Reported General Exam Limitations: no limitations General appearance: alert, in no apparent distress ENT exam: Present: mucous membranes moist, other (Slow ooze from right nostril. Bilateral nostrils patent with no evidence of septal hematoma. Blood in mouth and oropharynx) Neck exam: Present: normal inspection. Absent: tenderness, meningismus, lymphadenopathy Respiratory exam: Present: normal lung sounds bilaterally. Absent: respiratory distress, wheezes, rales, rhonchi, stridor Cardiovascular Exam: Present: regular rate, normal rhythm, normal heart sounds. Absent: systolic murmur, diastolic murmur, rubs, gallop, clicks Neurological exam: Present: alert, oriented X3, CN II-XII intact Skin exam: Present: warm, dry, intact, normal color. Absent: rash Course Vital Signs 08/09/24 08/09/24 11:16 13:51 Temperature 98.8 F 98.6 F Pulse Rate 70 70 Respiratory 18 16 Rate Blood Pressure 119/75 115/82 O2 Sat by Pulse 95 96 Oximetry - Reevaluation(s) Reevaluation #1: 08/09/24 12:06 Patient reevaluated. Nose clamp removed. No active bleeding. Blood clot in place. No signs of acute distress. 08/09/24 12:30 Patient reevaluated. Patient rubbed his nose during conversation and bleeding restarted. Afrin readministered and nose clamp placed. No signs of acute distress. 08/09/24 13:07 Patient reevaluated. Nose clamp removed. No active bleeding. Patient in no signs of acute distress. Medical Decision Making - Medical Decision Making Was pt. sent in by a medical professional or institution (, PA, WHEEL INSPECTOR, urgent care, hospital, or [facility]...) When possible be specific @ -No Did you speak to anyone other than the patient for history (EMS, parent, family, police, friend...)? What history was obtained from this source @ -Patient's son, at bedside, aiding in HPI and PMHx. Did you review nursing and triage notes (agree or disagree)? Why? @ -I reviewed and agree with nursing and triage notes Were old charts reviewed (outside hosp., previous admission, EMS record, old EKG, old radiological studies, urgent care reports/EKG's, [facility] records)? Report findings @ -No old charts were reviewed Differential Diagnosis (chest pain, altered mental status, abdominal pain women, abdominal pain men, vaginal bleeding, weakness, fever, dyspnea, syncope, headache, dizziness, GI bleed, back pain, seizure, CVA, palpatations, mental health, musculoskeletal)? @ -Nasal bone fracture, septal hematoma, epistaxis... This list is not meant to be all-inclusive EKG interpreted by me (3pts min.). @ -None done X-rays interpreted by me (1pt min.). @ -None done CT interpreted by me (1pt min.). @ -None done U/S interpreted by me (1pt. min.). @ -None done What testing was considered but not performed or refused? (CT, X-rays, U/S, labs)? Why? @ -None What meds were considered but not given or refused? Why? @ -None Did you discuss the management of the patient with other professionals (professionals i.e. , PA, WHEEL INSPECTOR, lab, RT, psych nurse, social service coordinator, tree sapper, teacher, control officer, case management manager)? Give summary @ -No Was smoking cessation discussed for >3mins.? @ -No Was critical care preformed (if so, how long)? @ -No Were there social determinants of health that impacted care today? How? (Homelessness, low income, unemployed, alcoholism, drug addiction, transportation, low edu. Level, literacy, decrease access to med. care, half-way, rehab)? @ -No Was there de-escalation of care discussed even if they declined (Discuss DNR or withdrawal of care, Hospice)? DNR status @ -No What co-morbidities impacted this encounter? (DM, HTN, Smoking, COPD, CAD, Cancer, CVA, ARF, Chemo, Hep., AIDS, mental health diagnosis, sleep apnea, m orbid obesity)? @ -None Was patient admitted / discharged? Hospital course, mention meds given and route, prescriptions, significant lab abnormalities, going to OR and other pertinent info. @ -[Discharge. 89-year-old male presented to the ER via EMS for evaluation of epistaxis. Upon arrival, vital signs within acceptable limits. Patient in no signs of acute distress nontoxic-appearing. Exam remarkable for a slow ooze of blood out of the right nostril. There is no nasal bone tenderness or evidence of septal hematoma. Bilateral nares are patent. There is blood noticed in mouth and oropharynx. Afrin was administered and nose clamp placed. Patient reevaluated numerous times in the emergency department. There was 1 episode of rebleeding after patient was rubbing his nose for which patient was instructed to blow his nose, Afrin was readministered and nose clamp placed. Upon reevaluation, nose clamp was removed with no recurrence of bleeding after approximately 40 minutes of observation. Patient is stable for discharge at this time. I advised patient to avoid nasal manipulation or blowing nose I also recommended humidified air as patient uses nasal cannula oxygen at night and this may be contributing to nosebleed. Patient is stable for discharge at this time. Strict return parameters discussed. Patient discharged stable condition with follow-up to PCP. Patient and patient's son, at bedside, verbally expressed understanding agreement with care plan. Case discussed with ED attending, Dr. Kearney. Undiagnosed new problem with uncertain prognosis? @ -No Drug Therapy requiring intensive monitoring for toxicity (Heparin, Nitro, Insulin, Cardizem)? @ -No Were any procedures done? @ -No Diagnosis/symptom? @ -Epistaxis Acute, or Chronic, or Acute on Chronic? @ -Acute Uncomplicated (without systemic symptoms) or Complicated (systemic symptoms)? @ -Uncomplicated Side effects of treatment? @ -No Exacerbation, Progression, or Severe Exacerbation? @ -No Poses a threat to life or bodily function? How? (Chest pain, [place], [place], pneumonia, PE, COPD, DKA, ARF, appy, cholecystitis, CVA, Diverticulitis, Homicidal, Suicidal, threat to staff... and all critical care pts) @ -No Disposition Clinical Impression: Epistaxis Disposition: HOME SELF-CARE Condition: Stable Instructions (If sedation given, give patient instructions): Nosebleed (ED) Additional Instructions: Follow-up with PCP. Return to the ER for any new or worsening concerns. If bleeding were to recur blow nose 2-3 times then placed nose clamp. Leave nose clamp in place for approximately 20 to 30 minutes. Repeat the steps 3 times. Is patient prescribed a controlled substance at d/c from ED?: No Referrals: Inocencio Norman DO [Primary Care Provider] - 1-2 days Time of Disposition: 13:35
[2024-08-09] MEDS: OXYMETAZOLINE 0.05% NASL SPRAY 1 SPRAY BOTTLE NASAL STA (11:44)
[2024-08-09 13:53] VITALS: BP 115/82; RESP 16; TEMP 98.6
== END 2024-08-09 13:53 | disposition home or self-care (01) ==
LOC: EC 11:14
DX: Z53.9 Procedure and treatment not carried out, unspecified reason (principal)